=== PATIENT | female | born 1935 | race Caucasian/White ===

== ENCOUNTER → 2016-05-27 | Outpatient (CLI) | payer OTHER, BC | LOC: MMPC 11:11 | DX: J69.0 Pneumonitis due to inhalation of food and vomit (principal); K21.9 Gastro-esophageal reflux disease without esophagitis; K58.9 Irritable bowel syndrome, unspecified; K31.84 Gastroparesis; G47.30 Sleep apnea, unspecified; F41.9 Anxiety disorder, unspecified; I10 Essential (primary) hypertension; R73.9 Hyperglycemia, unspecified; G62.9 Polyneuropathy, unspecified | CPT/HCPCS: 99213; G0463 ==

== ENCOUNTER → 2016-07-02 | Outpatient (CLI) | payer OTHER, BC ==
--- NOTE | 2016-07-02 13:10 | DI ---
XR CXR 2VW PA/LAT,07/02/2016 11:10 AM: Clinical History: Recurrent aspiration pneumonia. Previous Exam: February 27, 2016 Findings: PA and lateral views of the chest are obtained, and demonstrate airspace disease within both lung bas es slightly worse than the prior exam. There is gentle dextroscoliosis of the midthoracic spine centered at the T5/6 level. The cardiomediastinal silhouette is unremarkable. Impression: Airspace disease within both lung bases most consistent with aspiration pneumonia. This is slightly w orse than on the prior exam.
[2016-07-02 13:15] LABS: CALCIUM 9.9 mg/dL (8.7-10.7); CREATININE 0.6 mg/dL (0.50-1.20); POTASSIUM 4.1 meq/L (3.8-5.2)
== END ==
LOC: MOB RAD 11:46
DX: J69.0 Pneumonitis due to inhalation of food and vomit (principal); I10 Essential (primary) hypertension
CPT/HCPCS: 36415; 71020; 80048

== ENCOUNTER → 2016-07-18 | Outpatient (CLI) | payer OTHER, BC | LOC: MMPC 11:11 | PROVIDERS: ATTEND Surgery | DX: R13.12 Dysphagia, oropharyngeal phase (principal); J69.0 Pneumonitis due to inhalation of food and vomit | CPT/HCPCS: 99212; G0463 ==

== ENCOUNTER 2016-07-19 08:02 | Day surgery (SDC) | payer OTHER, BC ==
[~2016-07-19 08:02] MED LIST: LIDOCAINE 2% VISCOUS(20 MG/1 ML) - 15 ML UD CUP PO ONE; LIDOCAINE W/ SODIUM BICARB 0.5 ML SYR ONE; Lactated Ringers 1,000 ML PRIMARY IV ONE; fentaNYL Inj 100 MCG/2 ML VIAL ONE
--- NOTE | 2016-07-19 09:08 | GEN.OPNOTE ---
EGD Operative Note Surgery Date: 07/19/16 Preoperative Diagnosis: Recurrent aspiration and oral pharyngeal dysphagia Postoperative Diagnosis: Same as preop Procedure: EGD with PEG tube placement Surgeon: Joao Blake MD Anesthesia Provider: Hai Cuevas CRNA Anesthesia Type: Local, MAC Indications: Patient has oropharyngeal dysphagia and recurrent aspiration pneumonias Findings: Esophagus: Olympus video EGD scope inserted and posterior pharynx appear to be normal.. Patient had normal-appearing esophagus. GE Junction : GE junction proximal for 30 cm from incisors Fundus : Fundus appeared be normal Body : Body had old scar from previous PEG tube Prepyloric : Prepyloric is free from disease Small Intestine : A lubricated flexible upper endoscope was inserted and passed through the esophagus and stomach into the duodenum. Additional Details: Patient had the abdominal wall transilluminated. We prepped the area with Betadine. Infiltrated 1% Xylocaine without epinephrine for local anesthetic. Placed a large-bore needle percutaneously into the stomach. This was then grasped with the snare. Guidewire was then placed through the needle. Guidewire was grasped. The needle was removed and guidewire was advanced to through the esophagus into the oropharyngeal out the mouth. PEG tube was secured to the guidewire small incision is made in the skin and the guidewire and PEG tube is brought up to the stomach and percutaneously. Is connected in place appropriately. She tolerated procedure well and there were no competitions
[2016-07-19 09:49] VITALS: RESP 16
[2016-07-19 10:24] VITALS: TEMP 97.4
== END 2016-07-19 10:20 | disposition home or self-care (01) ==
LOC: SDSC 08:02
PROVIDERS: ATTEND Surgery
DX: R13.12 Dysphagia, oropharyngeal phase (principal); J69.0 Pneumonitis due to inhalation of food and vomit
CPT/HCPCS: 43246; J2704; J3010; J7120

== ENCOUNTER → 2016-07-30 | Outpatient (CLI) | payer OTHER, BC | LOC: MMPC 11:11 | PROVIDERS: ATTEND Surgery | DX: Z48.815 Encounter for surgical aftercare following surgery on the digestive system (principal) ==

== ENCOUNTER → 2016-07-31 | Outpatient (CLI) | payer OTHER, BC | LOC: MMPC 09:00 | DX: J69.0 Pneumonitis due to inhalation of food and vomit (principal); K21.9 Gastro-esophageal reflux disease without esophagitis; G47.30 Sleep apnea, unspecified; I10 Essential (primary) hypertension; M16.12 Unilateral primary osteoarthritis, left hip; K58.9 Irritable bowel syndrome, unspecified | CPT/HCPCS: 99213; G0463 ==

== ENCOUNTER 2016-09-19 15:13 | Inpatient (IN) | payer OTHER, BC ==
[2016-09-19] MEDS ORDERED: Sodium Chloride 0.9% 1,000 ML PRIMARY IV ONE (15:33)
[2016-09-19] MEDS ORDERED: IPRATROPIUM/ALBUTEROL SULFATE 3 ML NEB NEB ONE (15:33)
[2016-09-19] MEDS ORDERED: NORMAL SALINE 10 ML SYRINGE FLUSH IVP PRN ×2 (15:33→20:31)
[2016-09-19 16:09] LABS: VENOUS PH 7.47 (7.32-7.42)
[2016-09-19 16:19] LABS: BASOPHILS # (AUTO) 0.03 10*3/UL; BASOPHILS % (AUTO) 0.2 % (0-1); EOSINOPHILS # (AUTO) 0.02 10*3/UL; EOSINOPHILS % (AUTO) 0.1 % (0-8); HEMATOCRIT 38.1 % (37.0-47.0); HEMOGLOBIN 12.4 g/dL (12.0-16.0); LYMPHOCYTES # (AUTO) 3.23 10*3/uL; MEAN CORPUSCULAR HEMOGLOBIN 29.7 PG (27-31); MEAN CORPUSCULAR HGB CONC 32.5 g/dL (33-37); MEAN CORPUSCULAR VOLUME 91.1 FL (81-99); MEAN PLATELET VOLUME 11.2 FL (7.4-12.2); MONOCYTES # (AUTO) 0.88 10*3/UL (0.3-0.8); MONOCYTES % (AUTO) 6.4 % (5-15); NEUTROPHILS % (AUTO) 69.5 % (50-80); RED BLOOD COUNT 4.18 10^6/uL (4.20-5.40)
[2016-09-19 16:22] LABS: PLATELET MORPHOLOGY COMMENT NORMAL MORPHOLOGY (NORM); RBC MORPHOLOGY COMMENT NORMAL MORPHOLOGY (NORM); WBC MORPHOLOGY COMMENT NORMAL MORPHOLOGY (NORM)
[2016-09-19 16:42] LABS: BUN/CREATININE RATIO 33.33 (6-20); C-REACTIVE PROTEIN 4.1 mg/dL (0.0-0.9); CALCIUM 9.2 mg/dL (8.7-10.7)
--- NOTE | 2016-09-19 17:14 | DI ---
XR CXR 2VW PA/LAT,09/19/2016 3:33 PM: Clinical History: Cough and dyspnea. Previous Exam: July 02, 2016 Findings: PA and lateral views of the chest are obtained, and demonstrate bronchiectasis within the lung bases bilaterally most consistent with chronic aspiration. There is some stable density within the lung bas es. There are some stable flattening of the hemidiaphragms as well. Impression: Bronchiectasis within the lung bases with some possible mild airspace disease without richard pneumonia at this time.
--- NOTE | 2016-09-19 19:13 | DI ---
CT CTA CHEST NONCORONARY W/WO,09/19/2016 4:59 PM: Clinical History: Dyspnea and elevated d-dimer. Previous Exam: November 05, 2015 Findings: Multiple helically acquired CT images are obtained through the chest following the intravenous admini stration of 70 cc of Isovue 300, and demonstrate airspace disease within the right lung base with sean e prominence in the parahilar region most consistent with lymphadenopathy. There is no pulmonary embo lism identified. There is some airspace disease within the left lung base as well. There is a PEG tube noted. Impression: Early bilateral lower lobe pneumonia most consistent with aspiration. No evidence of pulmonary embolism.
[2016-09-19] MEDS ORDERED: Ertapenem Inj 1 GM in Sodium Chloride 0.9% 100 ML IV ONE (19:37)
[2016-09-19] MEDS ORDERED: DOCUSATE SODIUM 100 MG PEG PRN (20:31)
[2016-09-19] MEDS ORDERED: LIDOCAINE W/ SODIUM BICARB 0.5 ML SYR SUBD PRN (20:31)
[2016-09-19] MEDS ORDERED: ONDANSETRON 4 MG/2 ML VIAL IVP PRN (20:31)
[2016-09-19] MEDS ORDERED: MELATONIN PO SCH (21:00)
[2016-09-19] MEDS ORDERED: PYRIDOXINE PO SCH (21:00)
[2016-09-19] MEDS: Clindamycin 900mg (Premix) 900 MG in Dextrose 1 BAG IV SCH (21:30)
[2016-09-19] MEDS: cefTRIAXone Inj 2 GM in Sodium Chloride 0.9% 100 ML IV SCH (21:30)
[2016-09-19] MEDS: DULOXETINE 60 MG CAPSULE PO SCH (21:34)
[2016-09-19] MEDS: GABAPENTIN 300 MG CAPSULE PO SCH (21:43)
[2016-09-19] MEDS: busPIRone HCL 5 MG TABLET PO SCH (21:44)
--- NOTE | 2016-09-19 21:49 | PDOC ---
History and Physical - History of Present Illness Date and Time of Service: 09/19/2016, 2141 Chief Complaint: Cough and fever History of Present Illness: Carey is a very pleasant 80-year-old female who has had problems with aspiration pneumonia and pneumonitis, accompanied with dysphasia from meningitis and weight loss. She comes in tonight stating that over the last 2 days she's noticed worsening cough and fever 101 yesterday. She states that she had sepsis with pneumonia, aspiration pneumonia, noted in April and was treated for this in [place] for about 5 days in the hospital. She was worried she can get much sicker and much more ill if she did not address this earlier. She came in for evaluation today and was found to have a right-sided pneumonia. This is in the lower lobe on chest x-ray and on CT scan. CT scan was negative for pulmonary emboli. The patient has not been on antibiotics since about May or so for aspiration pneumonia. She recently had her PEG tube replaced/3 done in July of this year. She details to me that she actually had the PEG tube pulled in February 2016 when her swallow study showed that she had improved swallow function. Since that time, the swallow function has worsened again. She weighed 136 pounds in 2015 at the time of her PEG tube placement. Her weight is now 123 pounds. The patient denies any nausea or vomiting. She notes that she has acid reflux and sometimes feels an acid taste in her throat. She is not on any acid reflux medications. She does not recall any specific aspiration event leading up to this pneumonia as an instigating factor, but the patient does note that she's had a chronic cough now for some time, and she also mentions that she had a vocal cord dysfunction on the right in the past as well. She states she occasionally coughs up some phlegm and she' s not sure if it comes from her stomach or not. On my review of the surgical note from her most recent PEG tube placement, her esophagus appeared normal. No other exacerbating factors. Her pneumonia severity index score was 69, class II pneumonia and her see CURB65 score was 1. Past Medical History Medical History: 1. Hypertension. 2. Idiopathic peripheral neuropathy. 3. Anxiety. 4. H. influenzae meningitis in 2013. 5. History of gastroparesis. 6. Obstructive sleep apnea, on CPAP. 7. Loss of weight, adult. 8. Recurrent aspiration pneumonia. Surgical History: 1. Cholecystectomy 2007. 2. Hysterectomy. 3. Degenerative disc disease status post rhizotomy in 2010. 4. Gallstone pancreatitis with cholecysectomy. 5. appendectomy. 6. Tonsillectomy and adenoidectomy. 7. PEG tube placement 2, most recently July 2016 Pertinent Family History: Congestive heart failure both parents Past Social History: Does not smoke. . Has children, grandchildren and 7 great-grandchildren. Does not drink alcohol. The patient's has dementia. The patient lives here in [place], [place]. Tobacco Use: Never Smoker Substance Use Type: None Alcohol Use: None Medication / Allergies Home Medications: Home Medications Medication Instructions Recorded Confirmed Type Gabapentin 1 cap PO TID #90 cap 09/26/14 09/19/16 Clinic busPIRone HCL [Buspirone HCl] 5 mg PO BID #60 tablet 12/15/14 09/19/16 Rx Fluticasone Nasal [place] 0.05% 2 spray INH BEDTIME PRN 11/05/15 09/19/16 History [Flonase Nasal [place] 0.05%] Docusate Sodium [Colace] 100 mg PEG BID PRN #100 ml 11/10/15 09/19/16 Rx Amlodipine Besylate 1 tab PO DAILY #90 tab 12/25/15 09/19/16 Clinic Melatonin/Pyridoxine [Melatonin 3 1 tab PO QD #30 tab 04/29/16 09/19/16 Clinic mg Tablet] Duloxetine HCl [Cymbalta] 1 cap PO BID #180 cap 07/02/16 09/19/16 Clinic Psyllium Husk (with Sugar) 1 unit PO DAILY 07/30/16 09/19/16 History [Metamucil Powder] Allergies/Adverse Reactions: Allergies Allergy/AdvReac Type Severity Reaction Status Date / Time Penicillins Allergy Intermediate HIVES Verified 09/19/16 15:34 Review of Systems - Review of Systems All Systems: Reviewed & No Additional Complaints Except as Stated (I did a 12 point review systems and it was negative except as per history of present illness and that noted below.) - Respiratory Respiratory: REPORTS: See HPI - Cardiovascular Cardiovascular: REPORTS: Negative System Review - Gastrointestinal Gastrointestinal / Abdominal: REPORTS: Constipation (Periodically, but relieved with MiraLAX), Poor Appetite, Other (States that she had a history of gastroparesis in the past) - Musculoskeletal Musculoskeletal: REPORTS: Back Pain, Joint Pain - Shoulders, Other (Complains of joint pain, particularly shoulders and back. Apparently had some back problems with arthritis in the past but they resolved and have been gradually returning.) - Neurological Neurologic: REPORTS: Headache (Yesterday, treated with liquid Advil. Not very common.) Exam - Vitals Vital Signs: Vital Signs Height 5 ft 5 in Weight 123 lb 12.8 oz Vital Signs - Last Taken Temperature 98 F 09/19/16 15:15 Pulse Rate 79 09/19/16 20:32 Respiratory Rate 18 09/19/16 20:32 Blood Pressure 139/74 09/19/16 15:15 Pulse Ox 91 09/19/16 15:15 Currently on room air. - General General Appearance: POSITIVE: No Acute Distress, Cooperative, Thin - Head Head Exam: POSITIVE: Normal Inspection, Normocephalic, Atraumatic - Eye Eye Exam: POSITIVE: EOMI, No Scleral Icterus - ENT ENT Exam: POSITIVE: Mucous Membranes Dry - Neck Neck Exam: POSITIVE: Normal Inspection, No Tenderness, No Thyromegaly - Respiratory Respiratory Exam: POSITIVE: Breathing Non Labored, Decreased Breath Sounds (In right lower base.) - Cardiovascular Cardiovascular Exam: POSITIVE: RRR, No Murmur, No Clicks, No Gallops, No Rubs, No JVD - GI/Abdominal GI/Abdominal Exam: POSITIVE: Normal Bowel Sounds, Non Tender, Non Distended, Soft Additional GI/Abdominal Exam Details: PEG tube site looks clean, dry, intact. Tube looks positioned correctly. - Rectal Rectal Exam: POSITIVE: Deferred - External Exam: POSITIVE: Deferred Exam: POSITIVE: Deferred - Extremities Extremities Exam: POSITIVE: No Clubbing Present, No Edema Present, No Cyanosis Present - Back Back Exam: POSITIVE: Normal Inspection, No CVA Tenderness - Neurological Neurological Exam: POSITIVE: Alert, Oriented x 3, No Facial Droop, Speech Intact / Clear, Moves All Extremities Equally - Psychiatric Psychiatric Exam: POSITIVE: Normal Affect, Normal Mood - Integumentary Integumentary Exam: POSITIVE: Normal Color, Warm, Dry, Intact Results - Labs CBC and BMP: 09/19/16 16:15 09/19/16 16:15 Labs - Last 24 Hours: Laboratory Results 09/19/16 09/19/16 Range/Units 15:59 16:15 WBC 13.69 H (4.8-10.8) 10^3/uL RBC 4.18 L (4.20-5.40) 10^6/uL Hgb 12.4 (12.0-16.0) g/dL Hct 38.1 (37.0-47.0) % MCV 91.1 (81-99) FL MCH 29.7 (27-31) PG MCHC 32.5 L (33-37) g/dL RDW Std Deviation 46.2 (39-50) fL RDW Coeff of Reid 14.2 (11.5-14.5) % Plt Count 251 (140-350) 10*3/uL MPV 11.2 (7.4-12.2) FL Immature Gran % (Auto) 0.2 (0-5) % Neut % (Auto) 69.5 (50-80) % Lymph % (Auto) 23.6 (10-50) % Alfalfa % (Auto) 6.4 (5-15) % Eos % (Auto) 0.1 (0-8) % Baso % (Auto) 0.2 (0-1) % Immature Gran # (Auto) 0.03 10*3/UL Neut # (Auto) 9.50 10*3/UL Lymph # (Auto) 3.23 10*3/uL [place]falfa # (Auto) 0.88 H (0.3-0.8) 10*3/UL Eos # (Auto) 0.02 10*3/UL Baso # (Auto) 0.03 10*3/UL WBC Morphology Comment Normal morphology (NORM) Plt Morphology Comment Normal morphology (NORM) RBC Morph Comment Normal morphology (NORM) D-Dimer 1.51 H (0.00-0.59) mg/L VBG pH 7.47 H (7.32-7.42) VBG pCO2 32 L (45-55) mmHg VBG HCO3 23 (22-26) mmol/L VBG Base Excess 0 (-2-2) MMOL/L Sodium 135 (135-145) meq/L Potassium 4.1 (3.8-5.2) meq/L Chloride 100 (98-112) meq/L Carbon Dioxide 24 (23-33) meq/L Anion Gap 11 (5-20) BUN 20 (7-22) mg/dL Creatinine 0.6 (0.50-1.20) mg/dL Estimated GFR (>60 ml/min/1.73m(2)) BUN/Creatinine Ratio 33.33 H (6-20) Glucose 130 H (78-110) mg/dL Calculated Osmolality 284.0 (267-292) mOsm/kg Lactic Acid 1.0 (0.70-2.10) MMOL/L Calcium 9.2 (8.7-10.7) mg/dL Total Bilirubin 0.7 (0.3-1.2) mg/dL AST 27 (8-39) IU/L ALT 28 (9-52) IU/L Alkaline Phosphatase 54 (38-126) IU/L Troponin I < 0.012 (< 0.040) ng/mL C-Reactive Protein 4.1 H (0.0-0.9) mg/dL NT-Pro-B Natriuret Pep 218 (0-450) PG/ML Total Protein 7.4 (6.1-8.0) g/dL Albumin 4.0 (3.5-4.8) g/dL Globulin 3.4 (2.50-4.10) g/dL Albumin/Globulin Ratio 1.10 L (1.3-2.0) mg/g - Imaging Status: Image Reviewed by Me (Chest x-ray, on my view, shows a right-sided pneumonia with a silhouette sign along the diaphragm. A CT scan of the chest on my view shows bilateral pneumonia, right greater than left. I did not notice any effusions.) Assessment and Plan - Patient Problems (1) Aspiration pneumonia Current Visit: Yes Status: Acute Qualifiers: Aspiration pneumonia type: due to regurgitated food Laterality: right Lung location: lower lobe of lung Qualified Description: Aspiration pneumonia of right lower lobe due to regurgitated food Qualifier Code(s): (J69.0) Pneumonitis due to inhalation of food and vomit (2) Dysphagia Current Visit: Yes Status: Chronic Qualifiers: Dysphagia type: other dysphagia Qualified Description: Other dysphagia Qualifier Code(s): (R13.19) Other dysphagia (3) Hypertension Current Visit: Yes Status: Chronic Qualifiers: Hypertension type: essential hypertension Qualified Description: Essential hypertension Qualifier Code(s): (I10) Essential (primary) hypertension (4) Peripheral neuropathy Current Visit: Yes Status: Chronic Qualifiers: Peripheral neuropathy type: idiopathic neuropathy, unspecified Qualified Description: Idiopathic peripheral neuropathy Qualifier Code(s) : (G60.9) Hereditary and idiopathic neuropathy, unspecified (5) S/P percutaneous endoscopic gastrostomy (PEG) tube placement Current Visit: Yes Status: Chronic (6) Anxiety Current Visit: Yes Status: Chronic (7) Obstructive sleep apnea Current Visit: Yes Status: Acute - Assessment / Plan Additional Assessment/Plan Details: Admit the patient. Clindamycin and Rocephin. May hopefully eliminate clindamycin but will watch clinical response over the next 48 hours. Also, given the recurrent nature of this and possible chronicity of this pneumonia, I may discuss with infectious disease tomorrow and see if they have any different recommendations. Prevnar 13 valent. The patient denies getting Pneumovax in [place] at the setting of her pneumonia. We'll get nutrition consult/dietary consult to help with tube feeding. Continue Jevity 1.5 and keep the patient upright at 30-45 to help prevent aspiration. I think the patient might benefit from a proton pump inhibitor, I will start Prevacid daily. May need to consider getting gastric emptying studies. I'll check a sedimentation rate, with the increased joint pain, polymyalgia rheumatica could certainly be in the differential although I suspect this is really pneumonia causing issues. I would expect a sedimentation rate to be elevated and pneumonia but not in the ranges of polymyalgia rheumatica. Check a phosphorous in the morning. I advised the patient to consider getting a bed that has the ability to elevate the head. Repeat swallow study in a.m. with OT. May need to continue speech therapy. May consider getting records on vocal cord dysfunction as well. That could be an issue and could explain why the patient is aspirating as well. Patient is full code, I discussed this with the patient and her daughter at bedside. I discussed the above plan with the patient and her daughter and they agreed with the plan. Photo / Body Diagrams - Uploaded Photos Uploaded Photos:
[2016-09-19] MEDS ORDERED: LANSOPRAZOLE 30 MG SOLUTAB PO ONE (22:00)
[2016-09-19] MEDS ORDERED: Pneumococcal Vacc 13 Syringe 0.5 ML DISP.SYRIN IM SCH (22:00)
[2016-09-19] MEDS: FLUTICASONE PROPIONATE 16 GRAM (120 SPRAYS / BOTTLE) ENOS SCH (22:20)
[2016-09-20] MEDS: Clindamycin 900mg (Premix) 900 MG in Dextrose 1 BAG IV SCH ×3 (04:21→22:28)
[2016-09-20] MEDS: NORMAL SALINE 10 ML SYRINGE FLUSH IVP PRN (04:22)
[2016-09-20 05:33] LABS: BASOPHILS # (AUTO) 0.03 10*3/UL; BASOPHILS % (AUTO) 0.3 % (0-1); EOSINOPHILS # (AUTO) 0.01 10*3/UL; EOSINOPHILS % (AUTO) 0.1 % (0-8); HEMOGLOBIN 12.2 g/dL (12.0-16.0); LYMPHOCYTES # (AUTO) 2.31 10*3/uL; MEAN CORPUSCULAR HEMOGLOBIN 29.9 PG (27-31); MEAN CORPUSCULAR VOLUME 90.7 FL (81-99); MEAN PLATELET VOLUME 11.9 FL (7.4-12.2); NEUTROPHILS # (AUTO) 7.96 10*3/UL; NEUTROPHILS % (AUTO) 70.7 % (50-80); RED BLOOD COUNT 4.08 10^6/uL (4.20-5.40)
[2016-09-20 05:35] LABS: PLATELET MORPHOLOGY COMMENT NORMAL MORPHOLOGY (NORM); RBC MORPHOLOGY COMMENT NORMAL MORPHOLOGY (NORM); WBC MORPHOLOGY COMMENT NORMAL MORPHOLOGY (NORM)
[2016-09-20 06:06] LABS: BUN/CREATININE RATIO 26.66 (6-20); CALCIUM 8.9 mg/dL (8.7-10.7)
[2016-09-20 06:27] LABS: ERYTHROCYTE SEDIMENTATION RATE 28 MM/HR (0-20)
[2016-09-20] MEDS: LANSOPRAZOLE 30 MG SOLUTAB PO SCH (06:38)
--- NOTE | 2016-09-20 07:18 | PDOC ---
General Adult HPI - General Chief Complaint: Dyspnea Stated Complaint: dyspnea Date Seen by Provider: 09/19/16 Time Seen by Provider: 15:15 Source: POSITIVE: Patient, Other (daughter) Exam Limitations: POSITIVE: No limitations Nurse's Notes Reviewed & Considered: Yes - History of Present Illness Initial Comment: The patient is a 80-year-old female. She states that for the past day, approximately, she has had increased cough and dyspnea. Patient states that she has a history of recurring aspiration pneumonia. She had a feeding tube placed in room to help reduce the frequency of her aspiration. Patient states that she thinks she might have been running a fever yesterday. She also complains of increased hoarseness for the past 2 days and some sore throat. Her daughter brought her to the emergency room. 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 Have you received a tetanus shot in the past 10 years?: Unknown Body Location Affected: REPORTS: Chest (Cough, shortness of breath) Timing: REPORTS: Gradual, Getting Worse Duration: <24 hours Severity: Moderate Quality: REPORTS: Other (No pain anywhere except for mild sore throat.) Context: REPORTS: None Modifying Factors: improves with: Coughing Similar Symptoms Previously: Yes Recent Care Received: REPORTS: Denies Any Prior Injuries Related to Current Complaint?: No - Patient Home Medications Home Medications: Home Medications Gabapentin 1 cap PO TID #90 cap 09/26/14 busPIRone HCL [Buspirone HCl] 5 mg PO BID #60 tablet 12/15/14 Fluticasone Nasal [place] 0.05% [Flonase Nasal [place] 0.05%] 2 spray INH BEDTIME PRN 11/05/15 Docusate Sodium [Colace] 100 mg PEG BID PRN #100 ml 11/10/15 Amlodipine Besylate 1 tab PO DAILY #90 tab 12/25/15 Melatonin/Pyridoxine [Melatonin 3 mg Tablet] 1 tab PO QD #30 tab 04/29/16 Duloxetine HCl [Cymbalta] 1 cap PO BID #180 cap 07/02/16 Psyllium Husk (with Sugar) [Metamucil Powder] 1 unit PO DAILY 07/30/16 - Patient Allergies Allergies/Adverse Reactions: Allergies Allergy/AdvReac Type Severity Reaction Status Date / Time Penicillins Allergy Intermediate HIVES Verified 09/20/16 06:28 Past Medical History - heen HEENT History: Denies History, Hard of Hearing Additional HEENT History: Bilateral Hearing aids. usually only wears left Cardiovascular History: Hypertension Respiratory History: Pneumonia, Home CPAP Use Additional Respiratory History: Home CPAP with oxygen at night. No oxygen during day. PNEUMONIA X 4 (LAST 04/2016). SILENT ASPIRATIONS/ PEG TUBE PLACEMENT 07/26 Gastrointestinal History: GERD, Irritable Bowel Syndrome Additional Gastrointestinal History: GASTROPARESIS Genitourinary History: Denies History Endocrine History: Denies History Musculoskeletal History: Arthritis Prosthesis or Implant: Yes (Left hip) Additional Musculoskeletal History: Had Left hip surgery November 2014 Neurological History: Meningitis Additional Neurological History: NEUROPATHY. Anxiety. PT's daughter states that patient does not have Alzheimer's or Dementia. MENINGITIS CAUSED NEUROPATHY Blood Disorders: Denies History Psychiatric History: Anxiety Disorders Additional Psychiatric History: anxiety History of Sexually Transmitted Diseases: No Female Reproductive History: Hysterectomy Cancer History: Denies History In Past Year Been Physically Harmed or Verbally Threatened: No History of MDRO: No Other Type of MDRO: bacterial menigitis Jan 2014 History of Other Communicable Diseases: No Tobacco Use: Never Smoker Alcohol Use: None Substance Use Type: None Previous Surgical History: Yes Type / Date of Surgery: LEFT FOOT S FEEDING TUBE/SOPHIE/TONSILLECTOMY/ HYSTERECTOMY, APPENDECTOMY, Left hip surgery, REMOVAL OF PANCREATIC STONE Anesthesia Reactions: No Malignant Hyperthermia: No Family History of Malignant Hyperthermia: No Significant Family History: No pertinent family hx Past Medical History Reviewed: Reviewed - No Changes ROS - Limitations ROS Limitations: No Limitations Constitution: REPORTS: Fever Cardiovascular: REPORTS: Denies Cardiac Symptoms Respiratory: REPORTS: Cough Productive, Shortness Of Breath Neurological: REPORTS: Denies Neuro Symptoms Gastrointestinal: REPORTS: Denies GI Symptoms Endocrine: REPORTS: Denies Symptoms Musculoskeletal: REPORTS: Denies MS Symptoms Genitourinary: REPORTS: Denies Symptoms Eyes: REPORTS: Denies Symptoms ENT: REPORTS: Sore Throat (Sore throat; hoarseness) Skin: REPORTS: Denies Skin Symptoms Lympathic: REPORTS: Denies Lympathic Symptoms Immunologic: POSITIVE: Denies Symptoms Psychiatric: POSITIVE: Denies Psych Symptoms General Adult Exam - General Appearance General Appearance: POSITIVE: Alert, Cooperative, No Acute Distress, No Evidence of Trauma - HEENT HEENT: POSITIVE: Head Inspection Nml, Eyes Inspection Nml, Ears Inspection Nml, Nose Inspection Nml, Oral/Dental Inspect. Nml, Pharynx Inspect. Nml, PERRL, EOMI - Pupils Pupil Size: 3 mm: Bilateral (PERRLA) - Neck Neck: POSITIVE: Normal Inspection, Thyroid Normal - Respiratory Respiratory: POSITIVE: Rales (Rales both lung bases) - Cardiovascular Cardiovascular: POSITIVE: Regular Rate & Rhythm, No Murmur, No Gallop, PMI Normal Peripheral Pulses: Radial (R): 2+, Radial (L): 2+ - Abdomen Abdomen: Soft: (All Quadrants), Normal Bowel Sounds: (All Quadrants), Denies Tenderness: (All Quadrants), No Splenomegaly: (All Quadrants), No Hepatomegaly: (All Quadrants), No Guarding: (All Quadrants), No Rebound: (All Quadrants), No Palpable Pulse: (All Quadrants), No Palpabale Mass: (All Quadrants), No Distention: (All Quadrants), No Rigidity: (All Quadrants) - Back Back: POSITIVE: Normal Inspection - Skin Skin: POSITIVE: Normal Color, Warm, Dry, No Rash - Extremities Extremity: Non-Tender: (All Extremities), Normal ROM: (All Extremities), Normal Inspection: (All Extremities) - Neurological / Psychological Neurological: POSITIVE: Oriented X3, 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 Normal As Tested, Motor Normal, Sensation Normal, 5, 6 General Adult Progress - Results Reviewed by me Xrays/CTs/US Reviewed by me: Yes Discussed with Radiologist: Yes Radiology Findings: Bronchiectasis with some airspace disease on chest x-ray; CTA chest shows bilateral lower lobe pneumonia Lab Results Reviewed: Yes Lab Results:: Laboratory Results 09/19/16 09/19/16 Range/Units 15:59 16:15 WBC 13.69 H (4.8-10.8) 10^3/uL RBC 4.18 L (4.20-5.40) 10^6/uL Hgb 12.4 (12.0-16.0) g/dL Hct 38.1 (37.0-47.0) % MCV 91.1 (81-99) FL MCH 29.7 (27-31) PG MCHC 32.5 L (33-37) g/dL RDW Std Deviation 46.2 (39-50) fL RDW Coeff of Reid 14.2 (11.5-14.5) % Plt Count 251 (140-350) 10*3/uL MPV 11.2 (7.4-12.2) FL Immature Gran % (Auto) 0.2 (0-5) % Neut % (Auto) 69.5 (50-80) % Lymph % (Auto) 23.6 (10-50) % [place] % (Auto) 6.4 (5-15) % Eos % (Auto) 0.1 (0-8) % Baso % (Auto) 0.2 (0-1) % Immature Gran # (Auto) 0.03 10*3/UL Neut # (Auto) 9.50 10*3/UL Lymph # (Auto) 3.23 10*3/uL [place] # (Auto) 0.88 H (0.3-0.8) 10*3/UL Eos # (Auto) 0.02 10*3/UL Baso # (Auto) 0.03 10*3/UL WBC Morphology Comment Normal morphology (NORM) Plt Morphology Comment Normal morphology (NORM) RBC Morph Comment Normal morphology (NORM) D-Dimer 1.51 H (0.00-0.59) mg/L VBG pH 7.47 H (7.32-7.42) VBG pCO2 32 L (45-55) mmHg VBG HCO3 23 (22-26) mmol/L VBG Base Excess 0 (-2-2) MMOL/L Sodium 135 (135-145) meq/L Potassium 4.1 (3.8-5.2) meq/L Chloride 100 (98-112) meq/L Carbon Dioxide 24 (23-33) meq/L Anion Gap 11 (5-20) BUN 20 (7-22) mg/dL Creatinine 0.6 (0.50-1.20) mg/dL Estimated GFR (>60 ml/min/1.73m(2)) BUN/Creatinine Ratio 33.33 H (6-20) Glucose 130 H (78-110) mg/dL Calculated Osmolality 284.0 (267-292) mOsm/kg Lactic Acid 1.0 (0.70-2.10) MMOL/L Calcium 9.2 (8.7-10.7) mg/dL Total Bilirubin 0.7 (0.3-1.2) mg/dL AST 27 (8-39) IU/L ALT 28 (9-52) IU/L Alkaline Phosphatase 54 (38-126) IU/L Troponin I < 0.012 (< 0.040) ng/mL C-Reactive Protein 4.1 H (0.0-0.9) mg/dL NT-Pro-B Natriuret Pep 218 (0-450) PG/ML Total Protein 7.4 (6.1-8.0) g/dL Albumin 4.0 (3.5-4.8) g/dL Globulin 3.4 (2.50-4.10) g/dL Albumin/Globulin Ratio 1.10 L (1.3-2.0) mg/g - Patient's Progress Pain Medication Addressed: POSITIVE: Not Applicable School/Work Release Addressed: POSITIVE: Not Applicable Re-Examine Time: 19:00 Re-Examine Comment: 1 g Invanz started after blood cultures. DuoNeb nebulizer treatment given. Patient states she feels somewhat better after this. Case discussed with hospitalist, Dr. Arzate, and patient admitted to his care. Status: POSITIVE: Improved, Re-Examined Antibiotics Given: Yes (Invanz, 1 g IV) Quality Measure Initiative: CAP: POSITIVE: SaO2, Antibiotic(s), BC, CXR or CT - Consult Consult (If Yes, Name of Consulting MD & Time Called): Yes (Dr. Arzate, hospitalist, 1919) Consulting MD will see pt:: [place]IVE[place] [facility] [place] Counseled: POSITIVE: Patient, Family, RE: Lab Results, RE: Radiology Results, RE : DX, RE: Need for F/U Patient Care Time - Estimated PCT Patient Care Time (In Minutes): 65 Vital Signs - VS Reviewed Vital Signs Reviewed: Yes Discharge Clinical Impression: Pneumonia Discharge Disposition: Admit to Inpatient Condition: Fair Date Decision to Admit to Inpatient: 09/19/16 Time Decision to Admit to Inpatient: 19:00
--- NOTE | 2016-09-20 09:20 | DI ---
XR ESOPHAGRAM,09/20/2016 7:00 AM: Clinical History: Aspiration Previous Exam: November 06, 2015 Procedure: Fluoroscopic support was provided to speech therapy for the performance of a modified mike um swallow. Applesauce with barium demonstrated normal clearance. There was some temporary suspension within the vallecula which was cleared with subsequent swallowing. Honey thickened liquids with barium demonstrated immediate penetration into the proximal trachea. Applesauce was again administered successfully without evidence of aspiration. Findings: Imaging findings demonstrate some penetration into the proximal trachea. There was good clearance of the thickened applesauce. Mild degenerative changes of the cervical spine are seen. Impression: Good clearance of applesauce with aspiration during the exam of honey thickened liquids. Please refer to speech pathology notes for further details.
[2016-09-20] MEDS: busPIRone HCL 5 MG TABLET PO SCH ×2 (09:57→21:31)
[2016-09-20] MEDS: ENOXAPARIN SODIUM 30 MG/0.3 ML SYRINGE SUBCUT SCH (09:57)
[2016-09-20] MEDS: DULOXETINE 60 MG CAPSULE PO SCH ×2 (09:58→21:31)
[2016-09-20] MEDS: GABAPENTIN 300 MG CAPSULE PO SCH ×3 (09:58→21:31)
--- NOTE | 2016-09-20 12:08 | PDOC(PROG) ---
Date and Time of Service: 09/20/2016, 1205 Interval History: Copies about the same. No fevers. Overall feeling a bit better. Started on Prevacid for reflux. I spoke with infectious disease, and detailed this conversation to the patient. Ultimately no indication for prophylactic antibiotics. They would be amenable to having the patient do when necessary antibiotics for fevers that develop at home. The patient thinks this might be a good idea. Keeping her head at 30-45 makes most sense. There may be some financial issues that are preventing the idea of getting a bed that can raise at home. Patient does not show delayed gastric emptying and I was able to review some records from the research/program director in [place] and the patient had normal vocal cord function. We also discussed the swallow evaluation which showed the patient has significant dysphasia. She really has not responded at all to speech therapy. Objective : Data - Labs CBC and BMP: 09/20/16 04:24 09/20/16 04:24 Labs - Last 24 Hours: Laboratory Results 09/20/16 Range/Units 04:24 WBC 11.24 H (4.8-10.8) 10^3/uL RBC 4.08 L (4.20-5.40) 10^6/uL Hgb 12.2 (12.0-16.0) g/dL Hct 37.0 (37.0-47.0) % MCV 90.7 (81-99) FL MCH 29.9 (27-31) PG MCHC 33.0 (33-37) g/dL RDW Std Deviation 45.3 (39-50) fL RDW Coeff of Reid 14.0 (11.5-14.5) % Plt Count 233 (140-350) 10*3/uL MPV 11.9 (7.4-12.2) FL Immature Gran % (Auto) 0.3 (0-5) % Neut % (Auto) 70.7 (50-80) % Lymph % (Auto) 20.6 (10-50) % [place] % (Auto) 8.0 (5-15) % Eos % (Auto) 0.1 (0-8) % Baso % (Auto) 0.3 (0-1) % Immature Gran # (Auto) 0.03 10*3/UL Neut # (Auto) 7.96 10*3/UL Lymph # (Auto) 2.31 10*3/uL [place] # (Auto) 0.90 H (0.3-0.8) 10*3/UL Eos # (Auto) 0.01 10*3/UL Baso # (Auto) 0.03 10*3/UL WBC Morphology Comment Normal morphology (NORM) Plt Morphology Comment Normal morphology (NORM) RBC Morph Comment Normal morphology (NORM) ESR 28 H (0-20) MM/HR Sodium 137 (135-145) meq/L Potassium 4.6 (3.8-5.2) meq/L Chloride 112 (98-112) meq/L Carbon Dioxide 24 (23-33) meq/L Anion Gap 1 L (5-20) BUN 16 (7-22) mg/dL Creatinine 0.6 (0.50-1.20) mg/dL Estimated GFR (>60 ml/min/1.73m(2)) BUN/Creatinine Ratio 26.66 H (6-20) Glucose 84 (78-110) mg/dL Calculated Osmolality 283.0 (267-292) mOsm/kg Calcium 8.9 (8.7-10.7) mg/dL Phosphorus 3.6 (2.4-4.3) mg/dl Objective : Exam - General General Appearance: No Acute Distress, Cooperative Additional General Exam Details: Vital Signs - Last Taken Temperature 97.8 F 09/20/16 08:18 Pulse Rate 77 09/20/16 08:18 Respiratory Rate 20 09/20/16 08:18 Blood Pressure 99/51 09/20/16 08:18 Pulse Ox 93 09/20/16 08:18 On room air - Head Head Exam: Normal Inspection, Normocephalic, Atraumatic - Eye Eye Exam: No Scleral Icterus - Respiratory Respiratory Exam: Breathing Non Labored, Coarse Breath Sounds - Cardiovascular Cardiovascular Exam: RRR, No Murmur, No Clicks, No Gallops, No Rubs, No JVD - GI/Abdominal GI/Abdominal Exam: Normal Bowel Sounds, Non Tender, Non Distended, Soft - Extremities Extremities Exam: No Clubbing Present, No Edema Present, No Cyanosis Present - Neurological Neurological Exam: Alert, Oriented x 3, No Facial Droop, Speech Intact / Clear, Moves All Extremities Equally Assessment and Plan - Patient Problems (1) Aspiration pneumonia Current Visit: Yes Status: Acute Comment: On day 2 of antibiotics. Qualifiers: Aspiration pneumonia type: due to regurgitated food Laterality: right Lung location: lower lobe of lung Qualified Description: Aspiration pneumonia of right lower lobe due to regurgitated food Qualifier Code(s): (J69.0) Pneumonitis due to inhalation of food and vomit (2) Dysphagia Current Visit: Yes Status: Chronic Comment: Not reversible. Likely related to meningitis in the past. Qualifiers: Dysphagia type: other dysphagia Qualified Description: Other dysphagia Qualifier Code(s): (R13.19) Other dysphagia (3) Hypertension Current Visit: Yes Status: Chronic Qualifiers: Hypertension type: essential hypertension Qualified Description: Essential hypertension Qualifier Code(s): (I10) Essential (primary) hypertension (4) Peripheral neuropathy Current Visit: Yes Status: Chronic Qualifiers: Peripheral neuropathy type: idiopathic neuropathy, unspecified Qualified Description: Idiopathic peripheral neuropathy Qualifier Code(s) : (G60.9) Hereditary and idiopathic neuropathy, unspecified (5) S/P percutaneous endoscopic gastrostomy (PEG) tube placement Current Visit: Yes Status: Chronic (6) Anxiety Current Visit: Yes Status: Chronic (7) Obstructive sleep apnea Current Visit: Yes Status: Acute - Assessment / Plan Additional Assessment/Plan Details: For GERD symptoms, and reflux with tube feeding, continue Prevacid. Although there are some reports that proton pump inhibitors can increase pneumonia risk, I think in this situation it might actually help decrease aspiration events. Get delayed gastric emptying studies, if positive, consider Reglan. Head of bed at 30-45 at all times, and if any residual show with tube feeding, may need to consider a constant rate versus bolus feeds. If afebrile tomorrow, probably switch to by mouth medications and consider discharge by Friday. Photo / Body Diagrams - Uploaded Photos Uploaded Photos:
--- NOTE | 2016-09-20 15:54 | OTI REPORT ---
Thank you for the referral of Kellie Bello. She was seen on 09/20/16 for a modified barium swallow study. SUBJECTIVE: The patient is a 80-year-old female. The patient has quite a significant history with swallowing difficulties. The patient initially had a modified barium swallow study done with Dr. Shelley. Approximately one year ago the patient was aspirating on all types of foods and liquids. The patient had a PEG tube placed in. After approximately three months of trying different types of therapy including vital-stim in [place], the patient stated she could not do this consistently. The patient underwent another barium swallow study in [place] and it revealed that she did aspirate on thin liquids but was doing okay with the thicker liquids and pureed and mechanical soft foods per patient's report, so the patient had the PEG tube taken out. Since that time the patient had pneumonia when she was visiting her son in [place] and it revealed that she was aspirating and they put the PEG tube back in secondary to the patient not getting enough nutrition to adequately keep herself at a healthy weight. The patient states she does want to be able to eat something. She more than likely has residual chronic pneumonia in the right lung but overall she would just like to make sure that she is safe eating. She states she has been taking her pills with honey thickened liquids and has been getting honey thickened water for home. PAST MEDICAL HISTORY: Past medical history can be found in the patient's medical record. OBJECTIVE FINDINGS: Today the patient started in a lateral view. The therapist is not going to go below a honey thickened liquid or a puree as these are the main goals for the patient. The patient started with applesauce. Today with applesauce the patient was able to place food on her tongue. Labial seal was maintained. The buccal musculature was able to close off the lateral sulci to prevent food particles from pocketing between the mandible and the cheeks. The velum actively pulls anteriorly and rests against the back of the tongue. During the oral phase, the tongue propelled the food posteriorly until the swallow reflex was triggered. The patient does have a slight decrease in tongue base retraction. She does have a slight stasis and coating of the tongue. She does have a delayed swallow trigger; once starting to swallow she has a slight delay in initiating this. She does not have any oral or nasal regurgitation; however , she does have pharyngeal regurgitation from the pharynx back into the oral area of her mouth with every swallow. Food is going back into the mouth with swallowing. Oral phase is initiated when the tongue begins posterior movement of the bolus. During the pharyngeal stage, the reflexive swallow did carry the bolus to the pharynx. Again, she was having regurgitation. During this time it was observed that the patient has decreased hyoid/thyroid approximation, decreased hyoid protraction, and decreased laryngeal elevation. When tested with honey thickened liquid, she did demonstrate penetration. This was only given to her in a small spoonful. After seeing penetration of the liquid, we did not further assess any honey thickened liquid. With applesauce she did not demonstrate penetration or aspiration; however, she does have a decreased pharyngeal squeeze, has increased vallecular pooling as well as piriformis pooling, and has moderate to severe amounts of vallecular residuals and piriformis residuals. The patient had to swallow five to six times before completely clearing the vallecular and piriformis regions. ASSESSMENT: The patient has been through quite a few different modified barium swallow studies as well as two different PEG placements. Today she demonstrated being able to eat pureed foods that are thicker such as applesauce and she would more than likely be safe with pudding and or yogurts; however, the honey thickened liquid presented a very high increased risk of continual aspiration with the penetration that she demonstrated during the swallow. 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 The patient does not feel the food and or liquid that is pooling and she did not feel the penetration that started with the honey thickened liquids. Dysfunction that the patient is demonstrating is: Decreased hyolaryngeal excursion Decreased airway protection with anything less than a puree form Decreased pharyngeal contraction Impaired muscle groups: Hyolaryngeal excursion muscles Laryngeal intrinsics Pharyngeal constrictors The modified barium study was discussed with Dr. Shelley as well as the patient and her daughter. At this time they are going to continue to talk about whether the patient would like to pursue more aggressive pharyngeal strengthening with vital-stim and be more consistent with it now that we can offer that in [place] or if the patient is just going to take small bites of pureed type foods throughout the day. The patient wants to improve her abilities and to eat more than she has been able to. She may benefit from vital-stim therapy aggressively for approximately one month and then to reassess with a modified barium swallow study to see if there has been improvements made. Again, no final decision is being made at this point in time until Dr. Shelley discusses further treatment with the patient and her family. INITIAL TREATMENT: Treatment today consisted of the modified barium swallow study only. EMILY
[2016-09-20] MEDS ORDERED: PYRIDOXINE J TUBE SCH (21:00)
[2016-09-20] MEDS ORDERED: MELATONIN J TUBE SCH (21:00)
[2016-09-20] MEDS: cefTRIAXone Inj 2 GM in Sodium Chloride 0.9% 100 ML IV SCH (21:32)
[2016-09-20] MEDS: FLUTICASONE PROPIONATE 16 GRAM (120 SPRAYS / BOTTLE) ENOS SCH (22:32)
[2016-09-21] MEDS: Clindamycin 900mg (Premix) 900 MG in Dextrose 1 BAG IV SCH (05:03)
[2016-09-21] MEDS: NORMAL SALINE 10 ML SYRINGE FLUSH IVP PRN (05:03)
[2016-09-21 07:51] VITALS: RESP 16
[2016-09-21] MEDS: LANSOPRAZOLE 30 MG SOLUTAB PO SCH (08:05)
[2016-09-21] MEDS ORDERED: AmLODIPine Tab 5 MG TABLET PO SCH (09:00)
[2016-09-21] MEDS: ENOXAPARIN SODIUM 30 MG/0.3 ML SYRINGE SUBCUT SCH (09:34)
[2016-09-21] MEDS: DULOXETINE 60 MG CAPSULE PO SCH (09:35)
[2016-09-21] MEDS: GABAPENTIN 300 MG CAPSULE PO SCH ×2 (09:35→15:20)
[2016-09-21] MEDS: busPIRone HCL 5 MG TABLET PO SCH (09:36)
[2016-09-21] MEDS ORDERED: CEFUROXIME 500 MG TABLET PO ONE (11:20)
[2016-09-21 12:02] VITALS: TEMP 98.2
--- NOTE | 2016-09-21 12:19 | DCSUMMARY ---
Hospitalization Summary Admit Date: 09/19/16 Discharge Date: 09/21/16 Primary Diagnosis:: aspiration pneumonia. Secondary Diagnosis:: Dysphagia, chronic Hospital Course: This very pleasant 80-year-old female with known dysphagia who presented with fever and cough and worsening right lower lobe infiltrate as well as a left lower lobe infiltrate on CT scan. The patient was admitted for treatment of an aspiration pneumonia. She was placed on clindamycin and Rocephin and has improved through the hospital stay. She still has a cough, but overall has improved. We did some studies to look at delayed gastric emptying and they were normal studies with normal gastric emptying. I suspect she has reflux despite negative EGD given her tube feeding. We placed her on Prevacid which seems to have helped. I discussed with infectious diseases and we felt like if the patient has reliable resources to help her if she has a fever outpatient she could probably start a course of antibiotics for resumed aspiration pneumonia and I have written antibiotics for one round of this outside hospital to try and save the patient hospital days. I discussed this thoroughly with the patient and her daughter. Her daughter will help manage this aspect of care. Patient would like to repeat chest x-ray to see if the pneumonia has cleared in the next 8 weeks and I think is very reasonable. Thus far, she has responded to therapy so I don't suspect that there is an underlying cancer, but should she not respond to appropriate therapy for aspiration pneumonia in the future, bronchoscopy could be considered to look for potential tumor and I do not think it's indicated at this time given drastic improvement in clinical condition. The patient's blood pressures were in a very good and sometimes low normal range , so we've asked her to cut her Norvasc back to 5 mg daily and review with Dr. Tello in the clinic. Today, no completes of chest pain or shortness breath. Cough is nonproductive. No nausea or vomiting. Patient would like to go home. Assessment and Plan: 1. As per discharge assessments noted 2. Disposition: Patient is discharged home. 3. Condition on discharge, stable and improved. 4. Diet: Nothing by mouth. Patient is instructed that she can eat if she would like but she is likely to aspirate. Continue tube feeding with Jevity 1.5, and free water flushes.. 5. Activities: resume normal activities 6. Follow-Up: 1. Dr. Tello later this next week 2. 7. Medications at the Time of Discharge: Home Medications Medication Instructions Recorded Confirmed Type Gabapentin 1 cap PO TID #90 cap 09/26/14 09/19/16 Clinic busPIRone HCL [Buspirone HCl] 5 mg PO BID #60 tablet 12/15/14 09/19/16 Rx Fluticasone Nasal [place] 0.05% 2 spray INH BEDTIME PRN 11/05/15 09/19/16 History [Flonase Nasal [place] 0.05%] Docusate Sodium [Colace] 100 mg PEG BID PRN #100 ml 11/10/15 09/19/16 Rx Melatonin/Pyridoxine [Melatonin 3 1 tab PO QD #30 tab 04/29/16 09/19/16 Clinic mg Tablet] Duloxetine HCl [Cymbalta] 1 cap PO BID #180 cap 07/02/16 09/19/16 Clinic Psyllium Husk (with Sugar) 1 unit PO DAILY 07/30/16 09/19/16 History [Metamucil Powder] Amlodipine Besylate 5 mg PO DAILY #90 tab 09/21/16 09/19/16 Rx Cefuroxime Axetil [Ceftin] 500 mg PO BID #10 tab 09/21/16 Rx Clindamycin HCl [Cleocin HCl] 300 mg PO TID #30 cap 09/21/16 Rx Lansoprazole [Prevacid] 30 mg PO DAILY #30 suspdr.rec 09/21/16 Rx 8. Time, care, counseling and coordination of care for this discharge is greater than 30 minutes. Exam - Vitals Vital Signs: Vital Signs Vital Signs - Last Taken Temperature 98.2 F 09/21/16 12:00 Pulse Rate 67 09/21/16 12:00 Respiratory Rate 16 09/21/16 12:00 Blood Pressure 86/57 09/21/16 12:00 Pulse Ox 94 09/21/16 12:00 Weight 122 lb 6.4 oz - General General Appearance: POSITIVE: No Acute Distress, Cooperative - Head Head Exam: POSITIVE: Normal Inspection, Normocephalic, Atraumatic - Eye Eye Exam: POSITIVE: No Scleral Icterus - Respiratory Respiratory Exam: POSITIVE: Breathing Non Labored, Coarse Breath Sounds (Right lower base.) - Cardiovascular Cardiovascular Exam: POSITIVE: RRR, No Murmur, No Clicks, No Gallops, No Rubs, No JVD - GI/Abdominal GI/Abdominal Exam: POSITIVE: Normal Bowel Sounds, Non Tender, Non Distended, Soft - Extremities Extremities Exam: POSITIVE: No Clubbing Present, No Edema Present, No Cyanosis Present - Neurological Neurological Exam: POSITIVE: Alert, Oriented x 3, No Facial Droop, Speech Intact / Clear, Moves All Extremities Equally Data Perinent Studies: Laboratory Results 09/19/16 09/19/16 09/20/16 Range/Units 15:59 16:15 04:24 WBC 13.69 H 11.24 H (4.8-10.8) 10^3/uL RBC 4.18 L 4.08 L (4.20-5.40) 10^6/uL Hgb 12.4 12.2 (12.0-16.0) g/dL Hct 38.1 37.0 (37.0-47.0) % MCV 91.1 90.7 (81-99) FL MCH 29.7 29.9 (27-31) PG MCHC 32.5 L 33.0 (33-37) g/dL RDW Std Deviation 46.2 45.3 (39-50) fL RDW Coeff of Reid 14.2 14.0 (11.5-14.5) % Plt Count 251 233 (140-350) 10*3/uL MPV 11.2 11.9 (7.4-12.2) FL Immature Gran % (Auto) 0.2 0.3 (0-5) % Neut % (Auto) 69.5 70.7 (50-80) % Lymph % (Auto) 23.6 20.6 (10-50) % [place] % (Auto) 6.4 8.0 (5-15) % Eos % (Auto) 0.1 0.1 (0-8) % Baso % (Auto) 0.2 0.3 (0-1) % Immature Gran # (Auto) 0.03 0.03 10*3/UL Neut # (Auto) 9.50 7.96 10*3/UL Lymph # (Auto) 3.23 2.31 10*3/uL [place] # (Auto) 0.88 H 0.90 H (0.3-0.8) 10*3/UL Eos # (Auto) 0.02 0.01 10*3/UL Baso # (Auto) 0.03 0.03 10*3/UL WBC Morphology Comment Normal morphology Normal morphology (NORM) Plt Morphology Comment Normal morphology Normal morphology (NORM) RBC Morph Comment Normal morphology Normal morphology (NORM) ESR 28 H (0-20) MM/HR D-Dimer 1.51 H (0.00-0.59) mg/L VBG pH 7.47 H (7.32-7.42) VBG pCO2 32 L (45-55) mmHg VBG HCO3 23 (22-26) mmol/L VBG Base Excess 0 (-2-2) MMOL/L Sodium 135 137 (135-145) meq/L Potassium 4.1 4.6 (3.8-5.2) meq/L Chloride 100 112 (98-112) meq/L Carbon Dioxide 24 24 (23-33) meq/L Anion Gap 11 1 L (5-20) BUN 20 16 (7-22) mg/dL Creatinine 0.6 0.6 (0.50-1.20) mg/dL Estimated GFR (>60 ml/min/1.73m(2)) BUN/Creatinine Ratio 33.33 H 26.66 H (6-20) Glucose 130 H 84 (78-110) mg/dL Calculated Osmolality 284.0 283.0 (267-292) mOsm/kg Lactic Acid 1.0 (0.70-2.10) MMOL/L Calcium 9.2 8.9 (8.7-10.7) mg/dL Phosphorus 3.6 (2.4-4.3) mg/dl Total Bilirubin 0.7 (0.3-1.2) mg/dL AST 27 (8-39) IU/L ALT 28 (9-52) IU/L Alkaline Phosphatase 54 (38-126) IU/L Troponin I < 0.012 (< 0.040) ng/mL C-Reactive Protein 4.1 H (0.0-0.9) mg/dL NT-Pro-B Natriuret Pep 218 (0-450) PG/ML Total Protein 7.4 (6.1-8.0) g/dL Albumin 4.0 (3.5-4.8) g/dL Globulin 3.4 (2.50-4.10) g/dL Albumin/Globulin Ratio 1.10 L (1.3-2.0) mg/g Procedures: Delayed gastric imaging study was negative for delayed gastric emptying. Swallow evaluation shows continued dysphasia. The patient is a silent aspirator. She has to swallow 5 times to clear, side don't think anything by mouth makes any sense. Patient Problems - Patient Problem List (1) Aspiration pneumonia Current Visit: Yes Status: Acute Qualifiers: Aspiration pneumonia type: due to regurgitated food Laterality: right Lung location: lower lobe of lung Qualified Description: Aspiration pneumonia of right lower lobe due to regurgitated food Qualifier Code(s): (J69.0) Pneumonitis due to inhalation of food and vomit (2) Dysphagia Current Visit: Yes Status: Chronic Qualifiers: Dysphagia type: other dysphagia Qualified Description: Other dysphagia Qualifier Code(s): (R13.19) Other dysphagia (3) Hypertension Current Visit: Yes Status: Chronic Qualifiers: Hypertension type: essential hypertension Qualified Description: Essential hypertension Qualifier Code(s): (I10) Essential (primary) hypertension (4) Peripheral neuropathy Current Visit: Yes Status: Chronic Qualifiers: Peripheral neuropathy type: idiopathic neuropathy, unspecified Qualified Description: Idiopathic peripheral neuropathy Qualifier Code(s) : (G60.9) Hereditary and idiopathic neuropathy, unspecified (5) S/P percutaneous endoscopic gastrostomy (PEG) tube placement Current Visit: Yes Status: Chronic (6) Anxiety Current Visit: Yes Status: Chronic (7) Obstructive sleep apnea Current Visit: Yes Status: Acute
[2016-09-21] MEDS ORDERED: CLINDAMYCIN 150 MG CAPSULE PO SCH (15:00)
[2016-09-21] MEDS ORDERED: CEFUROXIME 500 MG TABLET PO SCH (21:00)
--- NOTE | 2016-09-23 14:44 | PTI REPORT ---
Thank you for the referral of Kellie Bello. She was seen on 09/20/16 for an inpatient evaluation secondary to weakness and pneumonia. SUBJECTIVE: The patient is a 80-year-old female. The patient reports that she lives at home with her . She is the primary caregiver as her has Alzheimer's. The patient reports that she has had pneumonia multiple times. The patient's balance isn't very good; she has a four wheeled walker at home but walks with a single point cane. The patient has been receiving therapy for her neck and strengthening. Nursing okayed treatment prior to today's session. PAST MEDICAL HISTORY: Past medical history can be found in the patient's medical record. OBJECTIVE FINDINGS: General observations: The patient was seen supine in bed. Vitals: Oxygen saturation ranged from 85-95%, depending on types of activities we were doing. At rest it was 93%. Bed mobility: The patient was independent with bed mobility. Ambulation: The patient requires min to mod assist x1 for gait with hand hold assistance and single point cane. The patient was very unsteady and demonstrated sway back gait pattern. The patient may benefit from walker; she was educated on the importance of four wheeled walker, but the patient is happy with her cane at this time. The patient states she reaches for furniture to stay balanced. Balance: The patient's balance is poor. Strength: The patient's strength is 3/5 grossly in bilateral lower extremities. Endurance: The patient's endurance is fair to poor. ASSESSMENT: The patient is a 80-year-old female that presents with generalized weakness and decreased mobility. The patient's balance is poor. The patient would benefit from therapy to improve strength and balance in order to return home safely and reduce risk for falls. The patient's prognosis for therapy is fair. Problem List: Decreased strength Decreased balance Decreased functional mobility Short-Term Goals: To be met by discharge from inpatient: Patient will be independent with all transfers. Patient will be able to ambulate 300 feet with least restrictive assistive device independently. Patient will be able to tolerate 15 minutes of continuous activity. Long-Term Goals: To be met following discharge from inpatient: Patient will benefit from continued outpatient skilled physical therapy. TREATMENT PLAN: Patient will be seen B.I.D during the week and one time per day over the weekend as an inpatient for therapeutic exercise, functional activity, gait training, neuromuscular reeducation, manual therapy as needed, and modalities as needed. INITIAL TREATMENT: Treatment today consisted of the initial evaluation followed by therapeutic exercise. The patient was instructed to perform 10 sit to stands with contact guard assist x1 for safety. The patient was instructed in seated minute drills x30 seconds each x3 bilaterally. The patient complained of left quad pain and hip pain. The patient was instructed in seated marches x20, seated long arc quads x20, and isometric resisted trunk strengthening with moderate perturbations x30 seconds x2. The patient was returned to her chair following treatment today with chair alarm activated and call light within reach. EMILY
--- NOTE | 2016-09-23 15:02 | PT AM DAY ---
Diagnosis : Weakness/Pneumonia AM - Physical Therapy S: The patient reports she is still on her feeding tube and is not eating or drinking anything. They tried to get her on thickened liquids, but she was unable to pass the test. The patient states she is very tired and out of breath. O: The patient performed 10 sit to stand transfers and ambulated around the nurse's station x3. The patient performed toileting followed by hygiene and ADLs at the sink including washing her hands, brushing her teeth, combing her hair, etc. working on standing balance. A: At this time the patient is very off balance. She is a safety risk for falling due to weakness. The patient did misstep several times during ambulation and she did need contact guard assist during all of her functional ADLs at the sink. P: Continue seeing patient BID during the week and one time per day over the weekend for transfers, ambulation, and range of motion/strengthening exercises. MTDD
--- NOTE | 2016-09-26 14:30 | DI ---
History: Dysphasia and aspiration Technique: 1.2 mCi of sulfur coli suspended in hilar could protein. Findings: Images were taken through 85-90 minutes. Gastric emptying calculated at 37%. T half is 77 minutes. Impression: At 90 minutes, > 35% emptying is normal. For gastric emptying T 1/2, the normal range for liquids is 10-45 minutes. The normal range for solids is 60-105 minutes.
== END 2016-09-21 15:48 | disposition home or self-care (01) | DRG 179 ==
LOC: ER 15:13 → MED/SURG 19:45
PROVIDERS: ADMIT Family Medicine; ATTEND Family Medicine
DX: J18.9 Pneumonia, unspecified organism (principal); J69.0 Pneumonitis due to inhalation of food and vomit; R13.10 Dysphagia, unspecified; I10 Essential (primary) hypertension; G62.9 Polyneuropathy, unspecified; F41.9 Anxiety disorder, unspecified; G47.33 Obstructive sleep apnea (adult) (pediatric)
CPT/HCPCS: 36415; 71020; 71275; 80053; 82803; 83605; 83880; 84484; 85025; 85379; 86140; 87040; 94640; 99284 ×2; J7620; 74220; 78264; 80048; 84100; 85652; 90670; 94761; 97110; 97161; 97530; 97750; J0696; J1335; J1650; J3490; J7030; J7050

== ENCOUNTER → 2016-09-30 | Outpatient (CLI) | payer OTHER, BC | LOC: MMPC 11:11 | DX: J69.0 Pneumonitis due to inhalation of food and vomit (principal); K21.9 Gastro-esophageal reflux disease without esophagitis; G47.30 Sleep apnea, unspecified; I10 Essential (primary) hypertension; F41.9 Anxiety disorder, unspecified; M16.12 Unilateral primary osteoarthritis, left hip; R53.81 Other malaise; M54.5 Low back pain | CPT/HCPCS: 99213; G0463 ==

== ENCOUNTER → 2016-11-02 | Outpatient (CLI) | payer OTHER, BC | LOC: MMPC 09:00 | DX: R19.7 Diarrhea, unspecified (principal); K58.9 Irritable bowel syndrome, unspecified; K31.84 Gastroparesis; K21.9 Gastro-esophageal reflux disease without esophagitis ==

== ENCOUNTER → 2016-11-05 | Outpatient (CLI) | payer OTHER, BC | LOC: LAB 15:43 | DX: R19.7 Diarrhea, unspecified (principal); K21.9 Gastro-esophageal reflux disease without esophagitis; K31.84 Gastroparesis; G47.30 Sleep apnea, unspecified; I10 Essential (primary) hypertension; J69.0 Pneumonitis due to inhalation of food and vomit; F41.9 Anxiety disorder, unspecified | CPT/HCPCS: 87493 ==

== ENCOUNTER → 2016-11-25 | Outpatient (CLI) | payer OTHER, BC | LOC: LAB 11:18 | DX: R19.7 Diarrhea, unspecified (principal) | CPT/HCPCS: 87493 ==

== ENCOUNTER 2016-11-26 17:15 | Emergency (ER) | payer OTHER, BC ==
[2016-11-26] MEDS ORDERED: Sodium Chloride 0.9% 1,000 ML PRIMARY IV ONE (17:44)
--- NOTE | 2016-11-26 17:47 | PDOC ---
Nausea/Vomiting/Diarrhea HPI - General Chief Complaint: Nausea / Vomiting / Diarrhea Stated Complaint: Diarrhea / C-Diff / Weakness Date Seen by Provider: 11/26/16 Time Seen by Provider: 17:44 Source: POSITIVE: Patient, Other (Daughter) Nurse's Notes Reviewed & Considered: Yes - History of Present Illness Initial Comments: Dipti is a 80-year-old female who presents to the emergency department for evaluation of possible dehydration. Patient was admitted earlier in the year for aspiration pneumonia. She was treated with antibiotics at that time. Subsequently she developed Clostridium difficile diarrhea patient has completed 1 course of Flagyl. She retested her stool given persistent diarrhea which is still positive. A second course of Flagyl has been ordered. She has not had increase in fluid amount through her G-tube since her diarrhea. She reports her mouth is very dry. She gets occasional abdominal cramping. Worse with diarrhea. No relieving factors. Mild and overall severity. No fevers. Her cough and pneumonia seem to have improved. - Patient Home Medications Home Medications: Home Medications Gabapentin 1 cap PO TID #90 cap 09/26/14 busPIRone HCL [Buspirone HCl] 5 mg PO BID #60 tablet 12/15/14 Fluticasone Nasal [place] 0.05% [Flonase Nasal [place] 0.05%] 2 spray INH BEDTIME PRN 11/05/15 Duloxetine HCl [Cymbalta] 1 cap PO BID #180 cap 07/02/16 Amlodipine Besylate 5 mg PO DAILY #90 tab 09/21/16 Lansoprazole [Prevacid] 30 mg PO DAILY #30 suspdr.rec 09/21/16 Metronidazole 1 tab PO TID #42 tab 11/25/16 - Patient Allergies Allergies/Adverse Reactions: Allergies Allergy/AdvReac Type Severity Reaction Status Date / Time Penicillins Allergy Intermediate HIVES Verified 11/26/16 19:01 Past Medical History - heen HEENT History: Denies History, Hard of Hearing Additional HEENT History: Bilateral Hearing aids. usually only wears left Cardiovascular History: Hypertension Respiratory History: Pneumonia, Home CPAP Use Additional Respiratory History: Home CPAP with oxygen at night. No oxygen during day. PNEUMONIA X 4 (LAST 04/2016). SILENT ASPIRATIONS/ PEG TUBE PLACEMENT 07/26 Gastrointestinal History: GERD, Irritable Bowel Syndrome Additional Gastrointestinal History: GASTROPARESIS Genitourinary History: Denies History Endocrine History: Denies History Musculoskeletal History: Arthritis Prosthesis or Implant: Yes (Left hip) Additional Musculoskeletal History: Had Left hip surgery November 2014 Neurological History: Meningitis Additional Neurological History: NEUROPATHY. Anxiety. PT's daughter states that patient does not have Alzheimer's or Dementia. MENINGITIS CAUSED NEUROPATHY Blood Disorders: Denies History Psychiatric History: Anxiety Disorders Additional Psychiatric History: anxiety History of Sexually Transmitted Diseases: No Cancer History: Denies History History of MDRO: No Other Type of MDRO: bacterial menigitis Jan 2014 History of Other Communicable Diseases: No Alcohol Use: None Substance Use Type: None Previous Surgical History: Yes Type / Date of Surgery: LEFT FOOT SX FEEDING TUBE/SOPHIE/TONSILLECTOMY/ HYSTERECTOMY, APPENDECTOMY, Left hip surgery, REMOVAL OF PANCREATIC STONE Anesthesia Reactions: No Malignant Hyperthermia: No Significant Family History: No pertinent family hx Past Medical History Reviewed: Reviewed - No Changes ROS - Limitations ROS Limitations: No Limitations Constitution: REPORTS: Denies Symptoms. DENIES: Chills, Fever Cardiovascular: REPORTS: Denies Cardiac Symptoms Respiratory: REPORTS: Denies Resp Symptoms Neurological: REPORTS: Denies Neuro Symptoms Gastrointestinal: REPORTS: Diarrhea Musculoskeletal: REPORTS: Denies MS Symptoms Genitourinary: REPORTS: Denies Symptoms Eyes: REPORTS: Denies Symptoms ENT: REPORTS: Other (Dry mouth) Skin: DENIES: Rash Nausea/Vomiting/Diarrhea Exam - General Appearance General Appearance: POSITIVE: Alert, Cooperative, No Acute Distress, No Evidence of Trauma - HEENT HEENT: POSITIVE: Head Inspection Nml, Dry Mucous Membranes - Neck Neck: POSITIVE: Supple - Respiratory Respiratory: POSITIVE: Other (Somewhat coarse without wheezes) - Cardiovascular Cardiovascular: POSITIVE: Regular Rate and Rhythm - Abdomen Abdomen: Soft: (All Quadrants), Normal Bowel Sounds: (All Quadrants), Denies Tenderness: (All Quadrants), No Guarding: (All Quadrants), No Rebound: (All Quadrants) Additional Abdominal Details: G-tube intact without erythema, drainage, discharge. - Skin Skin: POSITIVE: Warm, Dry - Neurological / Psychological Neurological: POSITIVE: Affect Apporpriate N/V/D Progress - Results Reviewed by me Lab Results:: Laboratory Results 11/26/16 Range/Units 18:46 WBC 10.86 H (4.8-10.8) 10^3/uL RBC 4.01 L (4.20-5.40) 10^6/uL Hgb 12.3 (12.0-16.0) g/dL Hct 37.1 (37.0-47.0) % MCV 92.5 (81-99) FL MCH 30.7 (27-31) PG MCHC 33.2 (33-37) g/dL RDW Std Deviation 48.0 (39-50) fL RDW Coeff of [place] 14.5 (11.5-14.5) % Plt Count 297 (140-350) 10*3/uL MPV 10.6 (7.4-12.2) FL Immature Gran % (Auto) 0.3 (0-5) % Neut % (Auto) 75.1 (50-80) % Lymph % (Auto) 16.5 (10-50) % [place] % (Auto) 7.8 (5-15) % Eos % (Auto) 0 (0-8) % Baso % (Auto) 0.3 (0-1) % Immature Gran # (Auto) 0.03 10*3/UL Neut # (Auto) 8.16 10*3/UL Lymph # (Auto) 1.79 10*3/uL [place] # (Auto) 0.85 H (0.3-0.8) 10*3/UL Eos # (Auto) 0 10*3/UL Baso # (Auto) 0.03 10*3/UL WBC Morphology Comment Normal morphology (NORM) Plt Morphology Comment Normal morphology (NORM) RBC Morph Comment Normal morphology (NORM) Sodium 133 L (135-145) meq/L Potassium 4.0 (3.8-5.2) meq/L Chloride 100 (98-112) meq/L Carbon Dioxide 25 (23-33) meq/L Anion Gap 8 (5-20) BUN 18 (7-22) mg/dL Creatinine 0.6 (0.50-1.20) mg/dL Estimated GFR (>60 ml/min/1.73m(2)) BUN/Creatinine Ratio 30.00 H (6-20) Glucose 95 (78-110) mg/dL Calculated Osmolality 277.0 (267-292) mOsm/kg Calcium 8.8 (8.7-10.7) mg/dL Magnesium 1.7 (1.6-2.4) mg/dL - Patient's Progress MDM / ED Course: Patient is a 80-year-old female who presents to the emergency department with dehydration. Her vital signs are unremarkable and examination demonstrates well -appearing elderly female with signs of dehydration. Patient's laboratory studies demonstrated a mild decrease in her sodium. Otherwise were unremarkable. I suspect that her dehydration is due to her diarrhea without increase in her free water intake from her tube feed. I will have her increase her free water intake and recheck with the dietitian to ensure adequate fluid administration during the illness. has also seen infectious disease in the past with continued C. difficile she will follow up with her infectious disease provider and continue metronidazole for now. Patient Care Time - Estimated PCT Patient Care Time (In Minutes): 35 Vital Signs - Recent Vital Signs Vital Signs: Vital Signs (Last 8 hours) Temp Pulse Resp BP Pulse Ox 11/26/16 17:25 98.4 F 82 18 136/66 91 - VS Reviewed Vital Signs Reviewed: Yes Discharge Clinical Impression: Dehydration Discharge Disposition: Discharged to Home Condition: Good Patient Instructions Given at Discharge: Dehydration (ED) Additional Instructions: Thank you for coming to the emergency department. You have appear to be dehydrated from your infection. Please increase your fluid intake from your G- tube by 250 mL [place] and recheck with your dietitian to ensure adequate fluid intake. Please consider following up with your infectious disease provider for continued evaluation of your Clostridium difficile infection. Return to the emergency department for any worsening symptoms.
[2016-11-26 18:51] LABS: BASOPHILS # (AUTO) 0.03 10*3/UL; BASOPHILS % (AUTO) 0.3 % (0-1); EOSINOPHILS # (AUTO) 0 10*3/UL; EOSINOPHILS % (AUTO) 0 % (0-8); HEMATOCRIT 37.1 % (37.0-47.0); HEMOGLOBIN 12.3 g/dL (12.0-16.0); LYMPHOCYTES # (AUTO) 1.79 10*3/uL; MEAN CORPUSCULAR HEMOGLOBIN 30.7 PG (27-31); MEAN CORPUSCULAR HGB CONC 33.2 g/dL (33-37); MEAN CORPUSCULAR VOLUME 92.5 FL (81-99); MEAN PLATELET VOLUME 10.6 FL (7.4-12.2); MONOCYTES # (AUTO) 0.85 10*3/UL (0.3-0.8); MONOCYTES % (AUTO) 7.8 % (5-15); NEUTROPHILS # (AUTO) 8.16 10*3/UL; NEUTROPHILS % (AUTO) 75.1 % (50-80); PLATELET MORPHOLOGY COMMENT NORMAL MORPHOLOGY (NORM); RBC MORPHOLOGY COMMENT NORMAL MORPHOLOGY (NORM); RED BLOOD COUNT 4.01 10^6/uL (4.20-5.40); WBC MORPHOLOGY COMMENT NORMAL MORPHOLOGY (NORM)
[2016-11-26 18:59] VITALS: RESP 18; TEMP 98.4
[2016-11-26 18:59] LABS: CALCIUM 8.8 mg/dL (8.7-10.7); MAGNESIUM 1.7 mg/dL (1.6-2.4)
== END 2016-11-26 19:52 | disposition home or self-care (01) ==
LOC: ER 17:15
DX: E86.0 Dehydration (principal); A04.7 Enterocolitis due to Clostridium difficile; R53.1 Weakness; I10 Essential (primary) hypertension
CPT/HCPCS: 36415; 80048; 83735; 85025; 96360; 99283; J7030

== ENCOUNTER → 2016-12-02 | Outpatient (CLI) | payer OTHER, BC | LOC: MMPC 09:00 | PROVIDERS: ATTEND Physician Assistant Medical | DX: A09 Infectious gastroenteritis and colitis, unspecified (principal); R53.1 Weakness | CPT/HCPCS: 99213; G0463 ==

== ENCOUNTER 2017-08-03 15:34 | Inpatient (IN) ==
[2017-08-03] MEDS ORDERED: Sodium Chloride 0.9% 1,000 ML PRIMARY IV ONE (15:52)
[2017-08-03] MEDS ORDERED: Prochlorperazine Edisylate Inj 10mg/2ml vial IVP ONE (15:54)
[2017-08-03] MEDS ORDERED: diphenhydrAMINE 50 MG/1 ML VIAL IVP ONE (15:54)
[2017-08-03] MEDS ORDERED: KETOROLAC 15 MG/1 ML VIAL IVP ONE (15:54)
[2017-08-03] MEDS ORDERED: Magnesium Sulfate 2gm (Premix) 2 GM/50 ML BAG IV ONE (15:54)
[2017-08-03] MEDS ORDERED: DEXAMETHASONE PF 10 MG/1 ML VIAL IVP ONE (15:54)
--- NOTE | 2017-08-03 15:56 | PDOC ---
Neuro Symptoms / Deficit HPI - General Chief Complaint: Neurological Complaints Stated Complaint: headache Date Seen by Provider: 08/03/17 Time Seen by Provider: 15:50 Source: POSITIVE: Patient, Other (Grandson) Exam Limitations: POSITIVE: Clinical condition Nurse's Notes Reviewed & Considered: Yes - History of Present Illness Initial Comments: This is a well-developed, well-nourished, confused, 81-year-old female complaining of headache. Patient was brought in by her grandson with complaints of headache that has been ongoing today. In addition patient is confused. Her confusion has been ongoing for approximately a week. He is presently on unknown antibiotics for urinary tract infection. She does have a history of C. difficile infection 1 year ago. Patient states she has a dry mouth and mild sore throat, no chest pain or shortness of breath, no cough, no nausea vomiting or diarrhea, she denies hematuria or dysuria, no rashes. Patient states she is confused and having difficulty remembering things. 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 Body Location Affected: REPORTS: Head Timing: REPORTS: Constant Duration: <24 hours Severity: Moderate Quality: REPORTS: "Pain", Stabbing, Throbbing Context: DENIES: Insect Bite, Tick Bite, Falling Injury, Head Injury, Other Character of Deficit(s): REPORTS: General(diffuse) Associated Symptoms: REPORTS: Headache, Altered Mental Status, Confused, Trouble Concentrating Usual Ability to Walk/Stand: REPORTS: Walks w/o Assistance Usual Cognition: REPORTS: Alert but Confused Similar Symptoms Previously: No Recently seen/treated/hospitalized: Yes Any Prior Injuries Related to Current Complaint?: No - Patient Home Medications Home Medications: Home Medications Gabapentin 1 cap PO TID #90 cap 09/26/14 Fluticasone Nasal [place] 0.05% [Flonase Nasal [place] 0.05%] 2 spray INH BEDTIME PRN 11/05/15 amlodipine 10 mg tablet 5 mg PO DAILY #90 tab 01/16/17 duloxetine 60 mg capsule,delayed release 60 mg PO BID #180 cap 01/17/17 lactobacillus combination no.8 3 billion cell capsule 3,000 mmu cells PO QDAY loratadine 10 mg tablet 10 mg PO QDAY PRN #30 tab 03/05/17 nut.tx impaired digestive fxn-fiber 0.08 gram-1.2 kcal/mL oral liquid See Label Instructions .ROUTE .COMPLEX #6 units 06/06/17 Lansoprazole [Prevacid] 30 mg PO DAILY #30 suspdr.rec 07/07/17 buspirone 5 mg tablet 10 mg PO BID #60 tab 07/29/17 metronidazole 500 mg tablet 500 mg PO BID #10 tab 07/31/17 nitrofurantoin monohydrate/macrocrystals 100 mg capsule 1 cap PO Q12H 5 Days # 10 cap 07/31/17 - Patient Allergies Allergies/Adverse Reactions: Allergies 3 Allergy/AdvReac Type Severity Reaction Status Date / Time Penicillins Allergy Intermediate HIVES Verified 08/03/17 17:02 Past Medical History - heen HEENT History: Denies History, Hard of Hearing Additional HEENT History: Bilateral Hearing aids. usually only wears left Cardiovascular History: Hypertension Respiratory History: Pneumonia, Home CPAP Use Additional Respiratory History: Home CPAP with oxygen at night. No oxygen during day. PNEUMONIA X 4 (LAST 04/2016). SILENT ASPIRATIONS/ PEG TUBE PLACEMENT 07/26 Gastrointestinal History: GERD, Irritable Bowel Syndrome Additional Gastrointestinal History: GASTROPARESIS Genitourinary History: Denies History Endocrine History: Denies History Musculoskeletal History: Arthritis Prosthesis or Implant: Yes (Left hip) Additional Musculoskeletal History: Had Left hip surgery November 2014 Neurological History: Meningitis Additional Neurological History: NEUROPATHY. Anxiety. PT's daughter states that patient does not have Alzheimer's or Dementia. MENINGITIS CAUSED NEUROPATHY Blood Disorders: Denies History Psychiatric History: Anxiety Disorders Additional Psychiatric History: anxiety History of Sexually Transmitted Diseases: No Cancer History: Denies History History of MDRO: No Other Type of MDRO: bacterial menigitis Jan 2014 History of Other Communicable Diseases: No Alcohol Use: None In the Past 12 Months, Have Used or Abuse Any Substance: None Previous Surgical History: Yes Type / Date of Surgery: LEFT FOOT S FEEDING TUBE/SOPHIE/TONSILLECTOMY/ HYSTERECTOMY, APPENDECTOMY, Left hip surgery, REMOVAL OF PANCREATIC STONE Anesthesia Reactions: No Malignant Hyperthermia: No Significant Family History: No pertinent family hx ROS - Limitations ROS Limitations: Clinical Condition Constitution: REPORTS: Denies Symptoms Cardiovascular: REPORTS: Denies Cardiac Symptoms Respiratory: REPORTS: Denies Resp Symptoms Neurological: REPORTS: Confusion, Headache Gastrointestinal: REPORTS: Denies GI Symptoms Endocrine: REPORTS: Denies Symptoms Musculoskeletal: REPORTS: Denies MS Symptoms Genitourinary: REPORTS: Denies Symptoms Eyes: REPORTS: Denies Symptoms ENT: REPORTS: Denies Symptoms Skin: REPORTS: Denies Skin Symptoms Lympathic: REPORTS: Denies Lympathic Symptoms Immunologic: POSITIVE: Denies Symptoms Psychiatric: POSITIVE: Confusion Neuro Symptoms / Deficit Exam - General Appearance General Appearance: POSITIVE: No Acute Distress - HEENT HEENT: POSITIVE: Head Inspection Nml, Eyes Inspection Nml, Ears Inspection Nml, Nose Inspection Nml, Oral/Dental Inspect. Nml, Pharynx Inspect. Nml, PERRL, EOMI - Pupil Size Pupil Size: 3 mm: Bilateral - Neuro / Psych Higher Functions: POSITIVE: Oriented to Person, Oriented to Place, Depressed Mood Cranial Nerves: POSITIVE: Normal As Tested, No Evidence of Acute CVA Cerebellar: POSITIVE: Normal As Tested Peripheral Exam: POSITIVE: Sensation Normal, Motor Normal, Reflexes Normal Reflexes: Patellar (R): 4+, Patellar (L): 4+, Radial (R): 4+, Radial (L): 4+ - Neck Neck: POSITIVE: Supple, Non-Tender - Respiratory Respiratory: POSITIVE: No Respiratory Distress, Breath Sounds Normal - Cardiovascular Cardiovascular: POSITIVE: Regular Rate & Rhythm, Heart Sounds Normal Peripheral Pulses: Radial (R): 4+, Dorsalis-pedis (R): 4+, Dorsalis-pedis (L): 4 + - Abdomen Abdomen: Soft: (All Quadrants), Normal Bowel Sounds: (All Quadrants), Denies Tenderness: (All Quadrants), No Splenomegaly: (All Quadrants), No Hepatomegaly: (All Quadrants), No Guarding: (All Quadrants), No Rebound: (All Quadrants), No Palpable Pulse: (All Quadrants), No Palpabale Mass: (All Quadrants), No Distention: (All Quadrants), No Rigidity: (All Quadrants) - Skin Skin: POSITIVE: Intact, Normal For Race, Warm, Dry, No Rash - Extremities Extremity: Non-Tender: (All Extremities), Normal ROM: (All Extremities), Normal Inspection: (All Extremities), Pelvis Stable: (All Extremities) Neuro Symptom/Deficit Progress - Results Reviewed by me Xrays/CTs/US Reviewed by me: Yes Discussed with Radiologist: Yes Lab Results Reviewed by Me: Yes CBC and BMP: 08/03/17 16:15 08/03/17 16:15 - Patient's Progress Re-Examine Time:: 17:18 Status: POSITIVE: Improved MDM / ED Course: Patient was evaluated, an IV started, blood drawn and sent to the lab for studies, radiographic examination was obtained. Findings: CBC is unremarkable. Comprehensive metabolic panel shows hyponatremia with a sodium of 128. Urinalysis is positive for bacteria culture is pending. CT scan of her head shows no acute intracranial abnormalities. Assessment: #1 altered mental status with underlying etiology potentially related to hyponatremia versus urinary tract infection. #2 hyponatremia. #3 urinary tract infection. Plan: IV Rocephin, admission, normal saline at 125 mL per hour. Antibiotics Given: Yes CAP: POSITIVE: Antibiotics - Consult Consult (If Yes, Name of Consulting MD & Time Called): Yes (Dr. Ho, 1717 hrs) Consulting MD will see pt:: POSITIVE: [facility] [place] Admit Counseled: POSITIVE: Patient, Family, RE: Lab Results, RE: Radiology Results, RE : DX Patient Care Time - Estimated PCT Patient Care Time (In Minutes): 30 Vital Signs - VS Reviewed Vital Signs Reviewed: Yes Discharge Clinical Impression: UTI (urinary tract infection), Hyponatremia, Altered mental status Discharge Disposition: Admit to Inpatient Condition: Stable Follow Up With: TERRI MARTINES [Primary Care Provider] - Date Decision to Admit to Inpatient: 08/03/17 Time Decision to Admit to Inpatient: 17:21
[2017-08-03 16:26] LABS: BILIRUBIN,URINE NEGATIVE (NEG); CLARITY,URINE CLEAR (CLEAR); COLOR,URINE YELLOW (Y); GLUCOSE, URINE (UA) NEGATIVE (NEG); OCCULT BLOOD,URINE NEGATIVE (NEG); PROTEIN,URINE NEGATIVE (NEG); UROBILINOGEN,URINE 0.2 EU/dL (0.2)
[2017-08-03 16:27] LABS: BASOPHILS # (AUTO) 0.03 10*3/UL; BASOPHILS % (AUTO) 0.4 % (0-1); EOSINOPHILS # (AUTO) 0.05 10*3/UL; EOSINOPHILS % (AUTO) 0.6 % (0-8); Hemoglobin [HGB] 14.1 g/dL (12.0-16.0); LYMPHOCYTES # (AUTO) 1.78 10*3/uL; MEAN CORPUSCULAR HGB CONC 35.3 g/dL (33-37); MEAN CORPUSCULAR VOLUME 90.9 FL (81-99); MEAN PLATELET VOLUME 9.7 FL (7.4-12.2); MONOCYTES # (AUTO) 0.68 10*3/UL (0.3-0.8); MONOCYTES % (AUTO) 8.4 % (5-15); NEUTROPHILS # (AUTO) 5.59 10*3/UL; NEUTROPHILS % (AUTO) 68.6 % (50-80)
[2017-08-03 16:28] LABS: PLATELET MORPHOLOGY COMMENT NORMAL MORPHOLOGY (NORM); RBC MORPHOLOGY COMMENT NORMAL MORPHOLOGY (NORM); WBC MORPHOLOGY COMMENT NORMAL MORPHOLOGY (NORM)
[2017-08-03 16:36] LABS: AMPHETAMINE SCREEN NEGATIVE (NEG); BACTERIA,URINE FEW; CANNABINOID SCREEN,URINE NEGATIVE (NEG); COCAINE SCREEN NEGATIVE (NEG); METHADONE URINE SCREEN NEGATIVE (NEG); METHAMPHETAMINES SCREEN,URINE NEGATIVE (NEG); OPIATE SCREEN,URINE NEGATIVE (NEG); RENAL EPITHELIAL CELLS,URINE FEW; SQUAMOUS EPITHELIAL CELL,UR FEW; URINE SAMPLE TYPE CLEAN CATCH URINE
[2017-08-03 16:41] LABS: BLOOD UREA NITROGEN 18 mg/dL (7-22); SERUM ALBUMIN 4.6 g/dL (3.5-4.8)
--- NOTE | 2017-08-03 17:14 | DI ---
EXAM: CT Head Without Intravenous Contrast CLINICAL HISTORY: ITS.REASON confusion Physician Notes: Tech Comments: TECHNIQUE: Axial computed tomography images of the head/brain without intravenous contrast. COMPARISON: CT head 04/26/16 FINDINGS: No intracranial hemorrhage, abnormal intra- or extra-axial collections or parenchymal lesions are seen. There are involutional changes with prominence of the sulci, basal cisterns and ventricles. Scattered white matter hypoattenuations are present, likely from small vessel disease. The finn-white differentiation is preserved. No evidence of mass effect, midline shift, or edema. The osseous structures are unremarkable. Small fluid level in left frontal and maxillary sinus may be acute sinusitis. Mild ethmoid and right maxillary sinus mucosal thickening. IMPRESSION: 1. No acute intracranial process. 2. Involutional changes with small vessel disease. 3. Small fluid level in the left maxillary and frontal sinuses may be acute sinusitis.
[2017-08-03] MEDS ORDERED: cefTRIAXone Inj 2 GM in Sodium Chloride 0.9% 100 ML IV ONE (17:17)
[2017-08-03] MEDS ORDERED: LIDOCAINE HCL 2 % 10 ML JELLY URO-JECT TOPICAL PRN (18:50)
[2017-08-03] MEDS ORDERED: FUROSEMIDE 10 MG/1 ML - 4 ML IVP ONE ×2 (18:51→20:22)
--- NOTE | 2017-08-03 18:52 | PDOC ---
HPI - History of Present Illness History of Present Illness: This is a well-developed, well-nourished, confused, 81-year-old female complaining of headache. Patient was brought in by her grandson with complaints of headache that has been ongoing today. In addition patient is confused. Her confusion has been ongoing for approximately a week. He is presently on unknown antibiotics for urinary tract infection. She does have a history of C. difficile infection 1 year ago. Patient states she has a dry mouth and mild sore throat, no chest pain or shortness of breath, no cough, no nausea vomiting or diarrhea, she denies hematuria or dysuria, no rashes. Patient states she is confused and having difficulty remembering things. 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 Past Medical History Medical History: 1. Hypertension. 2. Idiopathic peripheral neuropathy. 3. Anxiety. 4. H. influenzae meningitis in 2013. 5. History of gastroparesis. 6. Obstructive sleep apnea, on CPAP. 7. Loss of weight, adult. 8. Recurrent aspiration pneumonia. Surgical History: 1. Cholecystectomy 2007. 2. Hysterectomy. 3. Degenerative disc disease status post rhizotomy in 2010. 4. Gallstone pancreatitis with cholecysectomy. 5. appendectomy. 6. Tonsillectomy and adenoidectomy. 7. PEG tube placement 2, most recently July 2016 Pertinent Family History: Congestive heart failure both parents Past Social History: Does not smoke. . Has children, grandchildren and 7 great-grandchildren. Does not drink alcohol. The patient's has dementia. The patient lives here in [place], [place]. Tobacco Use: Never Smoker In the Past 12 Months, Have Used or Abuse Any of the Following Substance: None Medication / Allergies Home Medications: Home Medications 3 Medication Instructions Recorded Confirmed Type Gabapentin 1 cap PO TID #90 cap 09/26/14 08/03/17 History Fluticasone Nasal [place] 0.05% 2 spray INH BEDTIME PRN 11/05/15 08/03/17 History [Flonase Nasal [place] 0.05%] amlodipine 10 mg tablet 5 mg PO DAILY #90 tab 01/16/17 08/03/17 Rx duloxetine 60 mg capsule,delayed 60 mg PO BID #180 cap 01/17/17 08/03/17 Rx release lactobacillus combination no.8 3 3,000 mmu cells PO QDAY 03/04/17 08/03/17 History billion cell capsule loratadine 10 mg tablet 10 mg PO QDAY PRN #30 tab 03/05/17 08/03/17 Rx nut.tx impaired digestive See Label Instructions .ROUTE 06/06/17 08/03/17 Rx fxn-fiber 0.08 gram-1.2 kcal/mL .COMPLEX #6 units oral liquid Lansoprazole [Prevacid] 30 mg PO DAILY #30 suspdr.rec 07/07/17 08/03/17 Rx buspirone 5 mg tablet 10 mg PO BID #60 tab 07/29/17 08/03/17 Rx metronidazole 500 mg tablet 500 mg PO BID #10 tab 07/31/17 08/03/17 Rx nitrofurantoin 1 cap PO Q12H 5 Days #10 cap 07/31/17 08/03/17 Rx monohydrate/macrocrystals 100 mg capsule Allergies/Adverse Reactions: Allergies 3 Allergy/AdvReac Type Severity Reaction Status Date / Time Penicillins Allergy Intermediate HIVES Verified 08/03/17 17:02 Results - Labs CBC and BMP: 08/03/17 16:15 08/03/17 16:15
--- NOTE | 2017-08-03 18:54 | PDOC ---
HPI - History of Present Illness History of Present Illness: This very nice 81-year-old female who comes to the ER because over the last week her son says she's been getting weaker sicker some confusion cough and she' s also been treated with a urinary tract infection and she does have urgency. She does have a PEG tube he goes over her aspiration she recently started the BuSpar it was added on by her neurologist and the patient's son noted that this is when her confusion started as chest pain she does know her name at present time we did insert a Amaral catheter and she put out close to 1500 mL she also takes care of her which also has Alzheimer's disease Past Medical History Medical History: 1. Hypertension. 2. Idiopathic peripheral neuropathy. 3. Anxiety. 4. H. influenzae meningitis in 2013. 5. History of gastroparesis. 6. Obstructive sleep apnea, on CPAP. 7. Loss of weight, adult. 8. Recurrent aspiration pneumonia. Surgical History: 1. Cholecystectomy 2007. 2. Hysterectomy. 3. Degenerative disc disease status post rhizotomy in 2010. 4. Gallstone pancreatitis with cholecysectomy. 5. appendectomy. 6. Tonsillectomy and adenoidectomy. 7. PEG tube placement 2, most recently July 2016 Pertinent Family History: Congestive heart failure both parents Past Social History: Does not smoke. . Has children, grandchildren and 7 great-grandchildren. Does not drink alcohol. The patient's has dementia. The patient lives here in [place], [place]. Tobacco Use: Never Smoker In the Past 12 Months, Have Used or Abuse Any of the Following Substance: None Medication / Allergies Home Medications: Home Medications 3 Medication Instructions Recorded Confirmed Type Gabapentin 1 cap PO TID #90 cap 09/26/14 08/03/17 History Fluticasone Nasal [place] 0.05% 2 spray INH BEDTIME PRN 11/05/15 08/03/17 History [Flonase Nasal [place] 0.05%] amlodipine 10 mg tablet 5 mg PO DAILY #90 tab 01/16/17 08/03/17 Rx duloxetine 60 mg capsule,delayed 60 mg PO BID #180 cap 01/17/17 08/03/17 Rx release lactobacillus combination no.8 3 3,000 mmu cells PO QDAY 03/04/17 08/03/17 History billion cell capsule loratadine 10 mg tablet 10 mg PO QDAY PRN #30 tab 03/05/17 08/03/17 Rx nut.tx impaired digestive See Label Instructions .ROUTE 06/06/17 08/03/17 Rx fxn-fiber 0.08 gram-1.2 kcal/mL .COMPLEX #6 units oral liquid Lansoprazole [Prevacid] 30 mg PO DAILY #30 suspdr.rec 07/07/17 08/03/17 Rx buspirone 5 mg tablet 10 mg PO BID #60 tab 07/29/17 08/03/17 Rx metronidazole 500 mg tablet 500 mg PO BID #10 tab 07/31/17 08/03/17 Rx nitrofurantoin 1 cap PO Q12H 5 Days #10 cap 07/31/17 08/03/17 Rx monohydrate/macrocrystals 100 mg capsule Allergies/Adverse Reactions: Allergies 3 Allergy/AdvReac Type Severity Reaction Status Date / Time Penicillins Allergy Intermediate HIVES Verified 08/03/17 17:02 Review of Systems - Review of Systems All Systems: Reviewed & No Additional Complaints Except as Stated - Respiratory Respiratory: REPORTS: Cough - Cardiovascular Cardiovascular: DENIES: Negative System Review, Chest Pain, Edema, Syncope, Palpitations, Orthopnea, Paroxysmal Nocturnal Dyspnea, Other, See HPI - Gastrointestinal Gastrointestinal / Abdominal: DENIES: Negative System Review, Nausea, Vomiting, Diarrhea, Constipation, Abdominal Pain, Bloody Stool, Poor Appetite, Heartburn, Regurgitation, Bloating, Lactose Intolerance, Melena, Bright Red Blood per Rectum, Other, See HPI - Neurological Neurologic: REPORTS: Confusion Exam - General General Appearance: No Acute Distress, Cooperative - Head Head Exam: Normal Inspection, Normocephalic, Atraumatic - Eye Eye Exam: POSITIVE: Normal Appearance, PERRL, EOMI, No Scleral Icterus - Respiratory Respiratory Exam: POSITIVE: Clear to Auscultation - Bilaterally, Decreased Breath Sounds - Cardiovascular Cardiovascular Exam: POSITIVE: RRR, No Murmur, No Clicks, No Gallops, No Rubs, PMI Non-Displaced - GI/Abdominal GI/Abdominal Exam: POSITIVE: Normal Bowel Sounds, Non Tender, Non Distended, Soft, No Masses, No Hepatomegaly, No Splenomegaly, No Organomegaly Additional GI/Abdominal Exam Details: PEG tube - External Exam: POSITIVE: Deferred Exam: POSITIVE: Deferred - Extremities Extremities Exam: POSITIVE: Normal Inspection, Full ROM, Normal Capillary Refill , No Clubbing Present, No Edema Present, No Cyanosis Present, Negative Luis Enrique's sign, Dosalis Pedis Pulses - Stong & Regular Results - Labs CBC and BMP: 08/03/17 16:15 08/03/17 16:15 Assessment and Plan - Patient Problems (1) Altered mental status Current Visit: Yes Status: Acute Code(s): R41.82 - Altered mental status, unspecified (2) Hyponatremia Current Visit: Yes Status: Acute Code(s): E87.1 - Hypo-osmolality and hyponatremia (3) Anxiety Current Visit: No Status: Chronic Onset Date: 06/07/13 Code(s): F41.9 - Anxiety disorder, unspecified - Assessment / Plan Additional Assessment/Plan Details: #1 confusion this definitely could be multifactorial hyponatremia is 128 crit also be from her new medication and dementia and sinus infection #2 hyponatremia most likely a side effect from the Cymbalta and other meds #3 acute sinusitis continue ceftriaxone #4 UTI we'll continue treating with ceftriaxone #5 disposition discussed the case with her son patient and he thinks is unable take care of herself at home or take care of her that the vallecula to proceed with residential placement if possible
[2017-08-03] MEDS ORDERED: LACTOBACILLUS COMBINATION NO 8 PO SCH (19:00)
--- NOTE | 2017-08-03 20:10 | DI ---
EXAM: XR Chest, 2 Views CLINICAL HISTORY: ITS.REASON coughf Physician Notes: Tech Comments: TECHNIQUE: Frontal and lateral views of the chest. COMPARISON: Chest x-ray 09/19/16 FINDINGS: Lungs: Hyperexpanded lungs of COPD. Pleural space: Unremarkable. No pneumothorax. Heart: Unremarkable. No cardiomegaly. Mediastinum: Unremarkable. Bones/joints: Unremarkable. IMPRESSION: 1. Hyperexpanded lungs of COPD. 2. No acute process.
[2017-08-03] MEDS ORDERED: busPIRone HCL 5 MG TABLET PO SCH (21:00)
[2017-08-03] MEDS ORDERED: DULOXETINE 60 MG CAPSULE PO SCH (21:00)
[2017-08-03 21:15] LABS: VENOUS PH 7.45 (7.32-7.42)
[2017-08-03] MEDS ORDERED: LORazepam 2 MG/1 ML VIAL ONE (21:34)
[2017-08-03] MEDS: busPIRone HCL 5 MG TABLET PO SCH (21:57)
[2017-08-03] MEDS ORDERED: LORazepam 2 MG/1 ML VIAL IVP PRN (21:58)
[2017-08-03] MEDS: DULOXETINE 60 MG CAPSULE PO SCH (21:58)
[2017-08-04 05:25] LABS: BASOPHILS # (AUTO) 0 10*3/UL; BASOPHILS % (AUTO) 0 % (0-1); EOSINOPHILS # (AUTO) 0 10*3/UL; EOSINOPHILS % (AUTO) 0 % (0-8); Hemoglobin [HGB] 13.9 g/dL (12.0-16.0); LYMPHOCYTES # (AUTO) 0.94 10*3/uL; MEAN CORPUSCULAR HEMOGLOBIN 31.5 PG (27-31); MEAN CORPUSCULAR HGB CONC 34.8 g/dL (33-37); MEAN CORPUSCULAR VOLUME 90.7 FL (81-99); MEAN PLATELET VOLUME 9.5 FL (7.4-12.2); MONOCYTES # (AUTO) 0.26 10*3/UL (0.3-0.8); NEUTROPHILS # (AUTO) 3.99 10*3/UL; NEUTROPHILS % (AUTO) 76.7 % (50-80); RED BLOOD COUNT 4.41 10^6/uL (4.20-5.40)
[2017-08-04 05:35] LABS: BLOOD UREA NITROGEN 17 mg/dL (7-22); SERUM ALBUMIN 4.2 g/dL (3.5-4.8)
[2017-08-04 05:36] LABS: PLATELET MORPHOLOGY COMMENT NORMAL MORPHOLOGY (NORM); RBC MORPHOLOGY COMMENT NORMAL MORPHOLOGY (NORM); WBC MORPHOLOGY COMMENT NORMAL MORPHOLOGY (NORM)
[2017-08-04] MEDS ORDERED: AmLODIPine Tab 5 MG TABLET PO SCH (09:00)
[2017-08-04] MEDS ORDERED: predniSONE Tab 20 MG TAB PO SCH (09:00)
[2017-08-04] MEDS ORDERED: cefTRIAXone Inj 2 GM in Sodium Chloride 0.9% 100 ML IV SCH (09:00)
[2017-08-04] MEDS ORDERED: ACIDOPHILUS/BULGARICUS CHEWABLE TABLET PO SCH (09:00)
[2017-08-04] MEDS ORDERED: NORMAL SALINE 10 ML SYRINGE FLUSH IVP PRN (09:09)
[2017-08-04] MEDS: busPIRone HCL 5 MG TABLET PO SCH (09:55)
[2017-08-04] MEDS: DULOXETINE 60 MG CAPSULE PO SCH (09:55)
--- NOTE | 2017-08-04 11:23 | OTI REPORT ---
Thank you for the referral of Kellie Bello. She was seen on 08/04/17 for an occupational therapy inpatient evaluation secondary to weakness. SUBJECTIVE: The patient is an 81-year-old female who was brought in secondary to having severe headaches. She did not know that she had a UTI. She has hyponatremia, altered mental status, and anxiety. Prior to admission the patient was living with her in their home. Her son was visiting from [place] as the rest of her family who is usually daily support for her had left for the week. The patient was reporting that there were some medication changes this week and that her son kept filling her PEG tube with water. She was slightly confused and didn't realize what was going on. She also reported that her daughter had locked her other medications in the home so they could not get the medications she thinks she should be taking. The patient does walk with a four wheeled walker. She lives in a one level home and she has typically been pretty independent with most activities within the home. Her bathroom is set up with a shower chair. She has a higher toilet seat with grab bars on the side. Her daughter does check on her daily to make sure that she is taking her medications. Her daughter typically sets up her medications on a weekly basis and helps with driving, grocery shopping, and cleaning. The patient is on a PEG tube, so she does not swallow as she has had several pneumonia aspirations. She has had the PEG tube for a couple of years. PAST MEDICAL HISTORY: Past medical history can be found in the patient's medical record. OBJECTIVE FINDINGS: Range of motion: The patient demonstrated active range of motion of bilateral upper extremities that was within functional limits. Strength: Strength was 4/5 for shoulder flexion, abduction, biceps flexion/ extension, and wrist flexion/extension bilaterally. Bed mobility: The patient was able to come from supine to sit independently. Activities of daily living: While sitting edge of bed she was able to don and doff her socks independently. Transfers: The patient required min assist to come from sit to stand. Ambulation: The patient used her four wheeled walker to ambulate to the bathroom with contact guard to min assist. She did need verbal cues to get down to therapy. Cognition: The patient participated in the mini mental state examination. Her total score was 21/30. She did have difficulty with orientation. She thought the year was 1917. She thought the season was winter. She also had difficulty with counting backward and with visuospatial activities. ASSESSMENT: The patient is demonstrating a mild cognitive impairment. She is getting the proper amount of help through her family; however, her son who typically does not take care of her is here for the week. Per the patient, it sounds like maybe medications are getting mixed up and/or she was getting too much water through her PEG tube. This probably needs to be thoroughly addressed with the son who has been staying here for the week and medication management thoroughly addressed with the family once they return home. Problem List: Generalized weakness Decreased balance Decreased ability to perform functional transfers Short-Term Goals: To be met by discharge from inpatient: Patient will participate in a Cognitive Performance Test. Patient will improve upper extremity strength to 4+/5 to improve her functional transfers and functional abilities. Patient will be able to dress self including set up with good balance. Long-Term Goals: To be met following discharge from inpatient: Patient will be able to return home demonstrating independence with simple ADLs and all functional transfers. TREATMENT PLAN: Patient will be seen B.I.D during the week and one time per day over the weekend as an inpatient to address the above goals and objectives. INITIAL TREATMENT: Treatment today consisted of the initial evaluation followed by the patient performing ADLs while sitting edge of bed. The patient also completed the mini- mental state examination. EMILY
--- NOTE | 2017-08-04 11:51 | DCSUMMARY ---
Hospitalization Summary Hospital Course: Final Discharge Diagnosis: Current Visit Problems Problem Status Onset Code UTI (urinary tract infection) Acute N39.0 Hyponatremia Acute E87.1 Altered mental status Acute R41.82 Urinary retention Diagnostic Data, Laboratory Data, and Procedures of Signifigance: CBC and BMP 08/04/17 05:19 08/04/17 05:19 History and Physical pertinent to Admission: Course of Hospitalization: Is a very nice 81-year-old female who was brought in by her son last evening because the patient felt uncomfortable was a little confused. After my examination the the patient and had some sinus pressure on the left maxillary sinus also she had some urinary and frequency and decided to put in a Amaral which she got 1500 mL out. After that she felt back to her normal self was given ceftriaxone in the ER and one more dose this morning to finish treating the UTI and the sinus infection she does have a history of C. difficile she was on Flagyl and Macrobid for a whole week according to the daughter Daisy Galarza had discussed the case with infectious disease which showed recommended the Flagyl with Macrobid preemptively. We will stop all antibiotics she has no more sinus pressure and we took out the Amaral patient is back to her normal self. 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 Gipson her neurologist that had started these medications and he recommended and I agree to cut the dose in half to 30 mg and have a follow-up in their office to may be revised her medication plan also we will only give her the some the gabapentin and night since that she is comfortable and the reason why she was taken this was for neck pain and headaches which she does not have any more when she got her meningitis of many years ago. The granddaughter which is the manipulative therapy specialist is in the room with the occupational therapist and social media content manager she will be in charge her given her medications I discussed with her her medications clearly 2 prescriptions were called in for Cymbalta 30 mg and tendon just at night via PEG tube also she should not take Benadryl which confuses her I believe. All in agreement patient will be discharged home in stable and improved condition her follow-up appointments have been made of note the patient wishes to be going home and not interested in any assisted living or longterm or any kind of the further hospital stay she states that she is back to her normal self and is not confused and will like to be discharged. On the date of discharge, the patient was examined: Gen.: No acute distress, alert, nontoxic Heart: Regular rate and rhythm, no murmurs, clicks, gallops, or rubs Lungs: Clear to auscultation bilaterally, breathing is nonlabored Abdomen/GI: Normal tones on auscultation, soft, nontender, nondistended Musculoskeletal/extremities: No clubbing, cyanosis, or edema Vitals reviewed and are listed below Vital Signs (24 hrs) Temp Pulse Resp BP Pulse Ox 08/04/17 07:34 97.3 F 80 20 145/71 95 08/04/17 05:37 97 08/04/17 05:00 97.1 F 79 22 154/71 98 08/04/17 01:00 97.5 F 94 22 152/87 96 08/03/17 20:59 98.2 F 77 20 151/73 94 08/03/17 20:25 98.2 F 82 20 151/73 08/03/17 20:17 82 18 08/03/17 19:44 98.2 F 82 18 136/91 96 08/03/17 15:35 98.2 F 86 20 140/86 96 . Assessment and Plan: 1. As per discharge assessments above 2. Disposition: Home 3. Condition on discharge, stable and improved. 4. Diet: Tube feeds via PEG tube 5. Activities: resume normal activities 6. Follow-Up: 1. PCP 2. 7. Medications at the Time of Discharge: Home Medications 3 Medication Instructions Recorded Confirmed Type Fluticasone Nasal [place] 0.05% 2 spray INH BEDTIME PRN 11/05/15 08/03/17 History [Flonase Nasal [place] 0.05%] amlodipine 10 mg tablet 5 mg PO DAILY #90 tab 01/16/17 08/03/17 Rx Lansoprazole [Prevacid] 30 mg PO DAILY #30 suspdr.rec 07/07/17 08/03/17 Rx buspirone 5 mg tablet 10 mg PO BID #60 tab 07/29/17 08/03/17 Rx Acidophilus/Bulgaricus [Lactinex] 1 tab PO DAILY tab.chew 03/26/18 Rx DULoxetine HCl [Cymbalta] 30 mg PEG DAILY #30 cap 08/04/17 Rx Gabapentin 300 mg PEG QHS #14 cap 08/04/17 Rx Lactobacillus Combination No.8 3,000 mmu cells PO QDAY 08/04/17 Rx [Adult Probiotic] 8. Time, care, counseling and coordination of care for this discharge is greater than 30 minutes. Exam - Vitals Vital Signs: Vital Signs Temperature 97.3 F Temperature Source Temporal Artery Scan Pulse Rate [Pulse Oximeter] 80 Respiratory Rate 20 Blood Pressure [Left Arm] 145/71 Pulse Ox 95 Oxygen Flow Rate 2 Oxygen Delivery Method Nasal Cannula Height 5 ft 5 in Weight 121 lb 9.6 oz Patient Problems - Patient Problem List (1) Altered mental status Current Visit: Yes Status: Acute Code(s): R41.82 - Altered mental status, unspecified Category: Medical (2) Hyponatremia Current Visit: Yes Status: Acute Code(s): E87.1 - Hypo-osmolality and hyponatremia Category: Medical (3) Anxiety Current Visit: No Status: Chronic Onset Date: 06/07/13 Code(s): F41.9 - Anxiety disorder, unspecified Category: Medical
[2017-08-04 13:12] VITALS: BP 163/68; RESP 18; TEMP 98.5; O2SAT 92
--- NOTE | 2017-08-05 09:54 | PTI REPORT ---
Thank you for the referral of Kellie Bello. She was seen on 08/04/17 for an inpatient evaluation secondary to generalized weakness and confusion. SUBJECTIVE: The patient is an 81-year-old female. The patient reported that she lives with her spouse in a single story house. There are two steps with a handrail to enter the house. She states that she was previously modified independent using a rollator walker for all mobility. She reports that her spouse has Alzheimer's , but family checks in on them almost daily. Currently her daughter and her family are out of town for spring, but her son from [place] is staying with them this week. Prior to hospital admission, the patient reports that she had an unrelenting headache. She also reports that they have had some difficulty managing her medication as well as with feeding schedule with her feeding tube. She states that her balance has not been the same since she contracted meningitis several years ago, but reports no falls in the last three months. She also states that she has peripheral neuropathy in bilateral feet. The patient reports no pain, dizziness, or nausea at this time PAST MEDICAL HISTORY: Past medical history can be found in the patient's medical record. OBJECTIVE FINDINGS: General observations: The patient was supine in bed with IV and catheter in place upon the therapist's arrival. Feeding tube was in place due to difficulty swallowing as a result of meningitis several years ago. Bed mobility: The patient was able to perform bed mobility independently and came from supine to seated edge of bed where she sat unsupported. Transfers: The patient was able to perform a sit to stand transfer with contact guard assist. The patient required hand hold assist within the walker to maintain standing balance. Ambulation: The patient ambulated from her room to the elevator, approximately 60 feet and from the elevator to the therapy gym, approximately 125 feet with contact guard assist with rollator walker. During ambulation the patient demonstrated decreased step length and ronna. There was audible clicking and popping of the left hip during the swing phase of gait. The patient reports that her left hip has a history of dislocation and often clicks during walking. Cognition: The patient demonstrated the ability to follow two step directions during the evaluation; however, some reminders were needed for the patient to appropriately lock and unlock the brakes on her walker to ensure safety. Strength: Manual muscle testing results were the same bilaterally. Knee extension/knee flexion was 4+/5, hip flexion was 4/5, and ankle dorsiflexion was 4-/5. ASSESSMENT: The patient was seen for physical therapy inpatient evaluation following hospital admission for generalized weakness. Problem List: Decreased strength Decreased endurance Decreased balance Decreased independence with functional mobility including transfers and ambulation Decreased safety awareness Short-Term Goals: To be met by discharge from inpatient: Patient will be able to perform transfers modified independently using her rollator walker in order to return to prior level of function. Patient will be able to ambulate 150 feet modified independently with rollator walker in order to improve endurance for safe household ambulation. Patient will demonstrate improved safety awareness during treatment sessions by appropriately using the brakes on her rollator walker. Long-Term Goals: To be met following discharge from inpatient: Patient will be seen by outpatient physical therapy. TREATMENT PLAN: Patient will be seen B.I.D during the week and one time per day over the weekend as an inpatient for strengthening and balance exercises, transfer and gait training, and safety education in order to return to prior level of function and to decrease fall risk. INITIAL TREATMENT: Treatment toady consisted of the initial evaluation followed by ambulation to the therapy gym. Lower extremity strengthening exercises were performed x10 each bilaterally including long arc quads with a 1 pound weight, hamstring curls with yellow theraband, seated hip flexion, marches, ankle pumps, hip adduction with blue therapy ball, hip abduction against manual resistance, and static standing balance x2 minutes without an assistive device. Safety education was provided on strategies to reduce fall risk. OT treatment continued at the conclusion of PT treatment. At the end of the session the patient was assisted to sitting in her bedside chair with call button placed within reach and nursing notified of her status. Dictated by: GINO Mccormick Supervised by: TAMANNA Sim
== END 2017-08-04 14:05 | disposition home or self-care (01) | DRG 690 ==
LOC: ER 15:34 → MED/SURG 20:02
PROVIDERS: ADMIT Internal Medicine; ATTEND Internal Medicine

== ENCOUNTER 2017-08-05 08:22 | Inpatient (IN) ==
[2017-08-05] MEDS ORDERED: Sodium Chloride 0.9% 1,000 ML PRIMARY IV ONE (09:05)
[2017-08-05] MEDS ORDERED: LORazepam 2 MG/1 ML VIAL IVP ONE (09:05)
[2017-08-05] MEDS ORDERED: ONDANSETRON 4 MG/2 ML VIAL IVP ONE (09:05)
--- NOTE | 2017-08-05 09:12 | PDOC ---
Neuro Symptoms / Deficit HPI - General Chief Complaint: Neurological Complaints Stated Complaint: coonfusion Date Seen by Provider: 08/05/17 Time Seen by Provider: 08:50 Source: POSITIVE: Patient, Other Nurse's Notes Reviewed & Considered: Yes - History of Present Illness Initial Comments: This is a well-developed, well-nourished, 81-year-old female who is altered mentally. Patient was seen in the emergency room 2 days ago and admitted with hyponatremia and confusion. She was discharged yesterday. Her grandson reports that she was fine for him to until approximately 6 PM when she began to display increasingly abnormal behavior. Abnormalities included walking around in the back yard with blankets covering her head, complaining of being cold, returning to the house and covering up from head to toe with blankets, rambling around the house with all the lights in the house turned on carrying a flashlight. Today the only thing I can get her to say is that I think I'm in the emergency room is that right. She is unable to follow directions and is covering and uncovering herself with blankets here in the emergency room. Further review of systems is unavailable because the patient's altered mental status. Body Location Affected: REPORTS: Head Timing: REPORTS: Unknown Duration: Unknown Severity: Severe Quality: DENIES: Aching, Burning, Cramping, Dullness, Fullness, "Pain", Sharpness, Stabbing, Throbbing, Tenderness, Itching, Pressure, Other Context: DENIES: Insect Bite, Tick Bite, Falling Injury, Head Injury, Other Character of Deficit(s): REPORTS: Other (Confusion) Associated Symptoms: REPORTS: Altered Mental Status, Disoriented, Confused, Agitated Usual Ability to Walk/Stand: REPORTS: Walks w/o Assistance Usual Cognition: REPORTS: Alert & Oriented x3 Similar Symptoms Previously: Yes Recently seen/treated/hospitalized: Yes Any Prior Injuries Related to Current Complaint?: No - Patient Home Medications Home Medications: Home Medications Fluticasone Nasal [place] 0.05% [Flonase Nasal [place] 0.05%] 2 spray INH BEDTIME PRN 11/05/15 amlodipine 10 mg tablet 5 mg PO DAILY #90 tab 01/16/17 Lansoprazole [Prevacid] 30 mg PO DAILY #30 suspdr.rec 07/07/17 buspirone 5 mg tablet 10 mg PO BID #60 tab 07/29/17 Acidophilus/Bulgaricus [Lactinex] 1 tab PO DAILY tab.chew 08/04/17 DULoxetine HCl [Cymbalta] 30 mg PEG DAILY #30 cap 08/04/17 Gabapentin 300 mg PEG QHS #14 cap 08/04/17 Lactobacillus Combination No.8 [Adult Probiotic] 3,000 mmu cells PO QDAY - Patient Allergies Allergies/Adverse Reactions: Allergies 3 Allergy/AdvReac Type Severity Reaction Status Date / Time Penicillins Allergy Intermediate HIVES Verified 08/05/17 12:18 Past Medical History - heen HEENT History: Denies History, Hard of Hearing Additional HEENT History: Bilateral Hearing aids. usually only wears left Cardiovascular History: Hypertension Respiratory History: Pneumonia, Home CPAP Use Additional Respiratory History: Home CPAP with oxygen at night. No oxygen during day. PNEUMONIA X 4 (LAST 04/2016). SILENT ASPIRATIONS/ PEG TUBE PLACEMENT 07/26 Gastrointestinal History: GERD, Irritable Bowel Syndrome Additional Gastrointestinal History: GASTROPARESIS Genitourinary History: Denies History Endocrine History: Denies History Musculoskeletal History: Arthritis Prosthesis or Implant: Yes (Left hip) Additional Musculoskeletal History: Had Left hip surgery November 2014 Neurological History: Alzheimer's, Meningitis Additional Neurological History: NEUROPATHY. Anxiety. MENINGITIS CAUSED NEUROPAthy. alzheimers diagnosis 2 weeks ago Blood Disorders: Denies History Psychiatric History: Anxiety Disorders Additional Psychiatric History: anxiety History of Sexually Transmitted Diseases: No Female Reproductive History: Hysterectomy Cancer History: Denies History In Past Year Been Physically Harmed or Verbally Threatened: No History of MDRO: No Other Type of MDRO: bacterial menigitis Jan 2014 History of Other Communicable Diseases: No Tobacco Use: Never Smoker Alcohol Use: None In the Past 12 Months, Have Used or Abuse Any Substance: None Previous Surgical History: Yes Type / Date of Surgery: LEFT FOOT S FEEDING TUBE/SOPHIE/TONSILLECTOMY/ HYSTERECTOMY, APPENDECTOMY, Left hip surgery, REMOVAL OF PANCREATIC STONE Anesthesia Reactions: No Malignant Hyperthermia: No Significant Family History: No pertinent family hx ROS - Limitations ROS Limitations: Mental Impairment (Patient is altered mentally, alert only to person, further review of systems is unavailable.), Uncooperative Neuro Symptoms / Deficit Exam - General Appearance General Appearance: POSITIVE: Severe Distress - HEENT HEENT: POSITIVE: Head Inspection Nml, Eyes Inspection Nml, Ears Inspection Nml, PERRL, EOMI, Dry Mucous Membranes - Pupil Size Pupil Size: 4 mm: Bilateral - Neuro / Psych Higher Functions: POSITIVE: Oriented to Person, Disoriented to Place, Disoriented to Time, Speech Abnormalities (Slurring of speech), Cognition Abnormalities, Inapp Response to Command Cranial Nerves: POSITIVE: Dysarthria Cerebellar: POSITIVE: Other (Unable to test because of patient's confusion and uncooperative condition.) Peripheral Exam: POSITIVE: Reflexes Normal, Weakness Reflexes: Patellar (R): 3+, Patellar (L): 3+, Radial (R): 4+, Radial (L): 4+ - Neck Neck: POSITIVE: Supple, Non-Tender - Respiratory Respiratory: POSITIVE: No Respiratory Distress, Breath Sounds Normal - Cardiovascular Cardiovascular: POSITIVE: Regular Rate & Rhythm, Heart Sounds Normal Peripheral Pulses: Radial (R): 4+, Radial (L): 4+ - Abdomen Abdomen: Soft: (All Quadrants), Normal Bowel Sounds: (All Quadrants), Denies Tenderness: (All Quadrants), No Splenomegaly: (All Quadrants), No Hepatomegaly: (All Quadrants), No Guarding: (All Quadrants), No Rebound: (All Quadrants), No Palpable Pulse: (All Quadrants), No Palpabale Mass: (All Quadrants), No Distention: (All Quadrants), No Rigidity: (All Quadrants) Additional Abdominal Details: Gastrostomy feeding tube present - Skin Skin: POSITIVE: Intact, Normal For Race, Warm, Dry, No Rash - Extremities Extremity: Non-Tender: (All Extremities), Normal ROM: (All Extremities), Normal Inspection: (All Extremities), Pelvis Stable: (All Extremities) Neuro Symptom/Deficit Progress - Results Reviewed by me Xrays/CTs/US Reviewed by me: Yes Discussed with Radiologist: Yes Lab Results Reviewed by Me: Yes CBC and BMP: 08/05/17 10:33 08/05/17 10:33 - Patient's Progress Pain Medication Addressed: POSITIVE: Not Applicable Re-Examine Time:: 12:07 Status: POSITIVE: Improved MDM / ED Course: Patient was evaluated, an IV started, blood drawn and sent to the lab for studies, MRI of her brain was obtained. Findings: CBC, CMP, TSH, are unremarkable. Urinalysis is positive for moderate bacteria. MRI of her brain shows no acute intracranial abnormalities. Assessment: #1 altered mental status. #2 urinary tract infection. Plan: IV Rocephin, admission. Antibiotics Given: Yes CAP: POSITIVE: Antibiotics - Consult Consult (If Yes, Name of Consulting MD & Time Called): Yes (Dr. [id number] hrs) Consulting MD will see pt:: POSITIVE: [facility] Admit Counseled: POSITIVE: Patient, Family, RE: Lab Results, RE: Radiology Results, RE : DX, RE: Need for F/U Patient Care Time - Estimated PCT Patient Care Time (In Minutes): 45 Vital Signs - Recent Vital Signs Vital Signs: Vital Signs (Last 8 hours) Temp Pulse Pulse Resp BP Pulse Ox 08/05/17 16:47 97.1 F 90 16 08/05/17 12:35 78 99 08/05/17 12:30 82 100 08/05/17 12:25 82 159/83 99 08/05/17 12:00 82 98 08/05/17 11:30 81 97 08/05/17 09:20 80 94 - VS Reviewed Vital Signs Reviewed: Yes Discharge Clinical Impression: UTI (urinary tract infection), Altered mental status Discharge Disposition: Admit to Inpatient Condition: Fair Date Decision to Admit to Inpatient: 08/05/17 Time Decision to Admit to Inpatient: 12:08
--- NOTE | 2017-08-05 09:32 | EKG ---
[address] [place] [id number] Measurements Intervals [place] Rate: 77 P: 86 DE: 189 QRS: 71 QRSD: 84 T: 73 QT: 385 QTc: 416 Interpretive Statements SINUS RHYTHM WITH OCCASIONAL SUPRAVENTRICULAR PREMATURE COMPLEXES SEPTAL MYOCARDIAL INFARCTION [40+ ms Q WAVE IN V1/V2], PROBABLY OLD Compared to ECG 11/17/2014 14:06:06 No significant changes Electronically Signed On 08-05-17 10:09:50 MDT by Luigi Rutledge MD [email or web address]
--- NOTE | 2017-08-05 10:14 | DI ---
MRI BRAIN SCAN WITHOUT IV CONTRAST, 08/05/2017 9:05 AM: Clinical History: Acute mental status change. Previous Exam: 11/07/2015. Sequences: Sagittal T1; Axial SURENDRA T2 and FLAIR. Axial diffusion weighted images with ADC mapping were also performed. The fourth ventricle is of normal size, shape, position and contour. The third and lateral ventricles are mildly dilated but are otherwise normal for her age. There is no evidence of an acute hemorrhagi c or bland infarct. There are multiple punctate periventricular white matter hyperintensities bilater ally that extend into the watershed territory, consistent with small vessel ischemic disease. This am ount of ischemic disease is appropriate for the patient's age and has not changed. There is moderate cerebellar and moderately severe cerebral atrophy. Diffusion weighted imaging with ADC mapping is nor mal. There are no extracerebral mantels or shift of the midline structures. The paranasal sinuses are normal. Readin. There is no evidence of an acute hemorrhagic or bland infarct. 2. Small vessel ischemic disease, stable since the last exam. 3. Moderate cerebellar and moderately severe cerebral atrophy.
[2017-08-05 10:39] LABS: VENOUS PH 7.51 (7.32-7.42)
[2017-08-05 10:42] LABS: BASOPHILS # (AUTO) 0.02 10*3/UL; BASOPHILS % (AUTO) 0.2 % (0-1); EOSINOPHILS # (AUTO) 0.01 10*3/UL; EOSINOPHILS % (AUTO) 0.1 % (0-8); Hemoglobin [HGB] 13.8 g/dL (12.0-16.0); LYMPHOCYTES # (AUTO) 1.73 10*3/uL; MEAN CORPUSCULAR HEMOGLOBIN 31.5 PG (27-31); MEAN CORPUSCULAR HGB CONC 34.5 g/dL (33-37); MEAN CORPUSCULAR VOLUME 91.3 FL (81-99); MONOCYTES # (AUTO) 0.95 10*3/UL (0.3-0.8); MONOCYTES % (AUTO) 10.2 % (5-15); NEUTROPHILS # (AUTO) 6.57 10*3/UL; NEUTROPHILS % (AUTO) 70.7 % (50-80); RED BLOOD COUNT 4.38 10^6/uL (4.20-5.40)
[2017-08-05 10:43] LABS: PLATELET MORPHOLOGY COMMENT NORMAL MORPHOLOGY (NORM); RBC MORPHOLOGY COMMENT NORMAL MORPHOLOGY (NORM); WBC MORPHOLOGY COMMENT NORMAL MORPHOLOGY (NORM)
[2017-08-05 11:40] LABS: BLOOD UREA NITROGEN 27 mg/dL (7-22)
[2017-08-05 11:41] LABS: SERUM ALBUMIN 4.4 g/dL (3.5-4.8)
[2017-08-05 11:41] LABS: BILIRUBIN,URINE NEGATIVE (NEG); CLARITY,URINE CLEAR (CLEAR); COLOR,URINE YELLOW (Y); GLUCOSE, URINE (UA) NEGATIVE (NEG); OCCULT BLOOD,URINE MODERATE (NEG); PROTEIN,URINE NEGATIVE (NEG); UROBILINOGEN,URINE 0.2 EU/dL (0.2)
[2017-08-05 11:48] LABS: URINE SAMPLE TYPE CATH SPECIMEN
[2017-08-05 11:49] LABS: BACTERIA,URINE MODERATE
[2017-08-05] MEDS ORDERED: cefTRIAXone Inj 2 GM in Sodium Chloride 0.9% 100 ML IV ONE (12:00)
--- NOTE | 2017-08-05 12:01 | DI ---
AP CHEST X-RAY, 08/05/2017 9:05 AM : Clinical History: Confusion. Previous Exam: 08/03/2017. There is no acute soft tissue or bony abnormality. Heart size is normal. There are bilateral lower lo be infiltrates that have progressed since the prior exam. The location and the presence of chronic br onchiectasis or bronchitis manifested by "tram tracking" are consistent with chronic aspiration pneum onia. Mediastinal structures are normal. There are no pulmonary nodules. Reading: Bilateral lower lobe aspiration pneumonia with underlying chronic bronchitis or bronchiectasis. Comment: This patient had a modified esophagram performed on 03/06/2017 that documented aspiration.
--- NOTE | 2017-08-05 13:24 | PDOC ---
HPI - History of Present Illness History of Present Illness: This very nice 81-year-old female who was admitted 2 days ago for altered mental status and possible UTI patient was ready being treated for this we gave her 2 more doses of ceftriaxone and patient improved dramatically and wanted to go home her family took her home because she would sign AMA otherwise well she went home she was okay until about 6 in the afternoon her son Blue she started having the abnormal behavior D and belligerent walking in the backyard covering her head with blankets Gen. the lights on in the house she was carrying flashlights also was letting the dogs out every half hour and also days prior she called ambulance twice because she wanted her 's stomach pumped I talked to the son and granddaughter they believe she is not safe at home and they don't think her grandfather is safe as well he has Parkinson's disease and her pets aren't safe as well we will admit her for continue treating for UTI hopefully this will improve I will hold her BuSpar since they said since she started the BuSpar to started happening as well yesterday we cut the Cymbalta and half because she had urinary retention after I spoke to her neurologist I will also consult [facility] and consult PT OT and social service for placement as the family are not able to take care of her any longer. Patient received 1 mg of Valium in the ER she still appears confused does not know what' s going on does not remember what happened at home as well but she has no other complaints Past Medical History Medical History: 1. Hypertension. 2. Idiopathic peripheral neuropathy. 3. Anxiety. 4. H. influenzae meningitis in 2013. 5. History of gastroparesis. 6. Obstructive sleep apnea, on CPAP. 7. Loss of weight, adult. 8. Recurrent aspiration pneumonia. Surgical History: 1. Cholecystectomy 2007. 2. Hysterectomy. 3. Degenerative disc disease status post rhizotomy in 2010. 4. Gallstone pancreatitis with cholecysectomy. 5. appendectomy. 6. Tonsillectomy and adenoidectomy. 7. PEG tube placement 2, most recently July 2016 Pertinent Family History: Congestive heart failure both parents Past Social History: Does not smoke. . Has children, grandchildren and 7 great-grandchildren. Does not drink alcohol. The patient's has dementia. The patient lives here in [place], [place]. Tobacco Use: Never Smoker In the Past 12 Months, Have Used or Abuse Any of the Following Substance: None Medication / Allergies Home Medications: Home Medications 3 Medication Instructions Recorded Confirmed Type Fluticasone Nasal [place] 0.05% 2 spray INH BEDTIME PRN 11/05/15 08/05/17 History [Flonase Nasal [place] 0.05%] amlodipine 10 mg tablet 5 mg PO DAILY #90 tab 01/16/17 08/05/17 Rx Lansoprazole [Prevacid] 30 mg PO DAILY #30 suspdr.rec 07/07/17 08/05/17 Rx buspirone 5 mg tablet 10 mg PO BID #60 tab 07/29/17 08/05/17 Rx Acidophilus/Bulgaricus [Lactinex] 1 tab PO DAILY tab.chew 08/04/17 08/05/17 Rx DULoxetine HCl [Cymbalta] 30 mg PEG DAILY #30 cap 08/04/17 08/05/17 Rx Gabapentin 300 mg PEG QHS #14 cap 08/04/17 08/05/17 Rx Lactobacillus Combination No.8 3,000 mmu cells PO QDAY 08/04/17 08/05/17 Rx [Adult Probiotic] Allergies/Adverse Reactions: Allergies 3 Allergy/AdvReac Type Severity Reaction Status Date / Time Penicillins Allergy Intermediate HIVES Verified 08/05/17 12:18 Review of Systems - Review of Systems All Systems: Reviewed & No Additional Complaints Except as Stated Exam - Vitals Vital Signs: Vital Signs Temperature 97.1 F Temperature Source Temporal Artery Scan Pulse Rate [Pulse Oximeter] 90 Respiratory Rate 16 Blood Pressure [Left Arm] 176/65 Pulse Ox 96 Oxygen Delivery Method Room Air Height 5 ft 5 in Weight 140 lb - General General Appearance: Cooperative, Mild Distress - Eye Eye Exam: POSITIVE: PERRL, EOMI - Respiratory Respiratory Exam: POSITIVE: Clear to Auscultation - Bilaterally, Breathing Non Labored, Normal To Percussion, Normal to Percussion and Palpation - Cardiovascular Cardiovascular Exam: POSITIVE: RRR, No Murmur, No Clicks, No Gallops, No Rubs, PMI Non-Displaced - GI/Abdominal GI/Abdominal Exam: POSITIVE: Normal Bowel Sounds, Non Tender, Non Distended, Soft, No Masses, No Hepatomegaly, No Splenomegaly, No Organomegaly Additional GI/Abdominal Exam Details: Patient has a PEG tube - Extremities Extremities Exam: POSITIVE: No Clubbing Present, No Edema Present, No Cyanosis Present Results - Labs CBC and BMP: 08/05/17 10:33 08/05/17 10:33 Assessment and Plan - Patient Problems (1) Altered mental status Current Visit: Yes Status: Acute Code(s): R41.82 - Altered mental status, unspecified (2) History of left hip replacement Current Visit: No Status: Acute Onset Date: 03/31/15 Code(s): Z96.642 - Presence of left artificial hip joint (3) Anxiety Current Visit: No Status: Chronic Onset Date: 06/07/13 Code(s): F41.9 - Anxiety disorder, unspecified (4) Feeding by G-tube Current Visit: No Status: Chronic Code(s): Z93.1 - Gastrostomy status - Assessment / Plan Additional Assessment/Plan Details: #1 severe anxiety irritability dementiacould be multifactorial medication dementia Alzheimer's type unable take care of self according to family members dangers to herself dogs her we will stop the BuSpar I will treat her UTI and monitor patient consult PTOT and [facility]. She will receive ceftriaxone 2 g daily I will sign out to Dr. Jones see my HPI for further plan also insert Amaral catheter for possible urinary retention and accurate measurement patient is a very high fall risk as well we'll use Ativan for irritability
[2017-08-05] MEDS ORDERED: NORMAL SALINE 10 ML SYRINGE FLUSH IVP PRN (13:39)
[2017-08-05] MEDS ORDERED: LIDOCAINE HCL 2 % 10 ML JELLY URO-JECT TOPICAL PRN (13:39)
[2017-08-05] MEDS ORDERED: LIDOCAINE W/ SODIUM BICARB 0.5 ML SYR SUBD PRN (13:39)
[2017-08-05] MEDS ORDERED: ONDANSETRON 4 MG/2 ML VIAL IVP PRN (13:39)
[2017-08-05] MEDS ORDERED: ACETAMINOPHEN 325 MG TABLET PO PRN (13:39)
[2017-08-05] MEDS ORDERED: LORazepam 2 MG/1 ML VIAL IVP PRN (13:39)
[2017-08-05] MEDS ORDERED: DOCUSATE 100 MG CAPSULE PO PRN (13:39)
[2017-08-05] MEDS ORDERED: CALCIUM CARBONATE 500 MG (TUMS) CHEWABLE TABLET PO PRN (13:39)
[2017-08-05] MEDS: cefTRIAXone Inj 2 GM in Sodium Chloride 0.9% 100 ML IV SCH (15:20)
[2017-08-05] MEDS ORDERED: DULOXETINE 30 MG CAPSULE PO ONE (21:29)
[2017-08-05] MEDS ORDERED: QUEtiapine Tab 25 MG TAB PO ONE (22:00)
[2017-08-05] MEDS: DULOXETINE 30 MG CAPSULE PO SCH (22:18)
[2017-08-05] MEDS: GABAPENTIN 300 MG CAPSULE PO SCH (22:19)
[2017-08-06 05:09] LABS: BASOPHILS # (AUTO) 0.07 10*3/UL; BASOPHILS % (AUTO) 0.8 % (0-1); EOSINOPHILS # (AUTO) 0.07 10*3/UL; EOSINOPHILS % (AUTO) 0.8 % (0-8); Hematocrit [HCT] 39.2 % (37.0-47.0); Hemoglobin [HGB] 13.5 g/dL (12.0-16.0); LYMPHOCYTES # (AUTO) 2.77 10*3/uL; MEAN CORPUSCULAR HEMOGLOBIN 31.5 PG (27-31); MEAN CORPUSCULAR HGB CONC 34.4 g/dL (33-37); MEAN CORPUSCULAR VOLUME 91.6 FL (81-99); MEAN PLATELET VOLUME 9.7 FL (7.4-12.2); MONOCYTES # (AUTO) 0.85 10*3/UL (0.3-0.8); MONOCYTES % (AUTO) 9.5 % (5-15); NEUTROPHILS # (AUTO) 5.14 10*3/UL; NEUTROPHILS % (AUTO) 57.6 % (50-80); RED BLOOD COUNT 4.28 10^6/uL (4.20-5.40)
[2017-08-06 05:20] LABS: PLATELET MORPHOLOGY COMMENT NORMAL MORPHOLOGY (NORM); RBC MORPHOLOGY COMMENT NORMAL MORPHOLOGY (NORM); WBC MORPHOLOGY COMMENT NORMAL MORPHOLOGY (NORM)
[2017-08-06 05:22] LABS: BLOOD UREA NITROGEN 19 mg/dL (7-22)
[2017-08-06] MEDS: DULOXETINE 30 MG CAPSULE PO SCH (08:27)
[2017-08-06] MEDS: PANTOPRAZOLE 40 MG TABLET PO SCH (08:27)
[2017-08-06] MEDS: ACIDOPHILUS/BULGARICUS CHEWABLE TABLET PO SCH (08:28)
--- NOTE | 2017-08-06 10:37 | PTI REPORT ---
Thank you for the referral of Kellie Bello. She was seen on 08/05/17 for an inpatient evaluation secondary to severe confusion and generalized weakness. SUBJECTIVE: The patient is an 81-year-old female. The patient reported that she lives with her spouse in a single story house. There are two steps with a handrail to enter the house. She states that she was previously modified independent using a rollator walker for all mobility. She reports that her spouse has Alzheimer's , but family checks in on them almost daily. Currently her daughter and her family are out of town for spring, but her son from [place] is staying with them this week. Prior to hospital admission, the patient reports that she had an unrelenting headache. She also reports that they have had some difficulty managing her medication as well as with feeding schedule with her feeding tube. She states that her balance has not been the same since she contracted meningitis several years ago, but reports no falls in the last three months. She also states that she has peripheral neuropathy in bilateral feet. The patient reports no pain, dizziness, or nausea at this time. The patient's granddaughter was present and reports that the patient has not had her normal medications since being admitted to the hospital including her anti-psychotic medications. The granddaughter also states that the neurologist adjusted her medications approximately a week and a half ago. Nursing reported that the patient received Ativan upon admission to the hospital. PAST MEDICAL HISTORY: Past medical history can be found in the patient's medical record. OBJECTIVE FINDINGS: General observations: The patient was sleeping supine in bed with IV and 3 liters of supplemental oxygen upon the therapist's arrival. Feeding tube was in place due to difficulty swallowing as a result of meningitis several years ago. Family was present in the room including her spouse and her granddaughter. The patient was easily awakened. She was oriented to person and could recognize familiar faces; however, she was not oriented to time or place. She appeared very lethargic and confused during the evaluation and had difficulty following commands as well as confusion about where she was and what was going on. Bed mobility: The patient was able to perform bed mobility independently and came from supine to seated edge of bed where she sat unsupported. The patient needed cues to shift weight forward to maintain balance. Transfers: The patient was able to perform a sit to stand transfer with contact guard assist and her rollator walker. Ambulation: The patient ambulated 150 feet around the nurse's station with contact guard to very minimal assistance. During ambulation the patient displayed decreased awareness of objects on her left side and was continually bumping into awan with her walker. She needed several cues for safety and pursuing her walker. Cognition: The patient demonstrated the ability to follow two step directions during the evaluation; however, some reminders were needed for the patient to appropriately lock and unlock the brakes on her walker to ensure safety. Strength: Manual muscle testing results were the same bilaterally. Knee extension/knee flexion was 4+/5, hip flexion was 4/5, and ankle dorsiflexion was 4-/5. ASSESSMENT: The patient was seen for physical therapy inpatient evaluation following hospital admission for severe confusion and generalized weakness. The patient was readmitted today after being discharged home yesterday. The patient would benefit from continued skilled physical therapy in order to return to prior level of function and to decrease fall risk. Problem List: Decreased strength Decreased endurance Decreased balance Decreased independence with functional mobility including transfers and ambulation Decreased safety awareness Increased confusion Short-Term Goals: To be met by discharge from inpatient: Patient will be able to perform transfers modified independently using her rollator walker in order to return to prior level of function. Patient will be able to ambulate 150 feet modified independently with rollator walker in order to improve endurance for safe household ambulation. Patient will demonstrate improved safety awareness during treatment sessions by appropriately using the brakes on her rollator walker. Long-Term Goals: To be met following discharge from inpatient: Patient will be seen by outpatient physical therapy. TREATMENT PLAN: Patient will be seen B.I.D during the week and one time per day over the weekend as an inpatient for strengthening and balance exercises, transfer and gait training, and safety education in order to return to prior level of function and to decrease fall risk. terminal system operator care placement options were discussed with the patient's granddaughter. INITIAL TREATMENT: Treatment toady consisted of the initial evaluation followed by the patient ambulating 150 feet around the nurse's station. At the end of the session the patient returned to supine in bed with call button within reach and family present. Dictated by: Keriann Patel, SPT Supervised by: Kayla Whalen DPT MTDD
--- NOTE | 2017-08-06 11:48 | OT.PROG ---
Progress Note Progress Note: S: pt stated she wanted to get dressed before coming down to therapy. She reported that her daughter could bring her up some cloths. O: pt was seen in her room later in the a.m. after nursing assisted her with dressing. She completed functional transfer all the way downstairs with no breaks. She first began with arm bike which she participated in for 6 min to increase her overall activity tolerance. She completed transfer to mat table where she completed shoulder press with 0# and 2# ball to increase strength. She then complete UE exercises with RTB in all planes to also increase strength to assist with postural transitions. A: pt participated well and appeared to have good activity tolerance as she transferred all the way downstairs and back. P: continue per POC.
--- NOTE | 2017-08-06 12:04 | OTI REPORT ---
Thank you for the referral of Kellie Bello. She was seen on 08/05/17 for an occupational therapy inpatient evaluation secondary to severe confusion and generalized weakness. SUBJECTIVE: The patient is an 81-year-old female who was brought in secondary to having increased confusion at home. The patient's granddaughter was present during the evaluation today. The patient was just discharged from the hospital yesterday and her granddaughter stated that the patient was hallucinating slightly. She is also perseverating on her water, medications, and food. It all started about a week ago when the patient called the ambulance two different times about two different issues that were not related. She has had some medication changes lately with her neurologist and the granddaughter is wondering what levels she needs to be on for her Buspar and Gabapentin. On Friday the patient had EMDR therapy with her counselor/psychologist. She had a urinary tract infection start last Friday. Since then, that is where we are having more difficulties. Prior to admission the patient was living with her in their home. Her has dementia and cognitive thinking difficulties. The patient is not alert enough to go through cognitive testing today. Her nurse stated that she had received Ativan in the emergency room and this is affecting her cognition as well. PAST MEDICAL HISTORY: Past medical history can be found in the patient's medical record. OBJECTIVE FINDINGS: General observations: The patient was slightly asleep upon the therapist's arrival. The granddaughter and the therapist really discussed the granddaughter 's concerns with the medication changes that the patient has gone through recently. The granddaughter did not think that the patient has had any of her regular medications today. Nursing did state that she had Ativan and they thought that her son had given her her medication, but that is undetermined at this time. The patient was able to open her eyes. She thought the date was 1915 and that it was August 10. She knew she was in [place], but she thought she was in the clinic. She did not realize that she was in the hospital. The patient was able to recognize the therapist's face as well as her grandson's face and was able to state the names of those people. She knew her own name and she knew her birthday. Bed mobility: The patient was able to come from supine to sit. Her balance sitting edge of bed was fair. She needed stand by to contact guard assist to keep her balance while sitting edge of bed. Range of motion: The patient demonstrated active range of motion of bilateral upper extremities that was within functional limits. Strength: Strength was 3+/5 for shoulder flexion, abduction was 3+/5, elbow flexion/extension was 4/5, and wrist flexion/extension was 4/5. Activities of daily living: The patient appeared "spacey" today. This is not typical of the patient. When getting up to go to the sink, she kept running into the wall on the left side. Vision: Visual tracking was assessed. The patient did well to the right, to the left she tends to move her whole neck. When trying to isolate her neck and move her eyes to the left, this was a little more difficult for her. She states that she loses vision at approximately 50-60 degrees on the periphery on the left. Transfers: The patient requires min to mod assist to keep her balance with functional transfers. She is off balance compared to her baseline. ASSESSMENT: The patient's orientation is fair. She does seem to be demonstrating more confusion. She was observed running into objects on the left of her whereas typically she would observe these. Her granddaughter is concerned about her ability to care for herself at home. The therapist and the granddaughter discussed 24-hour care options. Problem List: Increased confusion Generalized weakness Decreased balance Decreased ability to perform functional transfers Short-Term Goals: To be met by discharge from inpatient: Patient will participate in a Cognitive Performance Test. Patient will improve upper extremity strength to 4+/5 to improve her functional transfers and functional abilities. Patient will be able to dress self including set up with good balance. Long-Term Goals: To be met following discharge from inpatient: Patient will be able to return home demonstrating independence with simple ADLs and all functional transfers. TREATMENT PLAN: Patient will be seen B.I.D during the week and one time per day over the weekend as an inpatient to address the above goals and objectives. INITIAL TREATMENT: Treatment today consisted of the initial evaluation followed by the patient sitting on bed working on upper extremity range of motion and balance. The patient transferred from the bed to the sink to the chair and some visual defects to the left were noted. The patient did have a flat affect during the session. EMILY
--- NOTE | 2017-08-06 13:36 | PDOC(PROG) ---
Date and Time of Service: 08/07/2079 1:32 PM Interval History: Subjective Patient is awake, she seemed to be more calm today. According to the granddaughter she is much improved compared to what she was. Apparently there was a recent change in the dosage of the BuSpar to 10 mg twice a day, the day after that happened there was a change in her mental status. Also she had a urinary tract infections. She came into the hospital treated for UTI, was discharged home. However she come back again with more confusion but apparently she is much improved now. The patient herself doesn't remember coming to the hospital. She knows the date the month the year. She knows where she is. Objective : Data - Labs CBC and BMP: 08/06/17 04:53 08/06/17 04:53 Objective : Exam - General General Appearance: No Acute Distress, Cooperative, Thin - Head Head Exam: Normal Inspection, Atraumatic - Eye Eye Exam: Normal Appearance - ENT ENT Exam: Normal Exam - Neck Neck Exam: Normal Inspection - Respiratory Respiratory Exam: Clear to Auscultation - Bilaterally - Cardiovascular Cardiovascular Exam: RRR - GI/Abdominal GI/Abdominal Exam: Normal Bowel Sounds, Non Tender, Non Distended, Soft, No Organomegaly - Rectal Rectal Exam: Deferred - External Exam: Deferred - Extremities Extremities Exam: Normal Inspection - Back Back Exam: Normal Inspection - Neurological Neurological Exam: Alert, Oriented x 3, CN II-XII Intact, Speech Intact / Clear , Moves All Extremities Equally - Psychiatric Psychiatric Exam: Normal Affect - Integumentary Integumentary Exam: Normal Color Assessment and Plan - Patient Problems (1) Anxiety Current Visit: No Status: Chronic Onset Date: 06/07/13 Comment: She said she has been on BuSpar for a long time and she wants to go back on that, I think we'll try the previous dosage that she was on which was 5 mg twice a day. We'll watch her overnight. Code(s): F41.9 - Anxiety disorder, unspecified (2) Feeding by G-tube Current Visit: No Status: Chronic Comment: Continue home feeding regimen. Code(s): Z93.1 - Gastrostomy status (3) Altered mental status Current Visit: Yes Status: Acute Comment: This is a looks delirium probably multifactorial, secondary to increased dosage of the BuSpar plus the presence of UTI. This seemed to be resolved. Continue antibiotics, will try the previous dosage of BuSpar which she was taking for quite few years and see whether she can tolerat that again. Code(s): R41.82 - Altered mental status, unspecified (4) Recurrent aspiration pneumonia Current Visit: No Status: Chronic Onset Date: 04/29/16 Comment: Chest x-ray suggests the aspiration will add Flagyl to her medications. Code(s): J69.0 - Pneumonitis due to inhalation of food and vomit
[2017-08-06] MEDS: cefTRIAXone Inj 2 GM in Sodium Chloride 0.9% 100 ML IV SCH (13:52)
[2017-08-06] MEDS: metroNIDAZOLE Tab 500 MG TAB PO SCH ×2 (15:06→21:03)
--- NOTE | 2017-08-06 16:34 | OT.PROG ---
Progress Note Progress Note: Occupational Therapy: 25 min S: pt stated she was feeling fine today and happy her family came to visit. O: pt completed functional ambulation with 4WW and CGA for safety x166'. pt completed Mini-Mental State Examination testing. pt scored 23/30 overall on MMSE testing. Pts score indicates that she has a mild cognitive impairment and increased odds of dementia. pt completed YTB exercises of biceps x10, triceps x10, chest pulls x10. pt completed 2# BUE exercises of chest press x10, shoulder press x10, shoulder flexion x10. A: pt tolerated session well. P: continue POC
--- NOTE | 2017-08-06 17:36 | PT.PROG ---
Progress Note Progress Note: S. Patient stated she would like to go to the therapy gym. O. Patient ambulated 175 feet to the therapy gym where she performed exercises in the form of; long arc quads, marches, ball squeezes, clam shells, sit to stands all x 10 bilaterally with 2#, minute drills 3x1 minute with 2#. Patient performed tandem walking and side stepping x 2 laps each. Patient ambulated 175 feet back to her room where she was left with alarm and call light. A. Patient tolerated therapy well, she fatigues easily and requires frequent rest breaks during exercise. she continues to be weak however was able to perform all exercises with no complaints. Patient would continue to benefit from skilled therapy at this time to increase strength, mobility and endurance.
--- NOTE | 2017-08-06 17:39 | PT.PROG ---
Progress Note Progress Note: S. Patient stated she is feeling good this afternoon and would like to go to the therapy gym. O. Patient ambulated 175 feet to the therapy gym where she performed seated exercises in the form of; long arc quads, marches, ball squeezes, clam shells, resisted knee flexion all x 10 bilaterally with 2# and red theraband. Patient used the nu-step x 10 minutes, then ambulated 175 feet back to her room where she was left at the edge of bed with alarm and call light. A. Patient tolerated therapy well this afternoon, she continues to be weak and fatigues easily, she would benefit from continued strengthening and endurance to be more independent at this time. P. Continue POC.
[2017-08-06] MEDS: busPIRone HCL 5 MG TABLET PO SCH (21:03)
[2017-08-06] MEDS: GABAPENTIN 300 MG CAPSULE PO SCH (21:03)
[2017-08-07 05:32] LABS: BLOOD UREA NITROGEN 22 mg/dL (7-22)
[2017-08-07] MEDS: PANTOPRAZOLE 40 MG TABLET PO SCH (08:54)
[2017-08-07] MEDS: busPIRone HCL 5 MG TABLET PO SCH ×2 (08:54→21:02)
[2017-08-07] MEDS: DULOXETINE 30 MG CAPSULE PO SCH (08:54)
[2017-08-07] MEDS: metroNIDAZOLE Tab 500 MG TAB PO SCH ×3 (08:55→21:02)
--- NOTE | 2017-08-07 09:09 | PDOC(PROG) ---
Date and Time of Service: 08/07/2017 9:07 AM Interval History: Subjective Patient looks better, there is no more confusion. No other symptoms. Objective : Data - Labs CBC and BMP: 08/06/17 04:53 08/07/17 04:07 Objective : Exam - General General Appearance: No Acute Distress, Cooperative - Head Head Exam: Normal Inspection - Eye Eye Exam: Normal Appearance - ENT ENT Exam: Normal Exam - Neck Neck Exam: Normal Inspection - Respiratory Additional Respiratory Exam Details: Crackles heard at the lung bases - Cardiovascular Cardiovascular Exam: RRR - GI/Abdominal GI/Abdominal Exam: Normal Bowel Sounds, Non Tender, Non Distended, Soft, No Organomegaly Additional GI/Abdominal Exam Details: PEG in place - Rectal Rectal Exam: Deferred - External Exam: Deferred - Extremities Extremities Exam: Normal Inspection - Back Back Exam: Normal Inspection - Neurological Neurological Exam: Alert, Oriented x 3, CN II-XII Intact, Speech Intact / Clear , Moves All Extremities Equally - Psychiatric Psychiatric Exam: Normal Affect Assessment and Plan - Patient Problems (1) Altered mental status Current Visit: Yes Status: Acute Comment: I think she had delirium and that's seemed to be resolved, it was multifactorial probably secondary to infection and medications. We were able to restart the BuSpar at the lower dosage and she seemed to tolerate that. Will continue antibiotics for another day may be home tomorrow. Code(s): R41.82 - Altered mental status, unspecified (2) Anxiety Current Visit: No Status: Chronic Onset Date: 06/07/13 Comment: Continue the BuSpar at the current dosage. Code(s): F41.9 - Anxiety disorder, unspecified (3) Feeding by G-tube Current Visit: No Status: Chronic Comment: Continue same feeding plan Code(s): Z93.1 - Gastrostomy status (4) Recurrent aspiration pneumonia Current Visit: No Status: Chronic Onset Date: 04/29/16 Comment: She is covered with Rocephin and Flagyl. Code(s): J69.0 - Pneumonitis due to inhalation of food and vomit
[2017-08-07] MEDS: ACIDOPHILUS/BULGARICUS CHEWABLE TABLET PO SCH (09:18)
[2017-08-07] MEDS: cefTRIAXone Inj 2 GM in Sodium Chloride 0.9% 100 ML IV SCH (14:39)
--- NOTE | 2017-08-07 15:40 | OT PM DAY ---
Diagnosis : Increased Confusion/Generalized Weakness PM - Occupational Therapy S: The patient reports she is pretty tired this afternoon. She states she did not sleep well last night. O: Today the patient was alert and oriented; however, when asked for directional sense within the hospital, she continues to go to the right instead of the left. Today the patient was able to come from supine to sit independently. While using her wheeled walker, she was able to wheel herself into the bathroom. She is not on oxygen today. She was able to complete the toilet transfer with stand by assist. She completed all toilet hygiene activities independently with stand by assist. She then went to the sink and stood x3 minutes while completing hygiene activities. Downstairs in therapy we worked on functional tasks including standing and folding laundry and putting pillowcases on pillows to improve standing balance. She tends to go into a kyphotic position and needs cues to stand up straight. She did need to hang on to the mat table with stand by assist. The patient then worked on picking up cones off of the floor with mod assist and also worked on reaching activities with clothespins x2 minutes while in a standing position. She performed upper extremity exercises including biceps curls, pronation/supination, wrist flexion/ extension, and shoulder flexion x10 repetitions bilaterally. A: The patient is making gains with her overall functional transfers and strength. She still demonstrates some slight confusion with some topographical orientation and needs cues for directional sense. She is in a non-familiar environment which may be affecting that. P: Continue seeing patient BID during the week and one time per day over the weekend for upper extremity strengthening, ADLs, and overall functional mobility. EMILY
--- NOTE | 2017-08-07 16:25 | OT.PROG ---
Progress Note Progress Note: S: pt reports that she is feeling good. She stated that she does not like wearing socks. O: pt was seen in her room and completed bed mobility Ind. She then stood and completed transfer entire way to therapy with no breaks. She completed 8 min on NU step to increase her activity tolerance. She transferred INd to mat table and completed Ue exercises. She completed UE exercises with RTB in all planes x15 wtih BUE's. She than completed balance grid and side stepping to improve her overall balance during ambulation. A: pt participate well and displays good activity tolerance. She completed all transfers with zero near falls and her stability during ambulation appears to be good as long as she is using her walker. P: continue per POC.
--- NOTE | 2017-08-07 17:40 | PT.PROG ---
Progress Note Progress Note: S. Patient stated she would like to go to the therapy gym. O. Patient ambulated 175 feet to the therapy gym where she performed exercises in the form of; long arc quads, marches, ball squeezes, clam shells, sit to stands all x 10 bilaterally with 2#, minute drills 3x1 minute with 2#. Patient ambulated 175 feet back to her room where she was left with alarm and call light. A. Patient tolerated therapy well, she fatigues easily and requires frequent rest breaks during exercise. she continues to be weak however was able to perform all exercises with no complaints. Patient would continue to benefit from skilled therapy at this time to increase strength, mobility and endurance. P. Continue POC.
[2017-08-07] MEDS: GABAPENTIN 300 MG CAPSULE PO SCH (21:02)
[2017-08-07] MEDS ORDERED: QUEtiapine Tab 25 MG TAB PO PRN (22:14)
[2017-08-08] MEDS: PANTOPRAZOLE 40 MG TABLET PO SCH (09:03)
[2017-08-08] MEDS: DULOXETINE 30 MG CAPSULE PO SCH (09:03)
[2017-08-08] MEDS: ACIDOPHILUS/BULGARICUS CHEWABLE TABLET PO SCH (09:14)
[2017-08-08] MEDS: busPIRone HCL 5 MG TABLET PO SCH (09:14)
[2017-08-08] MEDS: metroNIDAZOLE Tab 500 MG TAB PO SCH (09:14)
[2017-08-08 10:26] VITALS: BP 139/73; RESP 16; TEMP 97; O2SAT 94
--- NOTE | 2017-08-08 10:26 | DCSUMMARY ---
Hospitalization Summary Admit Date: 08/05/2017 Discharge Date: 08/08/17 Hospital Course: Discharge diagnoses 1. Urinary tract infection 2. Aspiration pneumonia 3. Dementia 4. Possible delirium 5. History of hypertension 6. History of idiopathic peripheral neuropathy 7. History of anxiety 8. History of H. influenzae meningitis in 2013 9. History of PEG placement 10. History of sleep apnea Hospital course This is an 81 years old female with medical history significant for history of hypertension, peripheral neuropathy, dementia, history of previous H influenzae meningitis, recurrent aspiration pneumonia and history of PEG placement before who was brought to the hospital for change in mental status, she was admitted 2 days prior to the current admission was found to have UTI and was put on antibiotics and she was discharged home. Apparently after she was discharged home became belligerent walking around in the back yard with blankets covering her head, complaining of being cold, returning to the house and covering up from head to toe with blankets, rambling around the house with all the lights in the house turned on carrying a flashlight. So she was admitted again to the hospital. Admitted by Dr. Ho please see his note. The family did report that things started to happen the next day after a change in the dosage of the BuSpar so that was with held. Dr. Ho spoke with Dr. Gipson and they cut the dosage also the Cymbalta to 30 mg a day. I did see the patient the next day she was making improvement. 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 The chest x-ray also did show possible aspiration. So we added in addition to the ceftriaxone Flagyl I kept her in the hospital she seemed to be calm making progress. On the day of discharge she was doing better we thought that she can be discharged home she was oriented to the time place and person she knew where she was. I thought I will add Seroquel to her medication at night and see whether that would help as the family reported the change mostly to happen at night and see whether that's would help her sleep and her behavior. I did tell the granddaughter this is a small dosage there is a room depending on her response to increase the dosage. The patient has an appointment with Dr. Gipson today. The family will also look for an assisted living for her. They are not looking for residential placement for her now. Discharge instruction Diet regular Activity as started Medications Current Medication(s) 3 Medication Instructions Recorded Confirmed Type Fluticasone Nasal [place] 0.05% 2 spray INH BEDTIME PRN 11/05/15 08/05/17 History [Flonase Nasal [place] 0.05%] Acidophilus/Bulgaricus [Lactinex] 1 tab PO DAILY tab.chew 08/04/17 08/05/17 Rx DULoxetine HCl [Cymbalta] 30 mg PEG DAILY #30 cap 08/04/17 08/05/17 Rx Gabapentin 300 mg PEG QHS #14 cap 08/04/17 08/05/17 Rx Lactobacillus Combination No.8 3,000 mmu cells PO QDAY 08/04/17 08/05/17 Rx [Adult Probiotic] Amlodipine Besylate 5 mg PEG DAILY #90 tab 08/08/17 08/05/17 Rx Cefdinir Cap [Omnicef Cap] 300 mg PEG BID #8 cap 08/08/17 Rx Lansoprazole [Prevacid] 30 mg PEG DAILY #30 suspdr.rec 08/08/17 08/05/17 Rx QUEtiapine Tab [SEROquel Tab] 12.5 mg PEG BEDTIME #30 tab 08/08/17 Rx busPIRone HCL [Buspirone HCl] 5 mg PEG BID tab 08/08/17 Rx metroNIDAZOLE Tab [Flagyl Tab] 500 mg PEG TID #12 tab 08/08/17 Rx Follow-up with PCP 1-2 weeks, with Dr. Gipson as scheduled today Condition at discharge was stable for discharge Exam - Vitals Vital Signs: Vital Signs Temperature 97.7 F Temperature Source Temporal Artery Scan Pulse Rate [Pulse Oximeter] 98 Respiratory Rate 18 Blood Pressure [Left Arm] 141/86 Pulse Ox 98 Oxygen Flow Rate 2 Oxygen Delivery Method Room Air Height 5 ft 5 in Weight 120 lb 8 oz - General General Appearance: No Acute Distress, Cooperative, Thin - Head Head Exam: Normal Inspection, Atraumatic - Eye Eye Exam: POSITIVE: Normal Appearance - ENT ENT Exam: POSITIVE: Normal Exam - Neck Neck Exam: Normal Inspection - Respiratory Respiratory Exam: POSITIVE: Clear to Auscultation - Bilaterally - Cardiovascular Cardiovascular Exam: POSITIVE: RRR - GI/Abdominal GI/Abdominal Exam: POSITIVE: Normal Bowel Sounds, Non Tender, Non Distended, Soft, No Organomegaly Additional GI/Abdominal Exam Details: Peg tube in place - Rectal Rectal Exam: POSITIVE: Deferred - External Exam: POSITIVE: Deferred - Extremities Extremities Exam: POSITIVE: Normal Inspection - Back Back Exam: POSITIVE: Normal Inspection - Neurological Neurological Exam: POSITIVE: Alert, Oriented x 3, CN II-XII Intact, No Facial Droop, Moves All Extremities Equally - Psychiatric Psychiatric Exam: POSITIVE: Normal Affect Patient Problems - Patient Problem List (1) Altered mental status Status: Acute Code(s): R41.82 - Altered mental status, unspecified Category : Medical (2) Anxiety Status: Chronic Onset Date: 06/07/13 Code(s): F41.9 - Anxiety disorder, unspecified Category: Medical (3) Feeding by G-tube Status: Chronic Code(s): Z93.1 - Gastrostomy status Category: Medical (4) Recurrent aspiration pneumonia Status: Chronic Onset Date: 04/29/16 Code(s): J69.0 - Pneumonitis due to inhalation of food and vomit Category: Medical
== END 2017-08-08 10:54 | disposition home or self-care (01) | DRG 689 ==
LOC: ER 08:22 → MED/SURG 12:50
PROVIDERS: ADMIT Internal Medicine; ATTEND Internal Medicine

== ENCOUNTER 2017-08-09 15:45 | Inpatient (IN) ==
[2017-08-09] MEDS ORDERED: NORMAL SALINE 10 ML SYRINGE FLUSH IVP PRN ×2 (16:09→18:24)
[2017-08-09] MEDS ORDERED: Sodium Chloride 0.9% 1,000 ML PRIMARY IV ONE (16:09)
[2017-08-09 16:22] LABS: BASOPHILS # (AUTO) 0.03 10*3/UL; BASOPHILS % (AUTO) 0.3 % (0-1); EOSINOPHILS # (AUTO) 0.03 10*3/UL; EOSINOPHILS % (AUTO) 0.3 % (0-8); Hematocrit [HCT] 39.6 % (37.0-47.0); Hemoglobin [HGB] 13.7 g/dL (12.0-16.0); LYMPHOCYTES # (AUTO) 2.19 10*3/uL; MEAN CORPUSCULAR HEMOGLOBIN 31.5 PG (27-31); MEAN CORPUSCULAR HGB CONC 34.6 g/dL (33-37); MEAN PLATELET VOLUME 9.9 FL (7.4-12.2); MONOCYTES % (AUTO) 8.7 % (5-15); NEUTROPHILS # (AUTO) 6.09 10*3/UL; NEUTROPHILS % (AUTO) 66.7 % (50-80); RED BLOOD COUNT 4.35 10^6/uL (4.20-5.40)
--- NOTE | 2017-08-09 16:22 | PDOC ---
Altered Mental Status HPI - General Chief Complaint: Altered Mental Status Stated Complaint: Confusion Date Seen by Provider: 08/09/17 Time Seen by Provider: 16:10 Source: POSITIVE: Patient, Other (granddaughters) Exam Limitations: POSITIVE: Clinical condition Nurse's Notes Reviewed & Considered: Yes - History of Present Illness Initial Comments: The patient is an 81-year-old female who is brought to the emergency department with worsening confusion. She has been in and out of the hospital twice over the past 10 days. She was initially admitted with increased confusion and found to be hyponatremic and had a urinary tract infection. She was readmitted to the hospital several days later with confusion. At that time it was thought to be possibly related to some changes in her medication. She also had some evidence of aspiration pneumonia and was placed on antibiotics. She was discharged from the hospital yesterday and apparently was doing okay at the time of discharge. She was discharged home on Omnicef and Flagyl. She followed up with the neurologist office in [place] yesterday after being discharged. She normally sees them because of post meningitis medication management as she has a history of meningitis in the past. They made no medication changes. She was started on Seroquel the last night she was here in the hospital which she seemed to tolerate well. Her family states that they gave her dose last night however she did not sleep at all last night. Today she has been very confused. She has been repeatedly feeding herself through her PEG tube whenever she is left unattended. She has not had any known falls. She has had diarrhea. - Patient Home Medications Home Medications: Home Medications Fluticasone Nasal [place] 0.05% [Flonase Nasal [place] 0.05%] 2 spray INH BEDTIME PRN 11/05/15 Acidophilus/Bulgaricus [Lactinex] 1 tab PO DAILY tab.chew 08/04/17 DULoxetine HCl [Cymbalta] 30 mg PEG DAILY #30 cap 08/04/17 Gabapentin 300 mg PEG QHS #14 cap 08/04/17 Lactobacillus Combination No.8 [Adult Probiotic] 3,000 mmu cells PO QDAY Amlodipine Besylate 5 mg PEG DAILY #90 tab 08/08/17 Cefdinir Cap [Omnicef Cap] 300 mg PEG BID #8 cap 08/08/17 Lansoprazole [Prevacid] 30 mg PEG DAILY #30 suspdr.rec 08/08/17 QUEtiapine Tab [SEROquel Tab] 12.5 mg PEG BEDTIME #30 tab 08/08/17 busPIRone HCL [Buspirone HCl] 5 mg PEG BID tab 08/08/17 metroNIDAZOLE Tab [Flagyl Tab] 500 mg PEG TID #12 tab 08/08/17 - Patient Allergies Allergies/Adverse Reactions: Allergies 3 Allergy/AdvReac Type Severity Reaction Status Date / Time Penicillins Allergy Intermediate HIVES Verified 08/09/17 15:53 Past Medical History - heen HEENT History: Denies History, Hard of Hearing Additional HEENT History: Bilateral Hearing aids. usually only wears left Cardiovascular History: Hypertension Respiratory History: Pneumonia, Home CPAP Use Additional Respiratory History: Home CPAP with oxygen at night. No oxygen during day. PNEUMONIA X 4 (LAST 04/2016). SILENT ASPIRATIONS/ PEG TUBE PLACEMENT 07/26 Gastrointestinal History: GERD, Irritable Bowel Syndrome Additional Gastrointestinal History: GASTROPARESIS Genitourinary History: Denies History Endocrine History: Denies History Musculoskeletal History: Arthritis Prosthesis or Implant: Yes (Left hip) Additional Musculoskeletal History: Had Left hip surgery November 2014 Neurological History: Alzheimer's, Meningitis Additional Neurological History: NEUROPATHY. Anxiety. MENINGITIS CAUSED NEUROPAthy. alzheimers diagnosis 2 weeks ago Blood Disorders: Denies History Psychiatric History: Anxiety Disorders Additional Psychiatric History: anxiety History of Sexually Transmitted Diseases: No Cancer History: Denies History History of MDRO: No Other Type of MDRO: bacterial menigitis Jan 2014 History of Other Communicable Diseases: No Alcohol Use: None In the Past 12 Months, Have Used or Abuse Any Substance: None Previous Surgical History: Yes Type / Date of Surgery: LEFT FOOT S FEEDING TUBE/SOPHIE/TONSILLECTOMY/ HYSTERECTOMY, APPENDECTOMY, Left hip surgery, REMOVAL OF PANCREATIC STONE Anesthesia Reactions: No Malignant Hyperthermia: No Significant Family History: No pertinent family hx Past Medical History Reviewed: Reviewed - No Changes ROS - Limitations ROS Limitations: Clinical Condition [place]: DENIES: Chills, Fever Cardiovascular: REPORTS: Denies Cardiac Symptoms Respiratory: REPORTS: Cough Productive (According to the family her cough is been more productive than usual) Neurological: REPORTS: Confusion, Other (Her family reports that she has been complaining of headache although she denies headache currently.) Gastrointestinal: REPORTS: Diarrhea Genitourinary: REPORTS: Other (Family reports decreased urination today.) Eyes: REPORTS: Denies Symptoms. DENIES: Eye Pain, Vision Changes ENT: REPORTS: Other (Her mouth is dry) Skin: DENIES: Rash Altered Mental Physical Exam - General Appearance General Appearance: POSITIVE: Alert, Cooperative, No Acute Distress - HEENT HEENT: POSITIVE: Head Inspection Nml, Eyes Inspection Nml, Other (Mucous membranes are dry, there is some yellowish drainage in the back of her throat) - Neuro/Psych Peripheral Exam: POSITIVE: No Motor Deficits, No Sensory Deficits, Other (The patient does appear confused, she does however follow commands. She was aware that she is in the emergency department and [place], she thought it was Friday and knew that it was July.) - Neck Neck: POSITIVE: Supple. NEGATIVE: Cervical Lymphadenopathy - Respiratory Respiratory: POSITIVE: No Respiratory Distress, Breath Sounds Normal - Cardiovascular CVS: POSITIVE: Regular Rate and Rhythm, Heart Sounds Normal Peripheral Pulses: Dorsalis-pedis (R): 2+, Dorsalis-pedis (L): 2+ - Abdomen Abdomen: Soft: (All Quadrants), Denies Tenderness: (All Quadrants), No Distention: (All Quadrants) Additional Abdominal Details: PEG tube in the left upper abdomen, no surrounding erythema or induration - Skin Skin: POSITIVE: No Rash - Extremities Extremity: Normal ROM: (All Extremities), Normal Inspection: (All Extremities) Altered Mental Status - Results Reviewed By Me Xrays/CTs/US Reviewed: Yes (CT of the head shows no acute intracranial findings per radiologist) Discussed with Radiologist: Yes Lab Results Reviewed by Me: Yes CBC and BMP: 08/09/17 16:10 08/09/17 16:10 EKG Interpreted/Reviewed By Me:: Yes EKG Interpretation:: POSITIVE: Normal Sinus Rhythm, Normal Rate, Normal QRS, Normal ST/T - Patient's Progress MDM / ED Course: Blood cultures and lactate were drawn with the IV start. She received 1 L bolus of normal saline. EKG shows normal sinus rhythm with no acute ST segment changes. Chest x-ray shows no obvious changes when compared to previous per radiologist. CT scan of her head shows no acute intracranial findings per radiologist. Her blood work reveals a normal sodium at 134. Her blood work is all essentially unremarkable, her BUN/creatinine ratio has increased since being discharged yesterday consistent with her clinical findings consistent with dehydration. Because of her diarrhea C. difficile stool sample was ordered however has not yet been collected. The patient presents to the emergency department with worsening confusion and agitation. The cause of this is likely multi factorial. She apparently did not sleep well last night, has current treatment for aspiration pneumonia and UTI, has some component of dehydration and has had multiple medication changes recently. In addition she does have a prior history of meningitis in 2013 and likely has some component of brain injury from that. She does not show any sign of worsening infection at this point with a normal white count, normal CRP and normal lactate. I did discuss briefly with the family long-term treatment considerations and apparently there has been some discussions about assisted living as well as home health and even chcf placement. Apparently home health will not be available for at least 3 weeks and there is no openings in the assisted living that they were looking at. Her granddaughters were discussing the possible need for chcf placement however the patient's daughter will not be home until later tonight and she makes most of the patient's medical decisions. The patient's family state that they are unable to care for her in her current state at home. Decision was made to admit the patient for further care. Dr. Jones has agreed to admit the patient. - Consult Counseled: POSITIVE: Patient, Family, RE: Lab Results, RE: Radiology Results, RE : DX Patient Care Time - Estimated PCT Patient Care Time (In Minutes): 45 Vital Signs - Recent Vital Signs Vital Signs: Vital Signs (Last 8 hours) Temp Pulse Resp BP Pulse Ox 08/09/17 15:54 97.7 F 88 18 142/72 96 - VS Reviewed Vital Signs Reviewed: Yes Discharge Clinical Impression: Altered mental status, Dehydration Condition: Fair Date Decision to Admit to Inpatient: 08/09/17 Time Decision to Admit to Inpatient: 17:30
[2017-08-09 16:27] LABS: PLATELET MORPHOLOGY COMMENT NORMAL MORPHOLOGY (NORM); RBC MORPHOLOGY COMMENT NORMAL MORPHOLOGY (NORM); WBC MORPHOLOGY COMMENT NORMAL MORPHOLOGY (NORM)
[2017-08-09 16:37] LABS: BLOOD UREA NITROGEN 28 mg/dL (7-22); SERUM ALBUMIN 4.3 g/dL (3.5-4.8)
--- NOTE | 2017-08-09 17:14 | DI ---
History: ITS.REASON confusion Physician Notes: Tech Comments: Exam: XR CXR 1 VIEW 2 images to include the entire chest Comparison: 08/05/2017 FINDINGS: The lungs are clear. The cardiac and mediastinal contours are within limits. The visualized osseous structures appear within limits. IMPRESSION: No evidence of acute disease.
--- NOTE | 2017-08-09 17:17 | EKG ---
[address] [address] Measurements Intervals [place] Rate: 83 P: 85 LA: 176 QRS: 64 QRSD: 100 T: 74 QT: 381 QTc: 421 Interpretive Statements SINUS RHYTHM ANTEROSEPTAL MYOCARDIAL INFARCTION [40+ ms Q WAVE IN V1-V4], PROBABLY OLD Compared to ECG 08/05/2017 09:31:02 No significant changes Electronically Signed On 08-11-17 09:08:08 MDT by Luigi Rutledge MD [email or web address]
--- NOTE | 2017-08-09 17:24 | DI ---
History: ITS.REASON confusion Physician Notes: Tech Comments: Exam: CT HEAD Without Contrast Comparison: 08/03/2017 FINDINGS: No intracranial hemorrhage, mass effect or CT evidence of acute infarct. The ventricles are unchanged in size and remain midline. Chronic and involutional changes again noted. No significant change in appearance of paranasal sinusitis. Mastoids and orbits appear within limits. IMPRESSION: No intracranial hemorrhage, mass effect or CT evidence of acute infarct. No significant change in appearance of paranasal sinusitis.
[2017-08-09] MEDS: HALOPERIDOL LACTATE 5 MG/1 ML AMPULE IVP PRN ×3 (18:19→21:08)
[2017-08-09] MEDS ORDERED: ACETAMINOPHEN 325 MG TABLET PO PRN (18:24)
[2017-08-09] MEDS ORDERED: LIDOCAINE W/ SODIUM BICARB 0.5 ML SYR SUBD PRN (18:24)
--- NOTE | 2017-08-09 18:40 | PDOC ---
HPI - History of Present Illness Date of Service: 08/09/17 Time of Service: 18:00 Chief Complaint: Increased confusion History of Present Illness: This is an 81 years old female with medical history significant for history of hypertension, peripheral neuropathy, dementia, history of previous H influenza meningitis, recurrent aspiration pneumonia and history of PEG placement before was brought to the hospital because of change in mental status. This presentation is her third presentation within a week. The first admission she came in and treated for urinary tract infection and hyponatremia was sent home then came back again the next day with increasing confusion she did have some aspiration pneumonia, there was a recent change in the dosage of BuSpar so we cut back on that and we thought maybe it's related to the medication plus the infection plus other stress factor as the usual caregiver is out of town. We did watch here at the hospital the second time longer than the first admission and she seems to do well and at the day of discharge she was at her baseline she wanted to go back home so she was discharged home. We discharge her in addition to treatment for aspiration pneumonia, on Seroquel she had an appointment with her neurologist that day and he okayed the same treatment. Apparently she didn't sleep last night she maybe overfed herself seemed to be more confused so the family brought her back pain. She seemed to be worse compared to the last 3 days that have seen her. No meaningful information can be obtained from her. She is requesting that we call an ambulance for her. Past Medical History Medical History: 1. Hypertension. 2. Idiopathic peripheral neuropathy. 3. Anxiety. 4. H. influenzae meningitis in 2013. 5. History of gastroparesis. 6. Obstructive sleep apnea, on CPAP. 7. Loss of weight, adult. 8. Recurrent aspiration pneumonia. Surgical History: 1. Cholecystectomy 2007. 2. Hysterectomy. 3. Degenerative disc disease status post rhizotomy in 2010. 4. Gallstone pancreatitis with cholecysectomy. 5. appendectomy. 6. Tonsillectomy and adenoidectomy. 7. PEG tube placement 2, most recently July 2016 Pertinent Family History: Congestive heart failure both parents Past Social History: Does not smoke. . Has children, grandchildren and 7 great-grandchildren. Does not drink alcohol. The patient's has dementia. The patient lives here in [place], [place]. Tobacco Use: Never Smoker In the Past 12 Months, Have Used or Abuse Any of the Following Substance: None Medication / Allergies Home Medications: Home Medications 3 Medication Instructions Recorded Confirmed Type Fluticasone Nasal [place] 0.05% 2 spray INH BEDTIME PRN 11/05/15 08/09/17 History [Flonase Nasal [place] 0.05%] Acidophilus/Bulgaricus [Lactinex] 1 tab PO DAILY tab.chew 08/04/17 08/09/17 Rx DULoxetine HCl [Cymbalta] 30 mg PEG DAILY #30 cap 08/04/17 08/09/17 Rx Gabapentin 300 mg PEG QHS #14 cap 08/04/17 08/09/17 Rx Lactobacillus Combination No.8 3,000 mmu cells PO QDAY 08/04/17 08/09/17 Rx [Adult Probiotic] Amlodipine Besylate 5 mg PEG DAILY #90 tab 08/08/17 08/09/17 Rx Cefdinir Cap [Omnicef Cap] 300 mg PEG BID #8 cap 08/08/17 08/09/17 Rx Lansoprazole [Prevacid] 30 mg PEG DAILY #30 suspdr.rec 08/08/17 08/09/17 Rx QUEtiapine Tab [SEROquel Tab] 12.5 mg PEG BEDTIME #30 tab 08/08/17 08/09/17 Rx busPIRone HCL [Buspirone HCl] 5 mg PEG BID tab 08/08/17 08/09/17 Rx metroNIDAZOLE Tab [Flagyl Tab] 500 mg PEG TID #12 tab 08/08/17 08/09/17 Rx Allergies/Adverse Reactions: Allergies 3 Allergy/AdvReac Type Severity Reaction Status Date / Time Penicillins Allergy Intermediate HIVES Verified 08/09/17 17:57 Review of Systems - Review of Systems ROS Unobtainable: Due to Mental Status Exam - Vitals Vital Signs: Vital Signs Height 5 ft 5 in Weight 124 lb - General Additional General Exam Details: looks different from the previous three days, she is confused, irritable - Head Head Exam: Normal Inspection - Eye Eye Exam: POSITIVE: Normal Appearance - ENT ENT Exam: POSITIVE: Normal Exam - Neck Neck Exam: Normal Inspection - Respiratory Respiratory Exam: POSITIVE: Clear to Auscultation - Bilaterally - Cardiovascular Cardiovascular Exam: POSITIVE: RRR - GI/Abdominal GI/Abdominal Exam: POSITIVE: Normal Bowel Sounds, Non Tender, Non Distended, No Organomegaly Additional GI/Abdominal Exam Details: PEG in place - Rectal Rectal Exam: POSITIVE: Deferred - External Exam: POSITIVE: Deferred - Extremities Extremities Exam: POSITIVE: Normal Inspection - Neurological Additional Neurological Exam Details: she is awake but totally different from yesterday, does not fellow all commands , irritable, but moves all extremities. - Psychiatric Psychiatric Exam: POSITIVE: Anxious Results - Labs CBC and BMP: 08/09/17 16:10 08/09/17 16:10 - Imaging Status: Report Reviewed by Me (Chest X ray negative CT:No intracranial hemorrhage, mass effect or CT evidence of acute infarct. No significant change in appearance of paranasal sinusitis.) Assessment and Plan - Patient Problems (1) Altered mental status Current Visit: Yes Status: Acute Comment: This is either delirium or sundowning, she is somewhat restless and I think will put her on haloperidol as needed for agitation. I think I'll increase the dosage of the Seroquel. I think I'll DC the BuSpar. It seems to me that the family are unable to handle her care and I did discuss with the granddaughter that probably his best to go to chcf. They seem to be in agreement. However they're waiting for the main caregiver their mother to be here. Code(s): R41.82 - Altered mental status, unspecified (2) Recurrent aspiration pneumonia Current Visit: No Status: Chronic Onset Date: 04/29/16 Comment: She had aspiration pneumonia last time she was here and we put her antibiotics I think I'll just let her finish the course. X-ray seemed to be improved Code(s): J69.0 - Pneumonitis due to inhalation of food and vomit (3) Hypokalemia Current Visit: Yes Status: Acute Comment: Replace her potassium Code(s): E87.6 - Hypokalemia (4) Hypertension, benign Current Visit: No Status: Chronic Onset Date: 07/19/14 Comment: continue previous med Code(s): I10 - Essential (primary) hypertension
[2017-08-09] MEDS ORDERED: Acetaminophen 1000mg Inj 1,000 MG/100 ML VIAL IV PRN (18:47)
[2017-08-09] MEDS: metroNIDAZOLE Tab 500 MG TAB PO SCH (20:53)
[2017-08-09] MEDS: CEFDINIR 300 MG CAPSULE PO SCH (20:53)
[2017-08-09] MEDS ORDERED: Potassium Chloride 20mEq Packet PO SCH (21:00)
[2017-08-09] MEDS ORDERED: QUEtiapine Tab 25 MG TAB PO SCH (21:00)
[2017-08-10] MEDS ORDERED: HALOPERIDOL LACTATE 5 MG/1 ML AMPULE IVP ONE (00:02)
[2017-08-10] MEDS ORDERED: LIDOCAINE HCL 2 % 10 ML JELLY URO-JECT TOPICAL ONE (03:46)
[2017-08-10] MEDS ORDERED: LIDOCAINE HCL 2 % 10 ML JELLY URO-JECT TOPICAL PRN (03:58)
--- NOTE | 2017-08-10 07:45 | PDOC(PROG) ---
Date and Time of Service: 08/10/2017 7:40 AM Interval History: Subjective She is better today. She is more calm. In terms of her orientation she is off on the month she thought it is July, knew the year, she thought it is Friday when it is Friday. She is wondering how did she end up here in the hospital as she has no recollection. She can count to 10 correctly. She can count from 10 backward correctly. She follows commands. 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 Objective : Data - Labs CBC and BMP: 08/09/17 16:10 08/09/17 16:10 Objective : Exam - General General Appearance: No Acute Distress, Cooperative, Thin - Head Head Exam: Normal Inspection - Eye Eye Exam: Normal Appearance - ENT ENT Exam: Normal Exam - Neck Neck Exam: Normal Inspection - Respiratory Respiratory Exam: Clear to Auscultation - Bilaterally - Cardiovascular Cardiovascular Exam: RRR - GI/Abdominal GI/Abdominal Exam: Normal Bowel Sounds, Non Tender, Non Distended, Soft, No Organomegaly Additional GI/Abdominal Exam Details: PEG tube in place - Rectal Rectal Exam: Deferred - External Exam: Deferred - Extremities Extremities Exam: Normal Inspection - Back Back Exam: Normal Inspection - Neurological Neurological Exam: Alert, CN II-XII Intact, No Facial Droop, Moves All Extremities Equally Additional Neurological Exam Details: She is close to the month she thought it still July on today's August 10, she knew the year. - Psychiatric Psychiatric Exam: Flat Affect - Integumentary Integumentary Exam: Normal Color Assessment and Plan - Patient Problems (1) Altered mental status Current Visit: Yes Status: Acute Comment: Delirium versus ing, she is better today. I think I'll increase the Seroquel to 25 mg twice a day. We took her off the BuSpar. Repeat her chemistry today. Code(s): R41.82 - Altered mental status, unspecified (2) Recurrent aspiration pneumonia Current Visit: No Status: Chronic Onset Date: 04/29/16 Comment: She had aspiration last time she was here, will just finish the course. Code(s): J69.0 - Pneumonitis due to inhalation of food and vomit (3) Hypokalemia Current Visit: Yes Status: Acute Comment: We'll recheck her potassium today Code(s): E87.6 - Hypokalemia (4) Hypertension, benign Current Visit: No Status: Chronic Onset Date: 07/19/14 Comment: Continue amlodipine Code(s): I10 - Essential (primary) hypertension (5) Urinary retention Current Visit: Yes Status: Acute Comment: Maybe secondary to the Haldol, will see whether we can take the catheter out today. We'll remeasure the volume after taking the catheter out. This is apparently the second time it happened, Dr. Ho thought it was related to the Cymbalta though she's been on Cymbalta for a long time, the dosage of Cymbalta was cut to 30 mg a day. Code(s): R33.9 - Retention of urine, unspecified
[2017-08-10 08:18] LABS: BLOOD UREA NITROGEN 11 mg/dL (7-22); BUN/CREATININE RATIO 36.66 (6-20)
[2017-08-10] MEDS: Potassium Chloride 20mEq Packet PO SCH (09:17)
[2017-08-10] MEDS: QUEtiapine Tab 25 MG TAB PO SCH ×2 (09:18→21:28)
[2017-08-10] MEDS: metroNIDAZOLE Tab 500 MG TAB PO SCH ×3 (09:18→21:28)
[2017-08-10] MEDS: LANSOPRAZOLE 30 MG SOLUTAB PO SCH (09:18)
[2017-08-10] MEDS: CEFDINIR 300 MG CAPSULE PO SCH ×2 (09:19→21:28)
[2017-08-10] MEDS: AmLODIPine Tab 5 MG TABLET PO SCH (09:19)
[2017-08-10] MEDS: DULOXETINE 30 MG CAPSULE PO SCH (09:20)
[2017-08-10 11:07] LABS: BILIRUBIN,URINE NEGATIVE (NEG); CLARITY,URINE CLOUDY (CLEAR); COLOR,URINE YELLOW (Y); GLUCOSE, URINE (UA) NEGATIVE (NEG); OCCULT BLOOD,URINE MODERATE (NEG); PROTEIN,URINE NEGATIVE (NEG); UROBILINOGEN,URINE 0.2 EU/dL (0.2)
[2017-08-10 11:15] LABS: RBC,URINE 15-20 /hpf; URINE SAMPLE TYPE CATH SPECIMEN
[2017-08-10 11:16] LABS: BACTERIA,URINE MODERATE; URINE CRYSTALS FEW
[2017-08-10] MEDS: GABAPENTIN 300 MG CAPSULE PO SCH (21:28)
[2017-08-11 05:48] LABS: BLOOD UREA NITROGEN 15 mg/dL (7-22)
[2017-08-11] MEDS: LANSOPRAZOLE 30 MG SOLUTAB PO SCH (08:07)
[2017-08-11] MEDS: Potassium Chloride 20mEq Packet PO SCH (08:07)
[2017-08-11] MEDS: CEFDINIR 300 MG CAPSULE PO SCH ×2 (08:08→20:49)
[2017-08-11] MEDS: QUEtiapine Tab 25 MG TAB PO SCH ×2 (08:08→20:49)
[2017-08-11] MEDS: DULOXETINE 30 MG CAPSULE PO SCH (08:08)
[2017-08-11] MEDS: AmLODIPine Tab 5 MG TABLET PO SCH (08:08)
[2017-08-11] MEDS: metroNIDAZOLE Tab 500 MG TAB PO SCH ×3 (08:08→20:49)
[2017-08-11] MEDS: [UNRECOGNIZED DRUG - OTHER] PEG SCH ×4 (12:01→20:50)
--- NOTE | 2017-08-11 12:14 | PTI REPORT ---
Thank you for the referral of Kellie Bello. She was seen on 08/11/17 for an inpatient evaluation secondary to confusion and generalized weakness. SUBJECTIVE: The patient is an 81-year-old female. The patient reports that she remembers being confused on Friday and was brought back to the hospital. Per family, the patient is becoming more confused toward the end of each day. The family also reports that they are looking into placement into another facility for the patient to receive more daily assistance. Subjective information was gathered during prior admission. The patient reports that she lives in a single story house with her spouse. There are two steps with a handrail to enter. She states that she was previously modified independent using a rollator walker for all mobility. She reports that her spouse has Alzheimer's and her family checks in on them almost daily. She states that her balance has not been the same since she contracted meningitis several years ago, but reports no falls in the past three months. She also states that she has peripheral neuropathy in bilateral feet. The patient reports no pain, dizziness, or nausea at this time. She states that she is very tired this morning and has increased fatigue during ambulation. PAST MEDICAL HISTORY: Past medical history can be found in the patient's medical record. OBJECTIVE FINDINGS: General observations: PT evaluation was initiated in the therapy gym following OT evaluation. The patient was oriented x2 but had difficulty recalling where she was or why she was in the hospital. She appeared very tired during the evaluation by having difficulty keeping her eyes open. She displayed the ability to follow single step commands during the evaluation. Bed mobility: The patient performed bed mobility independently and was able to maintain sitting balance at the edge of the bed independently. Transfers: The patient transferred from sit to stand with contact guard assist and required cues to appropriately lock the brakes on her rollator walker. Strength: The patient displayed decreased strength by having difficulty locking the brakes. Manual muscle testing was the same bilaterally. Knee flexion/ extension and hip flexion were all 4/5. Ankle dorsiflexion was 4-/5. Ambulation: The patient ambulated from the therapy gym to her room, approximately 150 feet with contact guard assist with her rollator walker and cues for posture and keeping the walker closer to her body. The patient displays flexed posture with increased kyphosis and displays decreased step length and hip extension during ambulation. ASSESSMENT: The patient was seen for a physical therapy inpatient evaluation following a hospital admission for severe confusion and generalized weakness. This is her third hospital admission the past week for confusion and the patient appears to be displaying sundowning effect with increased confusion in the evening. The patient would benefit from continued skilled physical therapy in order to return to prior level of function and to promote safety and decrease fall risk. Problem List: Decreased endurance Decreased balance Decreased independence with functional mobility including transfers and ambulation Decreased safety awareness Short-Term Goals: To be met by discharge from inpatient: Patient will be able to perform transfers modified independently using a rollator walker in order to return to prior level of function. Patient will display increased balance and strength by ambulating 200 feet modified independently with rollator walker in order to improve endurance and return to prior level of function. Patient will demonstrate improved safety awareness during treatment sessions by appropriately steering and using the brakes on her rollator walker. Long-Term Goals: To be met following discharge from inpatient: Patient will be seen by outpatient physical therapy. TREATMENT PLAN: Patient will be seen B.I.D during the week and one time per day over the weekend as an inpatient for strengthening and balance exercises, transfer and gait training, and safety education in order to return to prior level of function and decrease fall risk. INITIAL TREATMENT: Treatment today consisted of the initial evaluation followed by lower extremity strengthening exercises x10 each from a sitting position including long arc quads, seated hip flexion, marches with a one pound ankle weight, and hamstring curls with red theraband. The patient ambulated from the therapy gym to her room x150 feet with contact guard assist with rollator walker. At the end of the session the patient transferred to bedside chair with contact guard assist and cues for appropriate sequencing. Alarms were activated. The patient's spouse and her daughter were present in the room. Dictated by: GINO Mccormick Supervised by: ELIN Rhoades
--- NOTE | 2017-08-11 12:28 | OTI REPORT ---
Thank you for the referral of Kellie Bello. She was seen on 08/11/17 for an occupational therapy inpatient evaluation secondary to confusion and generalized weakness. SUBJECTIVE: The patient is an 81-year-old female who is being seen secondary to having increased confusion and also having some aspiration pneumonia on the lungs. She is being treated with antibiotics for the lungs. This is the patient's third admittance in the past week or so. She continually comes in with increased confusion. The patient's family that usually takes care of her was gone over this past week. It sounds like medications and other care have been slightly confused. Per Dr. Jones's notes, it looks like she is coming off of Buspar and he is trialing another medication. The patient may be demonstrating some owning. The patient reports that she had had diarrhea for the last week or so which she normally does not have. Her nurse stated that they did test her for c.diff, but she was negative for that. PAST MEDICAL HISTORY: Past medical history can be found in the patient's medical record. OBJECTIVE FINDINGS: General observations: The patient did know that it was August 11, 2017 and that yesterday was Easter. She did know her name and her birthday. Range of motion: Today the patient had within functional limits for active range of motion. Strength: Strength in bilateral upper extremities was 4/5. Balance: The patient required min assist to come to the end of the bed while sitting edge of bed. Cognition: In the past the patient has had cognitive assessments which put her in the MILD cognitive impairment range, right above the MODERATE cognitive impairment. We will complete a cognitive assessment later. Activities of daily living: The patient was able to don and doff lower extremity clothing with contact guard assist once standing. She does get slightly confused with step by step instructions, but she was able to correct herself with lower extremity dressing. The patient was able to complete a toilet transfer with contact guard assist and was able to complete toilet hygiene independently. She was independent with upper extremity dressing after set up. Ambulation: The patient does use a four wheeled walker in order to ambulate. She does tend to have a slightly kyphotic position when standing with the walker. ASSESSMENT: This is the patient's third admission in a little over a week. Dr. Jones did take her off of her Buspar and replaced this with some medication for . She does have increased confusion more so at night than the day. The patient did demonstrate some confusion when walking down to therapy, this is usually a typical path for her, but she continually wanted to go to the left instead of the right. There may be some more subtle memory difficulties with the patient, especially with any new tasks. The patient did state that she and her family are looking into an assisted living type facility. This is probably more of what the patient will need for safety and increased independence. Problem List: Increased confusion Generalized weakness Short-Term Goals: To be met by discharge from inpatient: Patient will complete a cognitive performance test. Patient will increase upper extremity strength to 4+/5 to improve independence with her functional transfers. Patient will be able to complete a shower independently. Patient will be able to complete functional standing tasks and reaching tasks in order to improve her independence. Long-Term Goals: To be met following discharge from inpatient: Patient will have close to 24-hour care, possibly with an assistive living facility in order to be safe and as independent as possible. TREATMENT PLAN: Patient will be seen B.I.D during the week and one time per day over the weekend as an inpatient to address the above goals and objectives. INITIAL TREATMENT: Treatment today consisted of the initial evaluation followed by the patient performing ADLs. The patient was able to come from supine to sit. She needed cues to come to the edge of the bed as she kept leaning backwards when trying to dress self. She dressed her upper extremities independently after set up. She completed a toilet transfer with contact guard assist and was independent with toilet hygiene. The patient walked to the chair to don and doff clothes with contact guard assist for balance when standing. She was able to stand at sink x5 minutes with contact guard assist to complete hygiene activities including brushing hair, brushing teeth, and washing face. Downstairs in therapy we worked on upper extremity strengthening with 1.5 kilograms for biceps , rows, shoulder extension, adduction, and internal/external rotation x15 repetitions each. EMILY
--- NOTE | 2017-08-11 13:53 | PDOC(PROG) ---
Interval History: Patient has no complaints looks great she is call was readmitted after she was sent home the other day family the daughter is here which is the power of business attorney and is looking for jail placement referral was made denies nausea vomiting chest pain Objective : Data - Labs CBC and BMP: 08/09/17 16:10 08/11/17 04:15 Objective : Exam - Respiratory Respiratory Exam: Clear to Auscultation - Bilaterally, Breathing Non Labored, Normal To Percussion, Normal to Percussion and Palpation - Cardiovascular Cardiovascular Exam: RRR, No Murmur, No Clicks, No Gallops, No Rubs, PMI Non- Displaced - GI/Abdominal GI/Abdominal Exam: Normal Bowel Sounds, Non Tender, Non Distended, Soft, No Masses, No Hepatomegaly, No Splenomegaly, No Organomegaly Assessment and Plan - Patient Problems (1) Hypertension, benign Current Visit: No Status: Chronic Onset Date: 07/19/14 Comment: Stable at present time Code(s): I10 - Essential (primary) hypertension (2) Recurrent aspiration pneumonia Current Visit: No Status: Chronic Onset Date: 04/29/16 Comment: On antibiotics patient has a PEG tube Code(s): J69.0 - Pneumonitis due to inhalation of food and vomit (3) Altered mental status Current Visit: Yes Status: Acute Comment: Stable now on [facility] jail placement as per family members should unable take care of herself and her with Alzheimer's Code(s): R41.82 - Altered mental status, unspecified (4) Hypokalemia Current Visit: Yes Status: Acute Comment: Placed on supplements Code(s): E87.6 - Hypokalemia (5) Urinary retention Current Visit: Yes Status: Acute Comment: Resolved Cymbalta was cut in half Code(s): R33.9 - Retention of urine, unspecified
--- NOTE | 2017-08-11 16:51 | OT.PROG ---
Progress Note Progress Note: S: pt reports that she wants to get stronger so that she can go to assisted living. O: pt was seen in her room and completed bed mobility Ind. She then transferred downstairs where she completed Nu step for 8 min to increase activity tolerance. She then transferred to mat table Ind and completed PT. After completing PT she transferred Ind to wall pulleys completing all ranges x10 to increase UE strength. She was returned to her room and nursing notified of her return. A: pt participated well and displays good strenght and balance with use of walker. P: continue per POC.
--- NOTE | 2017-08-11 17:36 | PT.PROG ---
Progress Note Progress Note: S. Patient stated that she is tired this afternoon. She reports that she is not feeling up to doing much after working with OT. O. Patient ambulated 175 feet to the therapy gym where she performed seated exercises in the form of; marches, long arc quads, heel toe raises, ball squeezes, and clam shells all x 10 bilaterally with red thera band and 2#. Patient used the nu-step x 8 minutes, then ambulated 175 feet back to her room. A. Patient tolerated exercise fair, she continues to be weak and require mod verbal cues with direction and staying on task. Patient would continue to benefit from skilled therapy to increase strength and endurance. P. Continue POC.
[2017-08-11] MEDS: GABAPENTIN 300 MG CAPSULE PO SCH (20:49)
[2017-08-12] MEDS: [UNRECOGNIZED DRUG - OTHER] PEG SCH ×6 (05:49→20:38)
[2017-08-12] MEDS: QUEtiapine Tab 25 MG TAB PO SCH ×2 (09:10→20:39)
[2017-08-12] MEDS: metroNIDAZOLE Tab 500 MG TAB PO SCH ×3 (09:11→20:39)
[2017-08-12] MEDS: Potassium Chloride 20mEq Packet PO SCH (09:11)
[2017-08-12] MEDS: DULOXETINE 30 MG CAPSULE PO SCH (09:11)
[2017-08-12] MEDS: AmLODIPine Tab 5 MG TABLET PO SCH (09:11)
[2017-08-12] MEDS: LANSOPRAZOLE 30 MG SOLUTAB PO SCH (09:11)
--- NOTE | 2017-08-12 09:35 | OT.PROG ---
Progress Note Progress Note: occupational Therapy: 30 min S: pt stated she was ready for her shower. O: pt completed functional ambulation with 4WW and CGA for safety x 70'. pt completed doffing of UE and LE with MIN VCs for safety. pt completed ADL task of showering. pt needed MIN A for standing and walking to shower. pt completed hair washing Independently. pt completed body washing with MIN VCs to wash all parts of the body and to ask for help when standing to completed body washing. pt independent in drying anterior body. pt needed MOD A for drying posterior body. pt completed donning UE and LE independently with MIN A for standing to complete LE dressing. A: pt is slightly impulsive to stand when using the shower and dressing. pt needed reminders to ask for help when needed and for safety. P: continue POC
--- NOTE | 2017-08-12 11:22 | PDOC(PROG) ---
Interval History: Doing well no complaints patient has not had any episodes of irritability no complaints sitting in bed comfortably with daughter next to her Objective : Data - Labs CBC and BMP: 08/09/17 16:10 08/11/17 04:15 Objective : Exam - Respiratory Respiratory Exam: Clear to Auscultation - Bilaterally, Breathing Non Labored, Normal To Percussion, Normal to Percussion and Palpation - Cardiovascular Cardiovascular Exam: RRR, No Murmur, No Clicks, No Gallops, No Rubs, PMI Non- Displaced Assessment and Plan - Patient Problems (1) Hypertension, benign Current Visit: No Status: Chronic Onset Date: 07/19/14 Code(s): I10 - Essential (primary) hypertension (2) Recurrent aspiration pneumonia Current Visit: No Status: Chronic Onset Date: 04/29/16 Code(s): J69.0 - Pneumonitis due to inhalation of food and vomit (3) Altered mental status Current Visit: Yes Status: Acute Code(s): R41.82 - Altered mental status, unspecified (4) Hypokalemia Current Visit: Yes Status: Acute Code(s): E87.6 - Hypokalemia (5) Urinary retention Current Visit: Yes Status: Acute Code(s): R33.9 - Retention of urine, unspecified - Assessment / Plan Additional Assessment/Plan Details: #1 Anxiety irritability and depression stable now on Seroquel and Cymbalta social service still actively looking for custodial placement since patient cannot take care of herself 24 7 continue feedings via PEG tube
--- NOTE | 2017-08-12 15:49 | OT.PROG ---
Progress Note Progress Note: S: pt states she is hoping to be able to go to assisted living. She understands she has to get better to go there. O: pt was seen for therapy in the pm. She completed 6 min On nU step to increase her activity tolerance. She then completed exercises with cane with 4 # x20 to increase Ue strength and finished with around [place] with RTB x20 in ea planes. A: pt participates well and may continue to strengthen. She transfers well with use of walker. P: continue per POC.
--- NOTE | 2017-08-12 16:32 | PT.PROG ---
Progress Note Progress Note: S. Patient stated that she is tired this morning however would like to go for a walk. O. Patient ambulated 300 feet around the nurses station then performed seated exercises in the form of; long arc quads, marches, pillow squeezes and sit to stands all x 10 bilaterally. Patient was left in her chair with alarm and call light. A. Patient tolerated therapy well this morning, she began to fatigue during sit to stands however was able to recover with a short seated rest break. She requires verbal cues for direction. She would continue to benefit from skilled therapy to increase strength, balance and endurance. P. Continue POC.
--- NOTE | 2017-08-12 16:39 | PT.PROG ---
Progress Note Progress Note: S. Patient stated that she is feeling good this afternoon. O. Patient ambulated 175 feet to the therapy gym where she used the nu-step x 12 minutes, then performed seated exercises in the form of; long arc quads, marches ball squeezes, clam shells, resisted knee flexion all x 20 with 2# and red theraband. Patient ambulated 175 feet back to her room where she was left in her chair with alarm and call light. A. Patient tolerated therapy well this afternoon, she continues to require frequent verbal cues to stay on task and for direction to get back to her room, She is making gains with strength and mobility at this time. She would continue to benefit from skilled therapy. P. Continue POC.
[2017-08-12] MEDS: GABAPENTIN 300 MG CAPSULE PO SCH (20:38)
[2017-08-13] MEDS: [UNRECOGNIZED DRUG - OTHER] PEG SCH ×6 (05:00→21:49)
[2017-08-13] MEDS: DULOXETINE 30 MG CAPSULE PO SCH (08:40)
[2017-08-13] MEDS: Potassium Chloride 20mEq Packet PO SCH (08:40)
[2017-08-13] MEDS: QUEtiapine Tab 25 MG TAB PO SCH ×2 (08:41→21:49)
[2017-08-13] MEDS: AmLODIPine Tab 5 MG TABLET PO SCH (08:41)
[2017-08-13] MEDS: LANSOPRAZOLE 30 MG SOLUTAB PO SCH (08:41)
--- NOTE | 2017-08-13 10:49 | PDOC(PROG) ---
Interval History: Patient seen has no complaints discussed with nursing overnight she was calling the nurses constantly also trying to call home in the late hours of night. She is not confused at present time Objective : Data - Labs CBC and BMP: 08/09/17 16:10 08/11/17 04:15 Objective : Exam - General General Appearance: No Acute Distress, Cooperative - Head Head Exam: Normal Inspection, Normocephalic, Atraumatic - Respiratory Respiratory Exam: Clear to Auscultation - Bilaterally, Breathing Non Labored, Normal To Percussion, Normal to Percussion and Palpation - Cardiovascular Cardiovascular Exam: RRR, No Murmur, No Clicks, No Gallops, No Rubs, PMI Non- Displaced - GI/Abdominal GI/Abdominal Exam: Normal Bowel Sounds, Non Tender, Non Distended, Soft, No Masses, No Hepatomegaly, No Splenomegaly, No Organomegaly - Extremities Extremities Exam: No Clubbing Present, No Edema Present, No Cyanosis Present Assessment and Plan - Patient Problems (1) Hypertension, benign Current Visit: No Status: Chronic Onset Date: 07/19/14 Comment: Stable at present time Code(s): I10 - Essential (primary) hypertension (2) Recurrent aspiration pneumonia Current Visit: No Status: Chronic Onset Date: 04/29/16 Comment: Tube feedings via PEG tube Flagyl as been discontinued Code(s): J69.0 - Pneumonitis due to inhalation of food and vomit (3) Altered mental status Current Visit: Yes Status: Acute Comment: Stable at present time patient is on Cymbalta, Seroquel Code(s): R41.82 - Altered mental status, unspecified (4) Hypokalemia Current Visit: Yes Status: Acute Comment: Replaced Code(s): E87.6 - Hypokalemia (5) Urinary retention Current Visit: Yes Status: Acute Comment: Resolved we did cut her Cymbalta to [address] Gipson as well Code(s): R33.9 - Retention of urine, unspecified - Assessment / Plan Additional Assessment/Plan Details: Patient is medically stable is awaiting [facility] we'll deferred us to social service
--- NOTE | 2017-08-13 12:17 | OT.PROG ---
Progress Note Progress Note: S: pt reports she knows she has to get stronger. O: pt was seen in her room completing bed mobility ind and donned shoes Ind and completed transfer entire way to therapy. She completed 8 min on arm bike to increase activity tolerance. She then transferred to mat table where she completed balance activities with and without walker. She completed sit to stands with 0# and 2# ball x10 to increase ability to completed such transition. pt was returned to her room and completed bed mobility INd. She was left upright with call light within reach and bed alarm on. A: pt may continue to benefit from therapy to increase strength. She may benefit from 24 hr care at this point, possibly care center if she is not ready for assisted living. P: continue per POC.
--- NOTE | 2017-08-13 12:20 | PT.PROG ---
Progress Note Progress Note: S. Patient stated that she is feeling alright this morning. O. Patient ambulated 175 feet to the therapy gym where she used the nu-step x 10 minutes, then performed seated exercises in the form of; long arc quads, marches, ball squeezes, clam shells, #2 box and #3 box all x 10 bilaterally. Patient ambulated 175 feet back to her room where she was left with alarm and call light. A. Patient tolerated therapy well this morning, she continues to require frequent verbal cues to complete all exercises and to remember how to get back to her room. She would continue to benefit from 24 hour care at this time. P. Continue POC.
--- NOTE | 2017-08-13 14:50 | PT.PROG ---
Progress Note Progress Note: S. Patient stated that she is tired this afternoon however agreed to go to the therapy gym. O. Patient ambulated 175 feet to the therapy gym where she performed seated exercises in the form of; heel slides, straight leg raises, hip abduction/ adduction, long arc quads, marches, ball squeezes, clam shells, resisted knee flexion, all x 10 bilaterally with 3# on the right leg. Patient ambulated 175 feet back to her room where she was left with alarm and call light. A. Patient tolerated therapy fair, she was unable to perform exercises on her left leg this afternoon, she continues to be weak and require frequent cues for safety and awareness, Patient would continue to benefit from skilled therapy at this time. P. Continue POC.
--- NOTE | 2017-08-13 17:11 | OT.PROG ---
Progress Note Progress Note: S: pt reports that she thinks she has to go to [place] before going to assisted living. O: pt was seen in her room and completed transfer downstairs with walker INd. She completed 10 min on Nu step to increase activity tolerance. She also completed hurdles to increase her balance. She completed Ue exercise with RTB in bicep flex, shoulder flex and rows x15 with BUE's to increase strength. A: pt participates well may benefit from 24 hr care. P: continue per POC.
[2017-08-13] MEDS: GABAPENTIN 300 MG CAPSULE PO SCH (21:49)
[2017-08-14] MEDS: [UNRECOGNIZED DRUG - OTHER] PEG SCH ×3 (06:50→13:24)
[2017-08-14 06:52] VITALS: RESP 17
[2017-08-14] MEDS: DULOXETINE 30 MG CAPSULE PO SCH (10:23)
[2017-08-14] MEDS: AmLODIPine Tab 5 MG TABLET PO SCH (10:23)
[2017-08-14] MEDS: Potassium Chloride 20mEq Packet PO SCH (10:23)
[2017-08-14] MEDS: QUEtiapine Tab 25 MG TAB PO SCH (10:24)
[2017-08-14] MEDS: LANSOPRAZOLE 30 MG SOLUTAB PO SCH (10:24)
[2017-08-14 11:12] VITALS: BP 140/66; TEMP 97.3; O2SAT 93
--- NOTE | 2017-08-14 12:28 | PT.PROG ---
Progress Note Progress Note: S. Patient stated that she is feeling good this morning, she reports that she would like to go to therapy. O. patient ambulated 175 feet to the therapy gym where she used the nu-step x 10 minutes then performed seated long arc quads, marches, ball squeezes, clam shells, resisted knee flexion ball squeezes all x 15 bilaterally. Patient ambulated 175 feet back to her room where she was left with alarm and call light. A. Patient tolerated therapy well this morning, she continues to require frequent verbal cues to stay on task and for directions to get to and from therapy. Patient would continue to benefit from 24 hour care at this time. P. continue POC.
--- NOTE | 2017-08-14 12:32 | DCSUMMARY ---
Hospitalization Summary Hospital Course: Final Discharge Diagnosis: Current Visit Problems Problem Status Onset Code Altered mental status Acute R41.82 Dehydration Acute E86.0 Hypokalemia Acute E87.6 Urinary retention Acute R33.9 Diagnostic Data, Laboratory Data, and Procedures of Signifigance: CBC and BMP 08/09/17 16:10 08/11/17 04:15 History and Physical pertinent to Admission: Past Medical History Medical History: 1. Hypertension. 2. Idiopathic peripheral neuropathy. 3. Anxiety. 4. H. influenzae meningitis in 2013. 5. History of gastroparesis. 6. Obstructive sleep apnea, on CPAP. 7. Loss of weight, adult. 8. Recurrent aspiration pneumonia. Surgical History: 1. Cholecystectomy 2007. 2. Hysterectomy. 3. Degenerative disc disease status post rhizotomy in 2010. 4. Gallstone pancreatitis with cholecysectomy. 5. appendectomy. 6. Tonsillectomy and adenoidectomy. 7. PEG tube placement 2, most recently July 2016 Pertinent Family History: Congestive heart failure both parents Past Social History: Does not smoke. . Has children, grandchildren and 7 great-grandchildren. Does not drink alcohol. The patient's has dementia. The patient lives here in [place], [place]. Tobacco Use: Never Smoker In the Past 12 Months, Have Used or Abuse Any of the Following Substance: None Course of Hospitalization: This very nice 81-year-old female with past medical history significant for severe dementia, peripheral neuropathy, anxiety and depression recurrent aspiration pneumonia and PEG tube placement she had multiple admissions to the hospital for mental status changes the first time she came in and it was for urinary tract infection and hyponatremia this resolved patient was stable and demanded to be discharged home also Comes back the day after with the more mental status changes and a rather erratic behavior she has seen Dr. ewing which the agreed with cutting back on the Cymbalta and BuSpar since it was causing the urinary retention the plan was for her to be going to the custodial for 24-hour care according to the son and granddaughter but apparently and they were discharged home and now on baseline on Seroquel but was readmitted the quickly after a couple days because she did not seem herself and they were not able to take care of her she's been doing quite well during her hospital stay with the Seroquel and her other medications she does well when she does not have to take care of her elderly with the also dementia and Parkinson's and is well taking care of 24 7 she was accepted to the custodial today at [facility] she will be discharged in stable and improved condition. She did finish her course of antibiotic for mild aspiration pneumonia. Patient has no complaints is very happy to be going to [facility] all family in agreement discussed with nursing On the date of discharge, the patient was examined: Gen.: No acute distress, alert, nontoxic Heart: Regular rate and rhythm, no murmurs, clicks, gallops, or rubs Lungs: Clear to auscultation bilaterally, breathing is nonlabored Abdomen/GI: Normal tones on auscultation, soft, nontender, nondistended Musculoskeletal/extremities: No clubbing, cyanosis, or edema Vitals reviewed and are listed below Assessment and Plan: 1. As per discharge assessments above 2. Disposition: [facility] 3. Condition on discharge, stable and improved. 4. Diet: regular diet 5. Activities: resume normal activities 6. Follow-Up: 1. PCP 2. 7. Medications at the Time of Discharge: Home Medications 3 Medication Instructions Recorded Confirmed Type Fluticasone Nasal [place] 0.05% 2 spray INH BEDTIME PRN 11/05/15 08/09/17 History [Flonase Nasal [place] 0.05%] Acidophilus/Bulgaricus [Lactinex] 1 tab PO DAILY tab.chew 08/04/17 08/09/17 Rx DULoxetine HCl [Cymbalta] 30 mg PEG DAILY #30 cap 08/04/17 08/09/17 Rx Gabapentin 300 mg PEG QHS #14 cap 08/04/17 08/09/17 Rx Lactobacillus Combination No.8 3,000 mmu cells PO QDAY 08/04/17 08/09/17 Rx [Adult Probiotic] Amlodipine Besylate 5 mg PEG DAILY #90 tab 08/08/17 08/09/17 Rx Lansoprazole [Prevacid] 30 mg PEG DAILY #30 suspdr.rec 08/08/17 08/09/17 Rx busPIRone HCL [Buspirone HCl] 5 mg PEG BID tab 08/08/17 08/09/17 Rx Acetaminophen [Tylenol] 650 mg PO Q6H PRN tab 08/14/17 Rx Potassium Chloride Packet [K-Marisol 20 meq PO DAILY packet 08/14/17 Rx Packet] QUEtiapine Tab [SEROquel Tab] 25 mg PO BID tab 08/14/17 Rx 8. Time, care, counseling and coordination of care for this discharge is greater than 30 minutes. Exam - Vitals Vital Signs: Vital Signs Temperature 97.3 F Temperature Source Temporal Artery Scan Pulse Rate [Apical] 82 Pulse Rate [Pulse Oximeter] 76 Respiratory Rate 17 Blood Pressure [Left Arm] 140/66 Pulse Ox 93 Oxygen Flow Rate 2 Oxygen Delivery Method Room Air Height 5 ft 5 in Weight 120 lb 6.4 oz Patient Problems - Patient Problem List (1) Hypertension, benign Current Visit: No Status: Chronic Onset Date: 07/19/14 Code(s): I10 - Essential (primary) hypertension Category: Medical (2) Recurrent aspiration pneumonia Current Visit: No Status: Chronic Onset Date: 04/29/16 Code(s): J69.0 - Pneumonitis due to inhalation of food and vomit Category: Medical (3) Altered mental status Current Visit: Yes Status: Acute Code(s): R41.82 - Altered mental status, unspecified Category: Medical (4) Hypokalemia Current Visit: Yes Status: Acute Code(s): E87.6 - Hypokalemia Category: Medical (5) Urinary retention Current Visit: Yes Status: Acute Code(s): R33.9 - Retention of urine, unspecified Category: Medical
--- NOTE | 2017-08-14 14:57 | OT.PROG ---
Progress Note Progress Note: Occupational Therapy: 20 min S: pt stated she was doing fine and was ready fro therapy. O: pt completed functional ambulation with 4WW and CGA for safety x185'. pt completed yellow TB exercises of biceps curls x 15, triceps x15, chest pulls x15 , flexion x15, extension x15. pt completed 2# BUE exercises of chest press x15, biceps curls x15, shoulder flexion x15. pt completed sit to stands x10 min. A: pt tolerated session well. P: continue POC
--- NOTE | 2017-08-14 16:28 | PT.PROG ---
Progress Note Progress Note: S. Patient stated that she is feeling good this afternoon. O. Patient used the nu-step x 10 minutes, then performed seated exercises in the form of; long arc quads, marches, ball squeezes, clam shells, resisted knee flexion all x 15 with 3#. Patient performed 10 sit to stand then ambulated 175 feet to her room where she was left with alarm and call light. A. Patient continues to tolerate therapy well, she was unable to complete more exercises due to pain in her hip. Patient would continue to benefit from 24 hour care at this time. P. Continue POC.
== END 2017-08-14 16:05 | DRG 947 ==
LOC: ER 15:45 → MED/SURG 17:27
PROVIDERS: ADMIT Internal Medicine; ATTEND Internal Medicine

== ENCOUNTER 2017-11-04 21:53 | Observation (INO) ==
[2017-11-04] MEDS ORDERED: Sodium Chloride 0.9% 1,000 ML PRIMARY IV ONE (22:09)
[2017-11-04 22:22] LABS: BASOPHILS # (AUTO) 0.02 10*3/UL; BASOPHILS % (AUTO) 0.2 % (0-1); EOSINOPHILS # (AUTO) 0.03 10*3/UL; EOSINOPHILS % (AUTO) 0.3 % (0-8); Hematocrit [HCT] 39.2 % (37.0-47.0); Hemoglobin [HGB] 13.4 g/dL (12.0-16.0); LYMPHOCYTES # (AUTO) 2.55 10*3/uL; MEAN CORPUSCULAR HEMOGLOBIN 31.9 PG (27-31); MEAN CORPUSCULAR HGB CONC 34.2 g/dL (33-37); MEAN CORPUSCULAR VOLUME 93.3 FL (81-99); MEAN PLATELET VOLUME 10.4 FL (7.4-12.2); MONOCYTES % (AUTO) 6.5 % (5-15); NEUTROPHILS # (AUTO) 6.09 10*3/UL; NEUTROPHILS % (AUTO) 65.5 % (50-80); PLATELET MORPHOLOGY COMMENT NORMAL MORPHOLOGY (NORM); RBC MORPHOLOGY COMMENT NORMAL MORPHOLOGY (NORM); WBC MORPHOLOGY COMMENT NORMAL MORPHOLOGY (NORM)
[2017-11-04 22:23] LABS: BLOOD UREA NITROGEN 29 mg/dL (7-22); SERUM ALBUMIN 4.3 g/dL (3.5-4.8)
--- NOTE | 2017-11-04 22:29 | EKG ---
[address] [place] [address] Measurements Intervals [place] Rate: 63 P: 72 ME: 194 QRS: 22 QRSD: 92 T: 72 QT: 409 QTc: 416 Interpretive Statements SINUS RHYTHM POSSIBLE RIGHT VENTRICULAR CONDUCTION DELAY [RSR (QR) IN V1/V2] POSSIBLE INFERIOR MYOCARDIAL INFARCTION OF INDETERMINATE AGE SLOW R WAVE PROGRESSION V1-V3, POSSIBLE ANTEROSEPTAL INFARCT, AGE UNDETERMINED Compared to ECG 08/09/2017 17:16:50 No significant changes Electronically Signed On 11-05-17 11:41:19 MDT by Montana Richter [email or web address]
--- NOTE | 2017-11-04 23:27 | DI ---
EXAM: CT Head Without Intravenous Contrast CLINICAL HISTORY: ITS.REASON seizure Physician Notes: Tech Comments: TECHNIQUE: Axial computed tomography images of the head/brain without intravenous contrast. COMPARISON: CT 08/09/17 FINDINGS: Brain: No hemorrhage. No edema. Atrophy with small vessel disease. Ventricles: No ventriculomegaly. Bones/joints: No acute fracture. Soft tissues: Unremarkable. Sinuses: Sinus mucosal thickening - mild debris. Mastoid air cells: No mastoid effusion. IMPRESSION: No acute findings. MRI is more sensitive if warranted.
[2017-11-05 00:05] LABS: AMPHETAMINE SCREEN NEGATIVE (NEG); CANNABINOID SCREEN,URINE NEGATIVE (NEG); COCAINE SCREEN NEGATIVE (NEG); METHADONE URINE SCREEN NEGATIVE (NEG); METHAMPHETAMINES SCREEN,URINE NEGATIVE (NEG); OPIATE SCREEN,URINE NEGATIVE (NEG); URINE SAMPLE TYPE CATH SPECIMEN; URINE SPECIFIC GRAVITY - MAN 1.028
--- NOTE | 2017-11-05 00:11 | PDOC ---
Seizure HPI - General Chief Complaint: Neurological Complaints Stated Complaint: SEIZURE Date Seen by Provider: 11/04/17 Time Seen by Provider: 21:55 Source: POSITIVE: Patient, RN/MD, EMS, Other (daughter) Exam Limitations: POSITIVE: No limitations Nurse's Notes Reviewed & Considered: Yes EMS Report Reviewed & Considered: Verbal - History of Present Illness Body Location Affected: REPORTS: Other (Seizure reported by nursing staff at [facility], "grand mal") Timing: REPORTS: Abrupt, Improved Duration: Other (Patient's daughter reports that the patient's son and noted 2 episodes of "shaking all over" and unresponsiveness which lasted less than a minute. They notified the nurse at [facility] who reportedly witnesses state third episode. Upon arrival to the emergency room patient is asymptomatic and is not post ictal) Severity: Moderate Quality: REPORTS: Other (Patient denies any pain anywhere) Seizure Began at (time): 21:00 Most Recent Seizure Episode: 11/04/17 Witnessed Seizure?: Yes (son, daughter, nurse at [facility]) Preceding Symptoms/Context (specify in comments): REPORTS: Changed Med or Dosage (Ativan which he patient was apparently taking for anxiety was discontinued recently and the patient had her dose of risperidone doubled yesterday) Character of Seizure(s): REPORTS: Completely Unresponsive, Gen. "Shaking all Over". DENIES: Incontinent of Urine, Incontinent of Stool Post-ictal Symptoms: REPORTS: None Any Prior Injuries Related to Current Complaint?: Yes (hospitalized recently for altered consciousness and confusion) - Patient Home Medications Home Medications: Home Medications Fluticasone Nasal [place] 0.05% [Flonase Nasal [place] 0.05%] 2 spray INH BEDTIME PRN 11/05/15 Acidophilus/Bulgaricus [Lactinex] 1 tab PO DAILY tab.chew 08/04/17 DULoxetine HCl [Cymbalta] 30 mg PEG DAILY #30 cap 08/04/17 Gabapentin 300 mg PEG QHS #14 cap 08/04/17 Lactobacillus Combination No.8 [Adult Probiotic] 3,000 mmu cells PO QDAY Amlodipine Besylate 5 mg PEG DAILY #90 tab 08/08/17 Lansoprazole [Prevacid] 30 mg PEG DAILY #30 suspdr.rec 08/08/17 busPIRone HCL [Buspirone HCl] 5 mg PEG BID tab 08/08/17 Potassium Chloride Packet [K-Marisol Packet] 20 meq PO DAILY packet 08/14/17 sulfamethoxazole 200 mg-trimethoprim 40 mg/5 mL oral suspension 40 ml PO BID # 800 ml 09/09/17 doxycycline hyclate 50 mg capsule 50 mg PO BID #14 cap 09/24/17 quetiapine 25 mg tablet 50 mg PO QHS #30 tab 10/14/17 sertraline 100 mg tablet 100 mg PO QDAY #30 tab 10/14/17 - Patient Allergies Allergies/Adverse Reactions: Allergies 3 Allergy/AdvReac Type Severity Reaction Status Date / Time Penicillins Allergy Intermediate HIVES Verified 10/10/17 14:36 Past Medical History - heen HEENT History: Denies History, Hard of Hearing Additional HEENT History: Bilateral Hearing aids. usually only wears left Cardiovascular History: Hypertension Respiratory History: Home CPAP Use, Pneumonia Additional Respiratory History: Home CPAP with oxygen at night. No oxygen during day. PNEUMONIA X 4 (LAST 04/2016). SILENT ASPIRATIONS/ PEG TUBE PLACEMENT 07/26 Gastrointestinal History: GERD, Irritable Bowel Syndrome Additional Gastrointestinal History: GASTROPARESIS Genitourinary History: Denies History Endocrine History: Denies History Musculoskeletal History: Arthritis Prosthesis or Implant: Yes (Left hip) Additional Musculoskeletal History: Had Left hip surgery November 2014 Neurological History: Alzheimer's, Meningitis Additional Neurological History: NEUROPATHY. Anxiety. MENINGITIS CAUSED NEUROPAthy. alzheimers diagnosis 2 weeks ago Blood Disorders: Denies History Psychiatric History: Anxiety Disorders Additional Psychiatric History: anxiety History of Sexually Transmitted Diseases: No Cancer History: Denies History History of MDRO: No Other Type of MDRO: bacterial menigitis Jan 2014 History of Other Communicable Diseases: No Alcohol Use: None In the Past 12 Months, Have Used or Abuse Any Substance: None Previous Surgical History: Yes Type / Date of Surgery: LEFT FOOT S FEEDING TUBE/SOPHIE/TONSILLECTOMY/ HYSTERECTOMY, APPENDECTOMY, Left hip surgery, REMOVAL OF PANCREATIC STONE Anesthesia Reactions: No Malignant Hyperthermia: No Significant Family History: No pertinent family hx Past Medical History Reviewed: Reviewed - No Changes ROS - Limitations ROS Limitations: No Limitations Constitution: REPORTS: Denies Symptoms Cardiovascular: REPORTS: Denies Cardiac Symptoms Respiratory: REPORTS: Denies Resp Symptoms Neurological: REPORTS: Seizure Activity (As above) Gastrointestinal: REPORTS: Denies GI Symptoms Endocrine: REPORTS: Denies Symptoms Musculoskeletal: REPORTS: Denies MS Symptoms Genitourinary: REPORTS: Denies Symptoms Eyes: REPORTS: Denies Symptoms ENT: REPORTS: Denies Symptoms Skin: REPORTS: Denies Skin Symptoms Lympathic: REPORTS: Denies Lympathic Symptoms Immunologic: POSITIVE: Denies Symptoms Psychiatric: POSITIVE: Denies Psych Symptoms Seizure Exam - General Appearance General Appearance: POSITIVE: No Acute Distress, Alert - HEENT HEENT: POSITIVE: Head Inspection Nml, Eyes Inspection Nml, Ears Inspection Nml, Nose Inspection Nml, Oral/Dental Inspect. Nml, Pharynx Inspect. Nml, PERRL, EOMI - Pupil Size Pupil Size: 3 mm: Bilateral (PERRLA) - Neck Neck: POSITIVE: Non Tender, Neck Supple, Trachea Midline, Nexus Criteria Negative - Respiratory Respiratory: POSITIVE: Chest Non Tender, No Ecchymosis, Breath Sounds Normal, No Respiratory Distress - Cardiovascular Cardiovascular: POSITIVE: Regular Rate and Rhythm, Heart Sounds Normal, Equal Pulses, Strong Pulses, No Murmur, No Gallop, No JVD, No Pulse Deficit Peripheral Pulses: Radial (R): 2+, Radial (L): 2+ - Abdomen Abdomen: Soft: (All Quadrants), Normal Bowel Sounds: (All Quadrants), Denies Tenderness: (All Quadrants), No Splenomegaly: (All Quadrants), No Hepatomegaly: (All Quadrants), No Guarding: (All Quadrants), No Rebound: (All Quadrants), No Palpable Pulse: (All Quadrants), No Palpabale Mass: (All Quadrants), No Distention: (All Quadrants), No Rigidity: (All Quadrants) Additional Abdominal Details: Patient has a feeding tube for recurring aspiration pneumonia, placed 14 months ago - Skin Skin: POSITIVE: Intact, Normal For Race, Warm, Dry, No Rash - Extremities Extremity: Non-Tender: (All Extremities), Normal ROM: (All Extremities), Normal Inspection: (All Extremities) - Observed Seizure Activity Observed Seizure Activity in ED: POSITIVE: Other (No seizure activity observed in the emergency room) - Neuro / Psych Higher Functions: POSITIVE: Oriented x3, Speech Normal, Mood Appropriate, Affect Appropriate Cranial Nerves: POSITIVE: Normal As Tested, No Evidence of Acute CVA Cerebellar: POSITIVE: Normal As Tested Sensorimotor: POSITIVE: No Motor Deficits, No Sensory Deficits, Reflexes Normal , Symmetrical Seizure Progress - Results Reviewed by me Xrays/CTs/US Reviewed by me: Yes Discussed with Radiologist: Yes Radiology Findings: CT scan head without contrast read as no acute changes per radiologist Lab Results Reviewed by Me: Yes (total creatine kinase 201) Lab Results:: Laboratory Results 3 11/04/17 11/04/17 11/04/17 21:42 21:42 21:42 WBC 9.30 RBC 4.20 Hgb 13.4 Hct 39.2 MCV 93.3 MCH 31.9 H MCHC 34.2 RDW Std Deviation 44.7 RDW Coeff of Reid 13.4 Plt Count 262 MPV 10.4 Immature Gran % (Auto) 0.1 Neut % (Auto) 65.5 Lymph % (Auto) 27.4 [place] % (Auto) 6.5 Eos % (Auto) 0.3 Baso % (Auto) 0.2 Immature Gran # (Auto) 0.01 Neut # (Auto) 6.09 Lymph # (Auto) 2.55 [place] # (Auto) 0.60 Eos # (Auto) 0.03 Baso # (Auto) 0.02 WBC Morphology Comment Normal morphology Plt Morphology Comment Normal morphology RBC Morph Comment Normal morphology Sodium 131 L Potassium 3.5 L Chloride 96 L Carbon Dioxide 19 L Anion Gap 16 BUN 29 H Creatinine 0.5 BUN/Creatinine Ratio 58.00 H Glucose 149 H Calculated Osmolality 280.0 Calcium 9.2 Total Bilirubin 0.4 AST 38 ALT 33 Alkaline Phosphatase 60 Total Creatine Kinase 201 H Total Protein 7.2 Albumin 4.3 Globulin 2.9 Albumin/Globulin Ratio 1.40 CBC and BMP: 11/04/17 21:42 11/04/17 21:42 EKG Interpreted/Reviewed By Me:: Yes (normal) EKG Interpretation:: POSITIVE: Normal Sinus Rhythm, Normal Rate, Normal Intervals, Normal [place], Normal QRS, Normal ST/T - Patient's Progress Pain Medication Addressed: POSITIVE: Not Applicable School/Work Release Addressed: POSITIVE: Not Applicable Re-Examine Time:: 23:50 Re-Examine Comment: Patient remained comfortable and asymptomatic throughout her stay in the emergency room Status: POSITIVE: Unchanged - Consult Consult (If Yes, Name of Consulting MD & Time Called): Yes (Dr. Jones, hospitalist, 0000) Consulting MD will see pt:: POSITIVE: [facility] Admit Counseled: POSITIVE: Patient, Family, RE: Lab Results, RE: Radiology Results, RE : DX, RE: Need for F/U Patient Care Time - Estimated PCT Patient Care Time (In Minutes): 60 Vital Signs - Recent Vital Signs Vital Signs: Blood pressure 144/75, heart rate 74, respiratory rate 18, temperature 97.5F, oxygen saturation on room air 93% - VS Reviewed Vital Signs Reviewed: Yes Discharge Clinical Impression: Seizure Discharge Disposition: Admit to Inpatient Condition: Stable Follow Up With: TERRI MARTINES [Primary Care Provider] - Date Decision to Admit to Inpatient: 11/04/17 Time Decision to Admit to Inpatient: 23:50
[2017-11-05] MEDS ORDERED: ACETAMINOPHEN 325 MG TABLET PO PRN (00:44)
[2017-11-05] MEDS ORDERED: LIDOCAINE W/ SODIUM BICARB 0.5 ML SYR SUBD PRN (00:44)
[2017-11-05] MEDS ORDERED: CALCIUM CARBONATE 500 MG (TUMS) CHEWABLE TABLET PO PRN (00:44)
[2017-11-05] MEDS ORDERED: ONDANSETRON 4 MG/2 ML VIAL IVP PRN (00:44)
[2017-11-05 05:45] LABS: BLOOD UREA NITROGEN 23 mg/dL (7-22)
--- NOTE | 2017-11-05 06:58 | PDOC ---
HPI - History of Present Illness Date of Service: 11/05/17 Time of Service: 09:50 Chief Complaint: Seizure History of Present Illness: This is an 81 years old female with medical history significant for history of dementia, history of peripheral neuropathy, depression, anxiety, history of previous PEG tube placement and also admission back in August for delirium who been living at the skilled nursing since she was discharged back in August apparently was doing okay until yesterday when the son in law went to see her and found her having some twitching she was not responding that lasted for about 2 minutes and then she sat down and after few minutes she recovered and apparently had another episode where she had twitching did not respond also lasted 2 minutes or 3 minutes and then she recovered. She got her medication and she slept but then the nursing staff who takes care of her at the skilled nursing reported her having grand mal seizure with her arching her back and having generalized shakes and foaming at the mouth and because of that they brought her to the hospital. By the time she came into the ER apparently she did not appear postictal and she was admitted. This morning she is denying symptoms she has dementia so she does not have any recollection of the events. Past Medical History Medical History: 1. Hypertension. 2. Idiopathic peripheral neuropathy. 3. Anxiety. 4. H. influenzae meningitis in 2013. 5. History of gastroparesis. 6. Obstructive sleep apnea, on CPAP. 7. Loss of weight, adult. 8. Recurrent aspiration pneumonia. 9. admission in 08/2017 for delerium and UTI Surgical History: 1. Cholecystectomy 2007. 2. Hysterectomy. 3. Degenerative disc disease status post rhizotomy in 2010. 4. Gallstone pancreatitis with cholecysectomy. 5. appendectomy. 6. Tonsillectomy and adenoidectomy. 7. PEG tube placement 2, most recently July 2016 Pertinent Family History: Congestive heart failure both parents Past Social History: Does not smoke. . Has children, grandchildren and 7 great-grandchildren. Does not drink alcohol. The patient's has dementia. The patient lives here in [place], [place]. Now in [facility]. Tobacco Use: Never Smoker In the Past 12 Months, Have Used or Abuse Any of the Following Substance: None Medication / Allergies Home Medications: Home Medications 3 Medication Instructions Recorded Confirmed Type Fluticasone Nasal [place] 0.05% 2 spray INH BEDTIME PRN 11/05/15 11/05/17 History [Flonase Nasal [place] 0.05%] Acidophilus/Bulgaricus [Lactinex] 1 tab PO DAILY tab.chew 08/04/17 09/22/17 Rx DULoxetine HCl [Cymbalta] 30 mg PEG DAILY #30 cap 08/04/17 09/22/17 Rx Gabapentin 300 mg PEG QHS #14 cap 08/04/17 11/05/17 Rx Lactobacillus Combination No.8 3,000 mmu cells PO QDAY 08/04/17 11/05/17 Rx [Adult Probiotic] Amlodipine Besylate 5 mg PEG DAILY #90 tab 08/08/17 09/22/17 Rx Lansoprazole [Prevacid] 30 mg PEG DAILY #30 suspdr.rec 08/08/17 11/05/17 Rx busPIRone HCL [Buspirone HCl] 5 mg PEG BID tab 08/08/17 11/05/17 Rx Potassium Chloride Packet [K-Marisol 20 meq PO DAILY packet 08/14/17 09/22/17 Rx Packet] sulfamethoxazole 200 40 ml PO BID #800 ml 09/09/17 09/22/17 Rx mg-trimethoprim 40 mg/5 mL oral suspension doxycycline hyclate 50 mg capsule 50 mg PO BID #14 cap 09/24/17 Rx quetiapine 25 mg tablet 50 mg PO QHS #30 tab 10/14/17 11/05/17 Rx sertraline 100 mg tablet 100 mg PO QDAY #30 tab 10/14/17 11/05/17 Rx Allergies/Adverse Reactions: Allergies 3 Allergy/AdvReac Type Severity Reaction Status Date / Time Penicillins Allergy Intermediate HIVES Verified 11/05/17 07:20 Review of Systems - Review of Systems All Systems: Reviewed & No Additional Complaints Except as Stated Exam - Vitals Vital Signs: Vital Signs Temperature 97.0 F Temperature Source Temporal Artery Scan Pulse Rate [Apical] 64 Pulse Rate [Pulse Oximeter] 65 Respiratory Rate 20 Blood Pressure [Right Arm] 156/60 Pulse Ox 94 Oxygen Flow Rate 2 Oxygen Delivery Method Nasal Cannula Height 5 ft 5 in Weight 116 lb 14.4 oz - General General Appearance: No Acute Distress, Cooperative, Thin - Head Head Exam: Normal Inspection - Eye Eye Exam: POSITIVE: Normal Appearance - ENT ENT Exam: POSITIVE: Normal Exam - Neck Neck Exam: Normal Inspection - Respiratory Respiratory Exam: POSITIVE: Clear to Auscultation - Bilaterally - Cardiovascular Cardiovascular Exam: POSITIVE: RRR - GI/Abdominal GI/Abdominal Exam: POSITIVE: Normal Bowel Sounds, Non Tender, Non Distended, Soft, No Organomegaly Additional GI/Abdominal Exam Details: PEG tube in place - Rectal Rectal Exam: POSITIVE: Deferred - External Exam: POSITIVE: Deferred Exam: POSITIVE: Deferred - Extremities Extremities Exam: POSITIVE: Normal Inspection - Back Back Exam: POSITIVE: Normal Inspection - Neurological Neurological Exam: POSITIVE: Alert, CN II-XII Intact, No Facial Droop, Speech Intact / Clear, Moves All Extremities Equally - Psychiatric Psychiatric Exam: POSITIVE: Normal Affect Results - Labs CBC and BMP: 11/04/17 21:42 11/05/17 04:37 - Imaging Status: Report Reviewed by Me (CT head no acute findings) Assessment and Plan - Patient Problems (1) Seizure Current Visit: Yes Status: Acute Comment: Possibly she had a seizure. I did give her a dose of Keppra last night I left a message to Dr. Gipson her neurologist to the dicusss her case with her and see whether we need to put her on long-term treatment. Code(s): R56.9 - Unspecified convulsions (2) Hypertension, benign Current Visit: No Status: Chronic Onset Date: 07/19/14 Comment: Continue previous medications Code(s): I10 - Essential (primary) hypertension (3) Anxiety Current Visit: No Status: Chronic Onset Date: 06/07/13 Comment: Continue BuSpar Code(s): F41.9 - Anxiety disorder, unspecified (4) Dementia Current Visit: Yes Status: Acute Comment: continue seroquel. Code(s): F03.90 - Unspecified dementia without behavioral disturbance
[2017-11-05] MEDS ORDERED: busPIRone HCL 5 MG TABLET PO SCH (09:00)
[2017-11-05] MEDS ORDERED: FLUTICASONE PROPIONATE 16 GRAM (120 SPRAYS / BOTTLE) ENOS PRN (09:00)
[2017-11-05] MEDS: ACIDOPHILUS/BULGARICUS 1 EACH GRAN.PACK PO SCH (10:02)
[2017-11-05] MEDS: Esomeprazole DR 20mg Capsule PO SCH (10:03)
[2017-11-05] MEDS: busPIRone HCL 5 MG TABLET PO SCH ×2 (10:03→21:10)
[2017-11-05] MEDS: Sertraline Tab 50 MG TAB PEG SCH (10:03)
[2017-11-05] MEDS: AmLODIPine Tab 5 MG TABLET PO SCH (10:04)
[2017-11-05] MEDS: LevETIRAcetam Tab 500 MG TABLET PO SCH ×2 (14:36→21:10)
[2017-11-05] MEDS ORDERED: QUEtiapine Tab 25 MG TAB PO SCH (21:00)
[2017-11-05] MEDS ORDERED: GABAPENTIN 300 MG CAPSULE PO SCH (21:00)
[2017-11-06] MEDS: Esomeprazole DR 20mg Capsule PO SCH (06:54)
[2017-11-06 07:01] VITALS: BP 151/61; RESP 20; TEMP 97; O2SAT 99
[2017-11-06] MEDS: LevETIRAcetam Tab 500 MG TABLET PO SCH (09:10)
[2017-11-06] MEDS: busPIRone HCL 5 MG TABLET PO SCH (09:11)
[2017-11-06] MEDS: AmLODIPine Tab 5 MG TABLET PO SCH (09:11)
[2017-11-06] MEDS: ACIDOPHILUS/BULGARICUS 1 EACH GRAN.PACK PO SCH (09:11)
[2017-11-06] MEDS: Sertraline Tab 50 MG TAB PEG SCH (09:12)
--- NOTE | 2017-11-06 09:49 | DCSUMMARY ---
Hospitalization Summary Admit Date: 11/05/2017 Discharge Date: 11/06/17 Hospital Course: Discharge diagnoses 1. Seizure looked grand mal per description 2. History of dementia 3. History of peripheral neuropathy 4. History of anxiety 5. History of depression 6. Status post PEG placement 2016 for recurrent aspiration pneumonia 7. Admission in August 2017 for delirium and UTI Hospital course This is an 81 years old female with medical history significant for history of dementia, history of peripheral neuropathy, depression, anxiety, previous PEG tube placement and also admission back in August for delirium he is been living at the group home since she was discharged back in August. Apparently she was doing okay until the day before admission when the son in [place] went to see her he found her having some twitching she was not responding that lasted for about 2 minutes and then she sat down after few minutes she recovered and apparently had another episode where she had twitching did not respond lasted maybe 2 minutes and then she recovered. She did receive her medication and she slept then per the nursing staff who takes care of her at the group home reported having grand mal seizure with her arching her back and having generalized shakes and foaming at the mouth and because of that they brought her to the hospital. By the time she came into the ER apparently she did not appear postictal and she was admitted. History is limited from her because of her history of dementia. Exam when I saw her was not remarkable she had a PEG tube. And she has dementia and has trouble remembering events. I did discuss it with Dr. Gipson her neurologist that initially we gave 500 mg of Keppra he suggested to increase it to 1000 mg twice a day. We kept her overnight. The next day there was no more grand mal seizures. she continued to have some issues with her behavior at the nursing she would get really anxious Dr. Gipson discontinued the Ativan that she was getting at the group home sporadically and he increased her BuSpar. On talking to her daughter it seems that the Seroquel that she was getting in the morning seemed to help her and make her more calm the dosage also have been changed to night dosage only recently. I thought will give her a small dose of seroquel during the day and see whether that would help her behavioral symptoms. If she become very sleepy than this can be discontinued. Discharge instruction Diet nothing by mouth feeding through the PEG one container every 6 times a day with on the treadmill of free water. Medications Current Medication(s) 3 Medication Instructions Recorded Confirmed Type Fluticasone Nasal [place] 0.05% 2 spray INH BEDTIME PRN 11/05/15 11/05/17 History [Flonase Nasal [place] 0.05%] Acidophilus/Bulgaricus [Lactinex] 1 tab PO DAILY tab.chew 08/04/17 11/05/17 R Gabapentin 300 mg PEG QHS #14 cap 08/04/17 11/05/17 Rx Lactobacillus Combination No.8 3,000 mmu cells PO QDAY 08/04/17 11/05/17 Rx [Adult Probiotic] Amlodipine Besylate 5 mg PEG DAILY #90 tab 08/08/17 11/05/17 Rx Lansoprazole [Prevacid] 30 mg PEG DAILY #30 suspdr.rec 08/08/17 11/05/17 Rx Potassium Chloride Packet [K-Marisol 20 meq PO DAILY packet 08/14/17 11/05/17 Rx Packet] quetiapine 25 mg tablet 50 mg PO QHS #30 tab 10/14/17 11/05/17 Rx sertraline 100 mg tablet 100 mg PO QDAY #30 tab 10/14/17 11/05/17 Rx busPIRone HCL [Buspirone HCl] 10 mg PO BID tab 11/06/17 Rx levETIRAcetam Tab [Keppra Tab] 1,000 mg PO BID tab 11/06/17 Rx Follow-up with her PCP in 1-2 weeks, with Dr. Gipson as scheduled on November 14 Condition at discharge was stable for discharge Exam - Vitals Vital Signs: Vital Signs Temperature 97 F Temperature Source Temporal Artery Scan Pulse Rate [Apical] 54 Pulse Rate [Pulse Oximeter] 54 Respiratory Rate 20 Blood Pressure [Right Arm] 151/61 Pulse Ox 99 Oxygen Flow Rate 2 Oxygen Delivery Method Nasal Cannula Height 5 ft 5 in Weight 104 lb 3.2 oz - General General Appearance: No Acute Distress, Cooperative, Thin - Head Head Exam: Normal Inspection - Eye Eye Exam: POSITIVE: Normal Appearance - ENT ENT Exam: POSITIVE: Normal Exam - Respiratory Respiratory Exam: POSITIVE: Clear to Auscultation - Bilaterally - Cardiovascular Cardiovascular Exam: POSITIVE: RRR - GI/Abdominal GI/Abdominal Exam: POSITIVE: Normal Bowel Sounds, Non Tender, Non Distended, Soft, No Organomegaly Additional GI/Abdominal Exam Details: PEG tube in place. - Rectal Rectal Exam: POSITIVE: Deferred - External Exam: POSITIVE: Deferred - Extremities Extremities Exam: POSITIVE: Normal Inspection - Back Back Exam: POSITIVE: Normal Inspection - Neurological Neurological Exam: POSITIVE: Alert, CN II-XII Intact, No Facial Droop, Speech Intact / Clear, Moves All Extremities Equally - Psychiatric Psychiatric Exam: POSITIVE: Flat Affect - Integumentary Integumentary Exam: POSITIVE: Normal Color Patient Problems - Patient Problem List (1) Seizure Status: Acute Code(s): R56.9 - Unspecified convulsions Category: Medical (2) Hypertension, benign Status: Chronic Onset Date: 07/19/14 Code(s): I10 - Essential (primary) hypertension Category: Medical (3) Anxiety Status: Chronic Onset Date: 06/07/13 Code(s): F41.9 - Anxiety disorder, unspecified Category: Medical (4) Dementia Status: Acute Code(s): F03.90 - Unspecified dementia without behavioral disturbance Category: Medical
== END 2017-11-06 10:39 ==
LOC: ER 21:53 → MED/SURG 21:53
PROVIDERS: ADMIT Internal Medicine; ATTEND Internal Medicine

== ENCOUNTER 2018-08-28 18:03 | Inpatient (IN) ==
[~2018-08-28 18:03] MED LIST changes: +DIPH,PERTUSS,TET(ADACEL) VAC/PF 0.5 ML (Tdap) IM ONE; -LIDOCAINE 2% VISCOUS(20 MG/1 ML) - 15 ML UD CUP PO ONE; -LIDOCAINE W/ SODIUM BICARB 0.5 ML SYR ONE; -Lactated Ringers 1,000 ML PRIMARY IV ONE; +Sodium Chloride 0.9% 1,000 ML PRIMARY IV ONE; -fentaNYL Inj 100 MCG/2 ML VIAL ONE
[2018-08-28 18:15] LABS: BASOPHILS # (AUTO) 0.05 10*3/UL; BASOPHILS % (AUTO) 0.5 % (0-1); EOSINOPHILS # (AUTO) 0.13 10*3/UL; EOSINOPHILS % (AUTO) 1.3 % (0-8); Hematocrit [HCT] 41.1 % (37.0-47.0); Hemoglobin [HGB] 14.2 g/dL (12.0-16.0); MEAN CORPUSCULAR HEMOGLOBIN 31.4 PG (27-31); MEAN CORPUSCULAR HGB CONC 34.5 g/dL (33-37); MEAN CORPUSCULAR VOLUME 90.9 FL (81-99); MEAN PLATELET VOLUME 8.9 FL (7.4-12.2); MONOCYTES # (AUTO) 0.69 10*3/UL (0.3-0.8); MONOCYTES % (AUTO) 7.1 % (5-15); NEUTROPHILS # (AUTO) 6.39 10*3/UL; RED BLOOD COUNT 4.52 10^6/uL (4.20-5.40)
[2018-08-28 18:16] LABS: PLATELET MORPHOLOGY COMMENT NORMAL MORPHOLOGY (NORM); RBC MORPHOLOGY COMMENT NORMAL MORPHOLOGY (NORM); WBC MORPHOLOGY COMMENT NORMAL MORPHOLOGY (NORM)
--- NOTE | 2018-08-28 18:22 | PDOC ---
Fall HPI - General Chief Complaint: Head Problem / Injury Stated Complaint: fall with head injury Date Seen by Provider: 08/28/18 Time Seen by Provider: 17:55 Source: POSITIVE: Patient Exam Limitations: POSITIVE: No limitations Nurse's Notes Reviewed & Considered: Yes - History of Present Illness Initial Comments: The patient is an 82-year-old female who is brought to the emergency department by ambulance after a fall. The patient has significant dementia making history somewhat difficult. She had an unwitnessed fall near the bathroom. She apparently fell on her left side. She does have some bleeding to the left side of her scalp as well as a skin tear to the left elbow. She was complaining initially of left hip pain as well. Her daughter reports that she has a history of previous left hip replacement surgery 3 or 4 years ago. She does not currently take any blood thinner medications. Her daughter is unsure when she would've had a tetanus shot last. The patient is complaining of headache. Have you received a tetanus shot in the past 10 years?: Unknown - Patient Home Medications Home Medications: Home Medications Acidophilus/Bulgaricus [Lactinex] 1 tab PO DAILY tab.chew 08/04/17 Gabapentin 300 mg PEG QHS #14 cap 08/04/17 sertraline 100 mg tablet 100 mg PO QAM tab 11/18/17 Lansoprazole [Prevacid] 30 mg FEEDING TUBE QAM #30 11/24/17 amlodipine 10 mg tablet 5 mg PO QAM #90 tab 11/24/17 donepezil 10 mg disintegrating tablet 10 mg PO QHS #30 tab 02/23/18 cephalexin 250 mg/5 mL oral suspension 500 mg PO BID #200 ml 04/08/18 quetiapine 50 mg tablet 50 mg PO ONCE HS #30 tab 04/15/18 trimethoprim 50 mg/5 mL oral solution 100 mg PO QDAY #473 ml 05/20/18 potassium chloride ER 20 mEq tablet,extended release 20 meq PO QDAY #30 tab 07/03/18 albuterol sulfate HFA 90 mcg/actuation aerosol inhaler 1 puff INH Q6H PRN #8 g 07/14/18 memantine 10 mg tablet See Rx Instructions .ROUTE .COMPLEX #60 capsule 07/28/18 budesonide 0.5 mg/2 mL suspension for nebulization See Rx Instructions .ROUTE .COMPLEX #60 milliliter 07/30/18 ipratropium-albuterol 0.5 mg-3 mg(2.5 mg base)/3 mL nebulization soln See Rx Instructions .ROUTE .COMPLEX #180 milliliter 07/30/18 lorazepam 0.5 mg tablet See Rx Instructions .ROUTE .COMPLEX #90 capsule 08/27/18 Inhaler,Assist Device,Lg Mask [BreatheRite Spacer-Mask,Adult] 0 inh .ROUTE .MEDSUPPLY 08/28/18 - Patient Allergies Allergies/Adverse Reactions: Allergies Allergy/AdvReac Type Severity Reaction Status Date / Time Penicillins Allergy Intermediate HIVES Verified 08/28/18 18:03 Past Medical History - heen HEENT History: Denies History, Hard of Hearing Additional HEENT History: Bilateral Hearing aids. usually only wears left Cardiovascular History: Hypertension Respiratory History: Pneumonia, Sleep Apnea, Home CPAP Use Additional Respiratory History: Home CPAP with oxygen at night. No oxygen during day. PNEUMONIA X 4 (LAST 04/2016). SILENT ASPIRATIONS/ PEG TUBE PLACEMENT 07/26 Gastrointestinal History: GERD, Irritable Bowel Syndrome Additional Gastrointestinal History: GASTROPARESIS Genitourinary History: Denies History Endocrine History: Denies History Musculoskeletal History: Arthritis Prosthesis or Implant: Yes (Left hip) Additional Musculoskeletal History: Had Left hip surgery November 2014 Neurological History: Alzheimer's, Meningitis Additional Neurological History: NEUROPATHY. Anxiety. MENINGITIS CAUSED NEUROPAthy. alzheimers diagnosis 2 weeks ago Blood Disorders: Denies History Psychiatric History: Anxiety Disorders Additional Psychiatric History: anxiety History of Sexually Transmitted Diseases: No Cancer History: Denies History History of MDRO: Yes Other Type of MDRO: c diff History of Other Communicable Diseases: No Alcohol Use: None In the Past 12 Months, Have Used or Abuse Any Substance: None Previous Surgical History: Yes Type / Date of Surgery: LEFT FOOT S FEEDING TUBE/SOPHIE/TONSILLECTOMY/HYSTERECTOMY, APPENDECTOMY, Left hip surgery, REMOVAL OF PANCREATIC STONE Anesthesia Reactions: No Malignant Hyperthermia: No Significant Family History: No pertinent family hx Past Medical History Reviewed: Reviewed - No Changes ROS - Limitations ROS Limitations: Other (please comment) (Patient has significant dementia) Fall Physical Exam - General Appearance General Appearance: POSITIVE: Alert, Cooperative, Anxious - HEENT HEENT: POSITIVE: Eyes Inspection Nml, Ears Inspection Nml, Pharynx Inspect. Nml, PERRL, EOMI, Other (She does have swelling and hematoma to the left temporoparietal scalp, there is some blood in the hair in this region with no obvious gaping laceration and no active bleeding currently) - Neck Neck: POSITIVE: Other (She does report some tenderness on palpation of her C-sp ine however she denied neck pain initially, she had a positive review of systems it is unclear what is actually hurting) - Respiratory / CVS Respiratory / CVS: POSITIVE: Breath Sounds Normal, No Respiratory Distress, Heart Sounds Normal, Regular Rate/Rhythm, Other (She reported tenderness on examination of her ribs after I examined them) - Abdomen Abdomen: Soft: (All Quadrants), Denies Tenderness: (All Quadrants) Additional Abdominal Details: Pelvis was stable and nontender - Neuro / Psych Neuro / Psych: POSITIVE: Other (No focal neurologic deficits) - Back Back: POSITIVE: No Vertebral Tenderness - Extremities Additional Extremities Details: She is holding both of her lower extremities stiff and straight and will not let me bend at the pelvis, she does have scar over the left hip from previous surgery, no obvious deformity or foreshortening of the leg, good dorsalis pedis pulse bilaterally. Examination left elbow does reveal a small skin tear, no obvious bony deformity or tenderness. Procedures - Laceration/Wound Repair Did patient have a laceration repair: Yes Site of Laceration/Wound: Left restoration Wound Length (cm): 4 Wound's Depth, Shape: Into subcutaneous tissue, Linear (Half-duong shaped) Local Anesthesia Used - Indicate Amt Used in Comment: Lidocaine 2% with Epinephrine: Yes Wound Explored: Clean Wound Repaired With: [place] Number of Butch: 5 Fall Progress - Results Reviewed by me Xrays/CTs/US Reviewed by me: Yes Discussed with Radiologist: Yes Radiology Findings: CT scan of the head and cervical spine reveals no acute findings per radiologist. X-ray of the left elbow reveals no acute findings per radiologist. Chest x-ray shows no acute findings per radiologist. X-ray of the left hip reveals a prosthetic hip that appears to be subluxed or dislocated per radiologist. Lab Results Reviewed by Me: Yes CBC and BMP: 08/28/18 17:50 08/28/18 18:02 Lab Results:: Laboratory Results 08/28/18 08/28/18 08/28/18 17:50 17:58 18:02 WBC 9.70 RBC 4.52 Hgb 14.2 Hct 41.1 MCV 90.9 MCH 31.4 H MCHC 34.5 RDW Std Deviation 41.8 RDW Coeff of Reid 12.9 Plt Count 307 MPV 8.9 Immature Gran % (Auto) 0.4 Neut % (Auto) 66.0 Lymph % (Auto) 24.7 [place] % (Auto) 7.1 Eos % (Auto) 1.3 Baso % (Auto) 0.5 Immature Gran # (Auto) 0.04 Neut # (Auto) 6.39 Lymph # (Auto) 2.40 [place] # (Auto) 0.69 Eos # (Auto) 0.13 Baso # (Auto) 0.05 WBC Morphology Comment Normal morphology Plt Morphology Comment Normal morphology RBC Morph Comment Normal morphology Sodium 127 L Potassium 4.2 Chloride 91 L Carbon Dioxide 24 Anion Gap 12 BUN 23 H Creatinine 0.6 BUN/Creatinine Ratio 38.33 H Glucose 107 Calculated Osmolality 267.0 Calcium 9.4 Magnesium 1.8 Total Bilirubin 0.3 AST 37 ALT 14 Alkaline Phosphatase 61 Total Protein 7.8 Albumin 4.5 Globulin 3.2 Albumin/Globulin Ratio 1.40 - Patient's Progress MDM / ED Course: An IV had been established per EMS. The patient's tetanus was updated with Tdap. An IV had been established per EMS. Lab work revealed a low sodium at 127, other blood work was essentially unremarkable. CT scan of the head and cervical spine were obtained and were negative for skull fracture, cervical spine fracture or any acute abnormalities per radiologist. X-ray of the left elbow showed no fractures per radiologist. Chest x-ray showed no obvious acute abnormalities per radiologist. X-ray of the left hip does reveal a prosthetic hip which appears to be dislocated/subluxed per radiologist. The laceration on the left restoration was repaired using butch. Dr. Rendon was consulted from orthopedic surgery and has made preparations to take the patient to the operating room for closed reduction under fluoroscopy of the left hip. The patient will be subsequently admitted to the hospitalist service. These findings and recommendations were discussed with the patient's family. Dr. Shelley has agreed to admit the patient following the closed reduction. - Consult Counseled: POSITIVE: Patient, Family, RE: Lab Results, RE: Radiology Results, RE: DX, RE: Need for F/U Patient Care Time - Estimated PCT Patient Care Time (In Minutes): 40 Vital Signs - Recent Vital Signs Vital Signs: Vital Signs (Last 8 hours) Temp Pulse Resp BP Pulse Ox 08/28/18 20:40 84 18 137/82 92 08/28/18 18:12 97.2 F 70 18 186/78 91 - VS Reviewed Vital Signs Reviewed: Yes Discharge Clinical Impression: Hyponatremia, Scalp laceration Dislocated hip Qualifiers: Encounter type: initial encounter Laterality: left Qualified Code(s): S73.005A - Unspecified dislocation of left hip, initial encounter Dementia Qualifiers: Dementia type: unspecified type Dementia behavioral disturbance: without behavi oral disturbance Qualified Code(s): F03.90 - Unspecified dementia without b ehavioral disturbance Condition: Stable Date Decision to Admit to Inpatient: 08/28/18 Time Decision to Admit to Inpatient: 20:00
[2018-08-28 18:24] LABS: BLOOD UREA NITROGEN 23 mg/dL (7-22); BUN/CREATININE RATIO 38.33 (6-20); SERUM ALBUMIN 4.5 g/dL (3.5-4.8)
--- NOTE | 2018-08-28 19:09 | DI ---
History: ITS.REASON fall Physician Notes: Tech Comments: Exam: CT HEAD Without Contrast Comparison: 11/08/2017 FINDINGS: No intracranial hemorrhage, mass effect or calvarial fracture. Left convexity scalp soft tissue injury, swelling. No radiopaque foreign body. Ventricles are unchanged in size and remain midline. Age commensurate chronic and involutional changes again noted. There are again bilateral maxillary sinus air-fluid levels and partial ethmoid air cell opacification. The mastoids and orbits appear within limits. IMPRESSION: No intracranial hemorrhage, mass effect or calvarial fracture. Left convexity scalp soft tissue injury, swelling. No radiopaque foreign body. Age commensurate chronic and involutional changes again noted. There are again bilateral maxillary sinus air-fluid levels and partial ethmoid air cell opacification.
--- NOTE | 2018-08-28 19:15 | DI ---
History: ITS.REASON fall Physician Notes: Tech Comments: Exam: CT C SPINE Without Contrast Comparison: FINDINGS: No fracture or malalignment. Straightening may represent position or spasm. No evidence of prevertebral swelling. Multilevel spondylosis. Right-sided C2-3 facet osseous fusion. C1-2 degenerative changes. IMPRESSION: No fracture or malalignment. Straightening may represent position or spasm. No evidence of prevertebral swelling. Multilevel spondylosis.
[2018-08-28] MEDS ORDERED: LIDOCAINE HCL 1%/EPI 1:100,000 - 20 ML VIAL SUBCUT ONE (19:34)
--- NOTE | 2018-08-28 19:43 | DI ---
History: ITS.REASON fall Physician Notes: Tech Comments: Exam: XR CXR 1 VIEW 2 total images Comparison: 05/13/2018 FINDINGS: The lungs are clear. The cardiac and mediastinal contours appear within limits. The visualized osseous structures appear within limits. IMPRESSION: No evidence of acute traumatic injury.
--- NOTE | 2018-08-28 19:53 | DI ---
History: ITS.REASON fall Physician Notes: Tech Comments: Exam: XR LEFT ELBOW 3 views Comparison: None available FINDINGS: No fracture, dislocation or joint effusion. Osteoarthrosis medial joint with marginal spurring IMPRESSION: No fracture, dislocation or joint effusion.
--- NOTE | 2018-08-28 20:02 | DI ---
History: ITS.REASON fall Physician Notes: Tech Comments: Exam: XR PELVIS single image Comparison: 02/17/2015 FINDINGS: No evidence of fracture. The SI joints and pubic symphysis appear within limits. IMPRESSION: No evidence of fracture. Exam: XR LEFT HIP 2 views Comparison: 02/17/2015 FINDINGS: Status post left hip replacement again noted and now appears subluxed/dislocated anterior and lateral. No fracture. Mild heterotopic bone formation again noted. IMPRESSION: Status post left hip replacement again noted and now appears subluxed/dislocated anterior and lateral. No fracture.
[2018-08-28] MEDS ORDERED: PROPOFOL 10 MG/1 ML (200 MG/20 ML) VIAL IV ONE (21:08)
[2018-08-28] MEDS ORDERED: KETAMINE 100 MG/1 ML - 5 ML ONE (21:09)
--- NOTE | 2018-08-28 21:33 | CONSULT ---
Consult Note - Consult Consult Date: 08/28/18 Reason for Consult: PreOp Consulation : Ortho Requesting Physician: Dr. Solis Lawson Primary Care Provider: TERRI MARTINES - History of Present Illness History of Present Illness: Patient is an 82-year-old female with history of left total hip replacement and fairly advanced dementia who sustained an unwitnessed fall was found to have a small skin tear on the left elbow pain and discomfort in the left lower extremity refusing to move the leg and significant cut on the back of her head. Patient has had popping in the left hip over a period of time they think potentially use her hip replacement was almost 5 years ago but she has not complained of severe pain with all her other medical issues this was the least of the family's concern recently but this is clearly different from normal. She normally walks with her feet in a neutral position they think with a walker in a hunched over. She is complaining of a lot of left hip pain and some right hip pain. X-rays did not show any evidence of right hip fracture of pelvis fracture. She will not let she touched the left leg or right leg for examination in fear of pain. Past Medical History Medical History: 1. Hypertension. 2. Idiopathic peripheral neuropathy. 3. Anxiety. 4. H. influenzae meningitis in 2013. 5. History of gastroparesis. 6. Obstructive sleep apnea, on CPAP. 7. Loss of weight, adult. 8. Recurrent aspiration pneumonia. 9. admission in 08/2017 for delerium and UTI Surgical History: 1. Cholecystectomy 2007. 2. Hysterectomy. 3. Degenerative disc disease status post rhizotomy in 2010. 4. Gallstone pancreatitis with cholecysectomy. 5. appendectomy. 6. Tonsillectomy and adenoidectomy. 7. PEG tube placement 2, most recently July 2016 Pertinent Family History: Congestive heart failure both parents Past Social History: Does not smoke. . Has children, grandchildren and 7 great-grandchildren. Does not drink alcohol. The patient's has dementia. The patient lives here in [place], [place]. Now in [facility]. Tobacco Use: Never Smoker In the Past 12 Months, Have Used or Abuse Any of the Following Substance: None Medication / Allergies Home Medications: Home Medications Medication Instructions Recorded Confirmed Type Acidophilus/Bulgaricus [Lactinex] 1 tab PO DAILY tab.chew 08/04/17 08/28/18 Rx Gabapentin 300 mg PEG QHS #14 cap 08/04/17 08/28/18 Rx sertraline 100 mg tablet 100 mg PO QAM tab 11/18/17 08/28/18 History Lansoprazole [Prevacid] 30 mg FEEDING TUBE QAM #30 11/24/17 08/28/18 Rx amlodipine 10 mg tablet 5 mg PO QAM #90 tab 11/24/17 08/28/18 Rx donepezil 10 mg disintegrating 10 mg PO QHS #30 tab 02/23/18 08/28/18 Rx tablet cephalexin 250 mg/5 mL oral 500 mg PO BID #200 ml 04/08/18 08/28/18 Rx suspension quetiapine 50 mg tablet 50 mg PO ONCE HS #30 tab 04/15/18 08/28/18 Rx trimethoprim 50 mg/5 mL oral 100 mg PO QDAY #473 ml 05/20/18 08/28/18 Rx solution potassium chloride ER 20 mEq 20 meq PO QDAY #30 tab 07/03/18 08/28/18 Rx tablet,extended release albuterol sulfate HFA 90 1 puff INH Q6H PRN #8 g 07/14/18 08/28/18 Rx mcg/actuation aerosol inhaler memantine 10 mg tablet See Rx Instructions .ROUTE 07/28/18 08/28/18 Rx .COMPLEX #60 capsule budesonide 0.5 mg/2 mL suspension See Rx Instructions .ROUTE 07/30/18 08/28/18 Rx for nebulization .COMPLEX #60 milliliter ipratropium-albuterol 0.5 mg-3 See Rx Instructions .ROUTE 07/30/18 08/28/18 Rx mg(2.5 mg base)/3 mL nebulization .COMPLEX #180 milliliter soln lorazepam 0.5 mg tablet See Rx Instructions .ROUTE 08/27/18 08/28/18 Rx .COMPLEX #90 capsule Inhaler,Assist Device,Lg Mask 0 inh .ROUTE .MEDSUPPLY 08/28/18 08/28/18 History [BreatheRite Spacer-Mask,Adult] Allergies/Adverse Reactions: Allergies Allergy/AdvReac Type Severity Reaction Status Date / Time Penicillins Allergy Intermediate HIVES Verified 08/28/18 18:03 Exam - - Exam: Exam shows the patient has a significant laceration to the back of her head which has been stapled. She moves her head and neck around quite freely asking questions although it does not appear to be oriented to time place or situation. This is stable for her according to family history. She has a small skin tear in the elbow I say about a centimeter and a half horseshoe-shaped very small no significant bruising good elbow motion shoulder wrist and digit right upper extremity good motion otherwise. Right lower extremity she will not move the leg attempts to move she is very rigid and fearful of having any pain in the left lower extremity she will not move either she does move the right lower extremity it is flexed at the hip with the knee bent in the foot under her left leg popping. She seems to move around in order to position herself for better but will not move the left hip. She has strong pulses in both feet brisk refill and generally seems to withdraw from a gentle pinching on the feet. I has well-healed incision the anterior hip region she has a neutral position of the foot. Radiographs show what appears to be an anterior superior dislocation of the left total hip replacement no clear evidence of fractures. I don't see any clear evidence of fractures of the right hip or acetabulum or rami region. The acetabular cup on the lateral seems to have appropriate anteversion about somewhere between 30 and 40 of anteversion there is a screw in place which seems similar to x-rays about a 4 years ago. Looking at the cup position at least on these current films of looks very vertical and looking at old films and certainly vertical at those points in time. No evidence of fracture around the stem. - Vitals Vital Signs: Vital Signs Temperature 97.2 F Pulse Rate [Pulse Oximeter] 84 Respiratory Rate 18 Blood Pressure [Left Arm] 137/82 Pulse Ox 92 Oxygen Flow Rate 2 Oxygen Delivery Method Nasal Cannula Height 5 ft 5 in Weight 58.967 kg Results - Labs CBC and BMP: 08/28/18 17:50 08/28/18 18:02 Assessment and Plan - Assessment / Plan Additional Assessment/Plan Details: Impression: Left total hip dislocation Complaints of right hip pain. Laceration posterior head and small skin tear left elbow. Plan: We discussed the patient's current condition and clinical findings as it pertains to the current situation. Surgical versus nonsurgical options risks and benefits were discussed and reviewed. Options moving forward include but are not limited to continued choice to live with their current condition; evaluate their current condition further with imaging studies and/or diagnostic testing, etc.; treat problem/problems with surgical versus nonsurgical methods. The patient demonstrates a clear understanding of our discussion. All questions were answered. Surgical versus nonsurgical options risks and benefits were discussed and reviewed. The risks include but are not limited to bleeding, infection, neurovascular damage, wound problems, deep vein thromboses, pulmonary embolism, fracture, dislocation, nonunion/malunion, need for further surgery, need for blood transfusion, and loss of life and limb. Certainly any surgical procedure may not improve symptoms and potentially could makes symptoms worse. There are no guarantees implied with the discussion of surgical treatment. All questions are answered and the patient wishes to proceed with surgical treatment. We discussed options for treatment with the patient's daughter and we'll proceed with attempted closed reduction in evaluating with the C-arm to see with this may be unstable for possibly brace use. I did discuss since she is demented and she been having this popping sensation by history of the family this may mean she's been subluxing all along the looking at the construct in from previous x- rays soon after surgery she has a rather vertical cup and she may be subluxing chronically and this may just be stuck in this position hopefully we'll be able to get this back if we do an it's unstable she may need to be considered for some revision to the acetabulum O what with her dementia is fair nature of this would certainly be very challenging situation but no any case we are going to proceed with attempted closed reduction and evaluation under anesthesia with C- arm to see where she might be unstable. And proceed along these lines at the current time. Family agrees
--- NOTE | 2018-08-28 21:57 | CRNA.PROGR ---
Anesthesia Time - Procedure/Recovery Time Start Date: 08/28/18 End Date: 08/28/18 Anesthesia : Time In: 21:28 Anesthesia : Time Out: 21:49 Anesthesia : Total Time: 21 - Total Anesthesia Time Total Anesthesia Time (minutes): 21 - Other Weight: 58.967 kg Height: 5 ft 5 in Body Mass Index (BMI): 21.6 Physical Status: P3 Anesthesia Type: MAC
--- NOTE | 2018-08-28 22:00 | ORTHO.OP ---
- - -: See Dictated Operative Report Procedure Codes - Hip Procedures Primary Hip Procedure: Other CPT Code(s) (cpt 56135)
--- NOTE | 2018-08-28 22:04 | CRNA.PROGR ---
Post Anesthesia Phase II - Post Anesthesia Phase II Patient Stable and Discharged To: Med/Surg Temperature: 97.2 F Pulse Rate: 58 Respiratory Rate: 18 Blood Pressure: 128/69 Pulse Ox: 92 Total Katelyn Score at Discharge: 9 Post Anesthesia Discharge Criteria Met: Yes
--- NOTE | 2018-08-28 22:47 | PDOC ---
HPI - History of Present Illness Date of Service: 08/28/18 Time of Service: 22:42 Chief Complaint: fall History of Present Illness: This is a very pleasant 82 YO who suffers from advanced dementia, Hx aspiration pneumonias now with PEG tube, and frequent UTIs and pseudoseizures who presented earlier in the ER with a fall at her assisted living. The patient can only recall she may have been in the bathroom. She was found to have a dislocated left hip which was replaced in the past. She also had a laceration on the occiput on the left. The patient's history was obtained from her daugher and son-in-law. She is post operative from a closed reduction and is currently not having any chest pain, shortness of breath, or nausea or vomiting. The hip was reportedly "popping" frequently, and in my discussion with Dr. Rendon, may have been subluxed chronically. No other exacerbating information could be obtained. Interestingly, the patient has also had issues with hypoxia and is normally on 2 LPM at night, but was hypoxic in the ER without any evidence of pneumonia. Past Medical History Medical History: 1. Hypertension. 2. Idiopathic peripheral neuropathy. 3. Anxiety. 4. H. influenzae meningitis in 2013. 5. History of gastroparesis. 6. Obstructive sleep apnea, on CPAP. 7. Dementia with anxiety features. 8. Recurrent aspiration pneumonia, s/p PEG in 2017. 9. frequent UTIs, on preventative antibiotic. Surgical History: 1. Cholecystectomy 2007. 2. Hysterectomy. 3. Degenerative disc disease status post rhizotomy in 2010. 4. Gallstone pancreatitis with cholecysectomy. 5. appendectomy. 6. Tonsillectomy and adenoidectomy. 7. PEG tube placement 2, most recently July 2016. 8. left hip replacement Pertinent Family History: Congestive heart failure both parents Past Social History: Does not smoke. . Has children, grandchildren and 7 great-grandchildren. Does not drink alcohol. The patient's has dementia. The patient lives here in [place], [place]. Now in the new assisted living facility in [place] with her . She is DO NOT RESUSITATE. Tobacco Use: Never Smoker In the Past 12 Months, Have Used or Abuse Any of the Following Substance: None Alcohol Use: None Medication / Allergies Home Medications: Home Medications Medication Instructions Recorded Confirmed Type Acidophilus/Bulgaricus [Lactinex] 1 tab PO DAILY tab.chew 08/04/17 08/28/18 Rx Gabapentin 300 mg PEG QHS #14 cap 08/04/17 08/28/18 Rx sertraline 100 mg tablet 100 mg PO QAM tab 11/18/17 08/28/18 History Lansoprazole [Prevacid] 30 mg FEEDING TUBE QAM #30 11/24/17 08/28/18 Rx amlodipine 10 mg tablet 5 mg PO QAM #90 tab 11/24/17 08/28/18 Rx donepezil 10 mg disintegrating 10 mg PO QHS #30 tab 02/23/18 08/28/18 Rx tablet cephalexin 250 mg/5 mL oral 500 mg PO BID #200 ml 04/08/18 08/28/18 Rx suspension quetiapine 50 mg tablet 50 mg PO ONCE HS #30 tab 04/15/18 08/28/18 Rx trimethoprim 50 mg/5 mL oral 100 mg PO QDAY #473 ml 05/20/18 08/28/18 Rx solution potassium chloride ER 20 mEq 20 meq PO QDAY #30 tab 07/03/18 08/28/18 Rx tablet,extended release albuterol sulfate HFA 90 1 puff INH Q6H PRN #8 g 07/14/18 08/28/18 Rx mcg/actuation aerosol inhaler memantine 10 mg tablet See Rx Instructions .ROUTE 07/28/18 08/28/18 Rx .COMPLEX #60 capsule budesonide 0.5 mg/2 mL suspension See Rx Instructions .ROUTE 07/30/18 08/28/18 Rx for nebulization .COMPLEX #60 milliliter ipratropium-albuterol 0.5 mg-3 See Rx Instructions .ROUTE 07/30/18 08/28/18 Rx mg(2.5 mg base)/3 mL nebulization .COMPLEX #180 milliliter soln lorazepam 0.5 mg tablet See Rx Instructions .ROUTE 08/27/18 08/28/18 Rx .COMPLEX #90 capsule Inhaler,Assist Device,Lg Mask 0 inh .ROUTE .MEDSUPPLY 08/28/18 08/28/18 History [BreatheRite Spacer-Mask,Adult] Allergies/Adverse Reactions: Allergies Allergy/AdvReac Type Severity Reaction Status Date / Time Penicillins Allergy Intermediate HIVES Verified 08/28/18 18:03 Review of Systems - Review of Systems ROS Unobtainable: Due to Mental Status (I cannot obtain a review of systems due to dementia.) Exam - Vitals Vital Signs: Vital Signs Temperature 97.2 F Pulse Rate [Pulse Oximeter] 84 Pulse Rate 58 Respiratory Rate 18 Blood Pressure [Left Arm] 137/82 Blood Pressure 128/69 Pulse Ox 92 Oxygen Flow Rate 2 Oxygen Delivery Method Nasal Cannula Height 5 ft 5 in Weight 130 lb - General General Appearance: No Acute Distress, Cooperative - Head Head Exam: Normocephalic, Laceration(s) (occiput) - Eye Eye Exam: POSITIVE: No Scleral Icterus - ENT ENT Exam: POSITIVE: Mucous Membranes Dry - Neck Neck Exam: Normal Inspection, No Tenderness, No Lymphadenopathy, No Thyromegaly, JVP is not Raised - Respiratory Respiratory Exam: POSITIVE: Breathing Non Labored, Wheezes - Cardiovascular Cardiovascular Exam: POSITIVE: RRR, No Murmur, No Clicks, No Gallops, No Rubs, No JVD - GI/Abdominal GI/Abdominal Exam: POSITIVE: Normal Bowel Sounds, Non Tender, Non Distended, Soft Additional GI/Abdominal Exam Details: PEG tube has no erythema - Rectal Rectal Exam: POSITIVE: Deferred - External Exam: POSITIVE: Deferred Exam: POSITIVE: Deferred - Extremities Extremities Exam: POSITIVE: No Clubbing Present, No Edema Present, No Cyanosis Present - Neurological Neurological Exam: POSITIVE: Alert, No Facial Droop, Speech Intact / Clear - Psychiatric Psychiatric Exam: POSITIVE: Anxious Results - Labs CBC and BMP: 08/28/18 17:50 08/28/18 18:02 Additional Lab Results: Laboratory Results 08/28/18 08/28/18 08/28/18 17:50 17:58 18:02 WBC 9.70 RBC 4.52 Hgb 14.2 Hct 41.1 MCV 90.9 MCH 31.4 H MCHC 34.5 RDW Std Deviation 41.8 RDW Coeff of Reid 12.9 Plt Count 307 MPV 8.9 Immature Gran % (Auto) 0.4 Neut % (Auto) 66.0 Lymph % (Auto) 24.7 [place] % (Auto) 7.1 Eos % (Auto) 1.3 Baso % (Auto) 0.5 Immature Gran # (Auto) 0.04 Neut # (Auto) 6.39 Lymph # (Auto) 2.40 [place] # (Auto) 0.69 Eos # (Auto) 0.13 Baso # (Auto) 0.05 WBC Morphology Comment Normal morphology Plt Morphology Comment Normal morphology RBC Morph Comment Normal morphology Sodium 127 L Potassium 4.2 Chloride 91 L Carbon Dioxide 24 Anion Gap 12 BUN 23 H Creatinine 0.6 BUN/Creatinine Ratio 38.33 H Glucose 107 Calculated Osmolality 267.0 Calcium 9.4 Magnesium 1.8 Total Bilirubin 0.3 AST 37 ALT 14 Alkaline Phosphatase 61 Total Protein 7.8 Albumin 4.5 Globulin 3.2 Albumin/Globulin Ratio 1.40 - Imaging Status: Image Reviewed by Me (I reviewed the images. I read the radiology reports. on my view of the pelvis film, it looks like the head of the femur conchita is out of place on the left. head CT shows a posterior hematoma. chest X-ray looks negative for pneumonia on my view.) Assessment and Plan - Patient Problems (1) Dislocated hip Current Visit: Yes Status: Acute Code(s): S73.006A - Unspecified dislocation of unspecified hip, initial encounter Qualifiers: Encounter type: initial encounter Laterality: left Qualified Code(s): S73.005A - Unspecified dislocation of left hip, initial encounter (2) Hyponatremia Current Visit: Yes Status: Acute Code(s): E87.1 - Hypo-osmolality and hyponatremia (3) Severe anxiety Current Visit: Yes Status: Acute Code(s): F41.9 - Anxiety disorder, unspecified (4) Dementia Current Visit: Yes Status: Chronic Code(s): F03.90 - Unspecified dementia without behavioral disturbance Qualifiers: Dementia type: unspecified type Dementia behavioral disturbance: without behavioral disturbance Qualified Code(s): F03.90 - Unspecified dementia without behavioral disturbance (5) Feeding by G-tube Current Visit: Yes Status: Chronic Code(s): Z93.1 - Gastrostomy status (6) GERD (gastroesophageal reflux disease) Current Visit: Yes Status: Chronic Onset Date: 06/07/13 Code(s): K21.9 - Gastro-esophageal reflux disease without esophagitis Qualifiers: Esophagitis presence: esophagitis presence not specified Qualified Code(s): K21.9 - Gastro-esophageal reflux disease without esophagitis (7) Hypertension, benign Current Visit: Yes Status: Chronic Onset Date: 07/19/14 Code(s): I10 - Essential (primary) hypertension (8) Oropharyngeal dysphagia Current Visit: Yes Status: Chronic Onset Date: 12/25/15 Code(s): R13.12 - Dysphagia, oropharyngeal phase (9) History of left hip replacement Current Visit: Yes Status: Chronic Onset Date: 03/31/15 Code(s): Z96.642 - Presence of left artificial hip joint - Assessment / Plan Additional Assessment/Plan Details: admit inpatient (hypoxia, demented, hip dislocation, urinary frequency--suspect UTI) consult orthopedics--closed reduction of dislocation, brace to be applied place estrella cather and get UA with culture if indicated PT and OT continue home tube feedings (, 400 mL free water)--resume in AM and okay to continue to do daryl drink daily NS tonight, recheck labs tomorrow DNR. if hypoxia does not resolve, may need to get CTA of chest. discussed plan with daughter, patient, son-in-law; daughter and son-in-law agree.
[2018-08-28] MEDS ORDERED: Ondansetron ODT Tab 8 MG TAB PO PRN (22:51)
[2018-08-28] MEDS ORDERED: BISACODYL 10 MG SUPPOSITORY RECTAL PRN (22:51)
[2018-08-28] MEDS ORDERED: diphenhydrAMINE 25 MG CAPSULE PO PRN (22:51)
[2018-08-28] MEDS ORDERED: CALCIUM CARBONATE 500 MG (TUMS) CHEWABLE TABLET PO PRN (22:51)
[2018-08-28] MEDS ORDERED: Prochlorperazine Tab 10 MG TAB PO PRN (22:51)
[2018-08-28] MEDS ORDERED: BISACODYL 5 MG TABLET PO PRN (22:51)
[2018-08-28] MEDS ORDERED: MAG HYDROX/AL HYDROX/SIMETH 30 ML SUSP PO PRN (22:51)
[2018-08-28] MEDS ORDERED: ONDANSETRON 4 MG/2 ML VIAL IVP PRN (22:51)
[2018-08-28] MEDS ORDERED: Lactated Ringers 1,000 ML PRIMARY IV SCH (22:51)
[2018-08-28] MEDS ORDERED: LIDOCAINE HCL 2 % 10 ML JELLY URO-JECT TOPICAL PRN (23:04)
[2018-08-28] MEDS ORDERED: ALBUTEROL SULFATE 2.5 MG/3 ML NEB PRN (23:05)
[2018-08-28] MEDS: Sodium Chloride 0.9% 1,000 ML PRIMARY IV SCH (23:29)
[2018-08-28] MEDS: DOCUSATE 100 MG CAPSULE PO SCH (23:54)
[2018-08-28] MEDS: BUDESONIDE 0.5 MG/2 ML NEB SCH ×2 (23:54→23:55)
[2018-08-28] MEDS: QUEtiapine Tab 25 MG TAB PO SCH (23:59)
[2018-08-29] MEDS: Esomeprazole DR 20mg Capsule PO SCH ×2 (00:01→09:24)
[2018-08-29] MEDS: DONEPEZIL HCL 10 MG PO SCH ×2 (00:01→21:15)
[2018-08-29] MEDS: POTASSIUM CHLORIDE 20 MEQ TAB PO SCH ×3 (00:51→20:30)
[2018-08-29 05:06] LABS: Hematocrit [HCT] 35.8 % (37.0-47.0); Hemoglobin [HGB] 12.2 g/dL (12.0-16.0); MEAN CORPUSCULAR HEMOGLOBIN 31.2 PG (27-31); MEAN CORPUSCULAR HGB CONC 34.1 g/dL (33-37); MEAN CORPUSCULAR VOLUME 91.6 FL (81-99); RED BLOOD COUNT 3.91 10^6/uL (4.20-5.40)
[2018-08-29 05:17] LABS: BILIRUBIN,URINE NEGATIVE (NEG); CLARITY,URINE CLEAR (CLEAR); COLOR,URINE YELLOW (Y); GLUCOSE, URINE (UA) NEGATIVE (NEG); OCCULT BLOOD,URINE Trace-intact (NEG); PH,URINE 6.5 (5.0-8.5); PROTEIN,URINE TRACE mg/dl (NEG); UROBILINOGEN,URINE 0.2 EU/dL (0.2)
[2018-08-29 05:23] LABS: BLOOD UREA NITROGEN 17 mg/dL (7-22)
[2018-08-29 05:25] LABS: BACTERIA,URINE RARE; RBC,URINE 0-2 /hpf; URINE SAMPLE TYPE CATH SPECIMEN
[2018-08-29] MEDS: IPRATROPIUM/ALBUTEROL SULFATE 3 ML NEB NEB SCH ×2 (06:24→18:26)
[2018-08-29] MEDS: BUDESONIDE 0.5 MG/2 ML NEB SCH ×2 (06:29→18:28)
[2018-08-29] MEDS: Sodium Chloride 0.9% 1,000 ML PRIMARY IV SCH ×2 (07:03→16:29)
--- NOTE | 2018-08-29 08:30 | DI ---
EXAM: CT Pelvis Without Intravenous Contrast CLINICAL HISTORY: 82-year-old female with right hip pain and left hip dislocation. TECHNIQUE: Axial computed tomography images of the pelvis without intravenous contrast. Coronal and sagittal reformatted images were created and reviewed. COMPARISON: AP pelvis and two-view left hip 08/28/2018 and 02/17/2015. FINDINGS: Bones/joints: Interval yazidi of anatomic alignment of the cementless left acetabular and femoral components of total hip replacement. Acute appearing, nondisplaced probable avulsion fracture of the left greater trochanter. Superficial soft tissues: Mild to moderate ill-defined superficial subcutaneous fat stranding on the left adjacent to the posterolateral greater trochanter/proximal femoral metadiaphysis. Small fat-containing right indirect inguinal hernia. Imaged pelvis: Colonic diverticulosis. Status post hysterectomy. Pelvic floor relaxation/descent, and sigmoidocele. Satisfactory position of Amaral catheter within the lumen of the mildly distended urinary bladder. IMPRESSION: 1. Status post interval yazidi of normal alignment of prosthetic left hip components. 2. Acute appearing, nondisplaced probable avulsion fracture of the left greater trochanter noted, with adjacent posterolateral ill-defined superficial subcutaneous probable hematoma. 3. No acute abnormality identified to explain the reported right hip pain. 4. Additional incidental findings, including pelvic floor relaxation/descent and sigmoidocele.
[2018-08-29] MEDS ORDERED: Sertraline Tab 50 MG TAB PEG SCH (09:00)
[2018-08-29] MEDS: ACIDOPHILUS/BULGARICUS CHEWABLE TABLET PO SCH (10:01)
[2018-08-29] MEDS: AmLODIPine Tab 5 MG TABLET PO SCH (10:01)
[2018-08-29] MEDS: LANSOPRAZOLE 30 MG SOLUTAB PO SCH (10:02)
[2018-08-29] MEDS: ASPIRIN EC 81 MG TABLET PO SCH (10:02)
[2018-08-29] MEDS: MEMANTINE 10 MG TABLET PO SCH ×2 (10:02→20:37)
[2018-08-29] MEDS: DOCUSATE 100 MG CAPSULE PO SCH (10:02)
[2018-08-29] MEDS: TRIMETHOPRIM PO SCH ×2 (10:36)
[2018-08-29] MEDS: [UNRECOGNIZED DRUG - REMARK] SCH (10:43)
[2018-08-29] MEDS: HYDROcodone-APAP 5 MG -325 MG TABLET PO PRN ×3 (11:14→20:36)
[2018-08-29] MEDS ORDERED: Sertraline Tab 50 MG TAB PO ONE (11:23)
[2018-08-29] MEDS: LORazepam 1 MG TABLET PO SCH ×2 (12:01→20:38)
--- NOTE | 2018-08-29 12:33 | ORTHO.PROG ---
Last Taken Vital Signs: Vital Signs - Last Taken Temperature 97.6 F 08/29/18 07:53 Pulse Rate 58 L 08/29/18 07:53 Respiratory Rate 12 08/29/18 07:53 Blood Pressure 90/59 08/29/18 07:53 Pulse Ox 90 08/29/18 07:53 Subjective: Patient seems to have reasonable pain control on oral medications Objective: Examination shows that her foot is in neutral position does not have any significant evidence of pain with gentle motion of the hip. Motor and sensory exam seems to be nonfocal. Good pulses brisk refill. Amaral is in place. As well as abductor pillow. Laboratory Results 08/28/18 08/28/18 08/28/18 17:50 17:58 18:02 WBC 9.70 RBC 4.52 Hgb 14.2 Hct 41.1 MCV 90.9 MCH 31.4 H MCHC 34.5 RDW Std Deviation 41.8 RDW Coeff of Reid 12.9 Plt Count 307 MPV 8.9 Immature Gran % (Auto) 0.4 Neut % (Auto) 66.0 Lymph % (Auto) 24.7 Saline % (Auto) 7.1 Eos % (Auto) 1.3 Baso % (Auto) 0.5 Immature Gran # (Auto) 0.04 Neut # (Auto) 6.39 Lymph # (Auto) 2.40 Saline # (Auto) 0.69 Eos # (Auto) 0.13 Baso # (Auto) 0.05 WBC Morphology Comment Normal morphology Plt Morphology Comment Normal morphology RBC Morph Comment Normal morphology Sodium 127 L Potassium 4.2 Chloride 91 L Carbon Dioxide 24 Anion Gap 12 BUN 23 H Creatinine 0.6 BUN/Creatinine Ratio 38.33 H Glucose 107 Calculated Osmolality 267.0 Calcium 9.4 Magnesium 1.8 Total Bilirubin 0.3 AST 37 ALT 14 Alkaline Phosphatase 61 Total Protein 7.8 Albumin 4.5 Globulin 3.2 Albumin/Globulin Ratio 1.40 Ur Collection Type Urine Color Urine Clarity Urine pH Ur Specific [place] Urine Protein Urine Glucose (UA) Urine Ketones Urine Occult Blood Urine Nitrate Urine Bilirubin Urine Urobilinogen Ur Leukocyte Esterase Urine RBC Urine WBC Ur Squamous Epith Cells Ur Renal Epithelial Cell Urine Crystals Urine Bacteria Urine Casts Urine Mucus Urine Trichomonas Urine Yeast Ur Culture Indicated? 08/29/18 08/29/18 08/29/18 04:25 04:25 05:05 WBC 10.03 RBC 3.91 L Hgb 12.2 Hct 35.8 L MCV 91.6 MCH 31.2 H MCHC 34.1 RDW Std Deviation 41.9 RDW Coeff of Reid 12.8 Plt Count 243 MPV 9.0 Immature Gran % (Auto) Neut % (Auto) Lymph % (Auto) Saline % (Auto) Eos % (Auto) Baso % (Auto) Immature Gran # (Auto) Neut # (Auto) Lymph # (Auto) Saline # (Auto) Eos # (Auto) Baso # (Auto) WBC Morphology Comment Plt Morphology Comment RBC Morph Comment Sodium 129 L Potassium 4.1 Chloride 97 L Carbon Dioxide 24 Anion Gap 8 BUN 17 Creatinine 0.5 BUN/Creatinine Ratio 34.00 H Glucose 113 H Calculated Osmolality 270.0 Calcium 8.5 L Magnesium Total Bilirubin AST ALT Alkaline Phosphatase Total Protein Albumin Globulin Albumin/Globulin Ratio Ur Collection Type Cath specimen Urine Color Yellow Urine Clarity Clear Urine pH 6.5 Ur Specific [place] 1.020 Urine Protein Trace Urine Glucose (UA) Negative Urine Ketones Negative Urine Occult Blood Trace-intact H Urine Nitrate Negative Urine Bilirubin Negative Urine Urobilinogen 0.2 Ur Leukocyte Esterase Negative Urine RBC 0-2 Urine WBC None Ur Squamous Epith Cells None Ur Renal Epithelial Cell None Urine Crystals None Urine Bacteria Rare Urine Casts None Urine Mucus Many Urine Trichomonas None Urine Yeast None Ur Culture Indicated? Culture not set Vital Signs (24 hrs) 08/28/18 18:12 08/28/18 20:40 08/28/18 21:27 Temperature 97.2 F 97.6 F Pulse Rate 64 Pulse Rate [Pulse Oximeter] 70 84 Respiratory Rate 18 18 17 Blood Pressure 148/74 Blood Pressure [Left Arm] 186/78 137/82 Blood Pressure [Right Arm] Pulse Ox 91 92 96 08/28/18 22:00 08/28/18 22:15 08/28/18 22:16 Temperature 97.4 F Pulse Rate 60 58 L 58 L Pulse Rate [Pulse Oximeter] Respiratory Rate 12 16 Blood Pressure 128/72 138/78 128/69 Blood Pressure [Left Arm] Blood Pressure [Right Arm] Pulse Ox 95 95 08/28/18 22:30 08/28/18 22:57 08/28/18 23:02 Temperature 97.4 F 97.2 F Pulse Rate 54 L Pulse Rate [Pulse Oximeter] 59 L 61 Respiratory Rate 16 16 20 Blood Pressure 145/75 Blood Pressure [Left Arm] Blood Pressure [Right Arm] 164/75 Pulse Ox 95 95 08/28/18 23:25 08/29/18 01:00 08/29/18 03:04 Temperature 97.5 F 97.6 F 98.7 F Pulse Rate Pulse Rate [Pulse Oximeter] 59 L 60 65 Respiratory Rate 18 18 20 Blood Pressure Blood Pressure [Left Arm] Blood Pressure [Right Arm] 152/68 127/56 111/58 Pulse Ox 92 95 92 08/29/18 04:31 08/29/18 06:24 08/29/18 06:25 Temperature Pulse Rate 66 68 Pulse Rate [Pulse Oximeter] Respiratory Rate 16 16 Blood Pressure Blood Pressure [Left Arm] Blood Pressure [Right Arm] Pulse Ox 91 93 08/29/18 06:29 08/29/18 06:30 08/29/18 07:53 Temperature 97.6 F Pulse Rate 66 68 Pulse Rate [Pulse Oximeter] 58 L Respiratory Rate 16 16 12 Blood Pressure Blood Pressure [Left Arm] 90/59 Blood Pressure [Right Arm] Pulse Ox 90 CAT scan of the pelvis show no evidence of fracture of the pelvis on the right including femoral head and neck region. The left hip is located there is a small avulsion fracture on the tip of the greater trochanteric region dorsally think this is well above the abductor insertion. No interposed tissue well located joint. The acetabular cup is in a reasonable anteverted position however the version of the cup in a coronal plane is rather significant it looks like it's somewhere around 75-80. There is a screw in place I don't think the cup has necessarily moved from the time of initial insertion but difficult to assess I don't see a broken screw. Generally on the x-rays it looks like the cup is well fixed. Assessment: Left total hip dislocation with closed reduction and greater trochanteric fracture Plan: At this point patient will continue with the abductor pillow until the abduction brace is available and we'll utilize a Amaral in order to minimize up-and-down in risk of re-dislocations. She will work with therapy concentrating on keeping the foot in neutral position. Did spend time discussing with the family issues in regard to long-term stability of the hip but this would require a surgical intervention by total joint surgeon who does revisions. At the current time we will continue to moving the direction of the abduction brace protection immobilization once we have this available. In the meantime we will progress with mobilization but under very controlled circumstances to prevent reinjury. Have discussed this with the therapist.
--- NOTE | 2018-08-29 18:57 | PDOC(PROG) ---
Date of Service: 08/29/18 Time of Service: 18:52 Interval History: patient seen, evaluated earlier in day. d/w ortho. no chest pain, no trouble breathing. no complaints of hip pain. history very limited by hearing difficulties and dementia. Objective : Data - Labs CBC and BMP: 08/29/18 04:25 08/29/18 04:25 Objective : Exam - General General Appearance: No Acute Distress, Cooperative Additional General Exam Details: Vital Signs - Last Taken Temperature 98 F 08/29/18 17:00 Pulse Rate 61 08/29/18 18:29 Respiratory Rate 14 08/29/18 18:29 Blood Pressure 108/46 08/29/18 17:00 Pulse Ox 96 08/29/18 18:28 - Eye Eye Exam: No Scleral Icterus - ENT ENT Exam: Mucous Membranes Moist - Neck Neck Exam: JVP is not Raised - Respiratory Respiratory Exam: Breathing Non Labored, Wheezes - Cardiovascular Cardiovascular Exam: RRR, No Clicks, No Gallops, No Rubs, No JVD - GI/Abdominal GI/Abdominal Exam: Normal Bowel Sounds, Non Tender, Non Distended, Soft - Exam: Amaral Catheter in Place (urine clear) - Extremities Extremities Exam: No Clubbing Present, No Edema Present, No Cyanosis Present Assessment and Plan - Patient Problems (1) Hyponatremia Current Visit: Yes Status: Acute Code(s): E87.1 - Hypo-osmolality and hyponatremia (2) Dislocated hip Current Visit: Yes Status: Acute Code(s): S73.006A - Unspecified dislocation of unspecified hip, initial encounter Qualifiers: Encounter type: initial encounter Laterality: left Qualified Code(s): S73.005A - Unspecified dislocation of left hip, initial encounter (3) Severe anxiety Current Visit: Yes Status: Acute Code(s): F41.9 - Anxiety disorder, unspecified (4) Dementia Current Visit: Yes Status: Chronic Code(s): F03.90 - Unspecified dementia without behavioral disturbance Qualifiers: Dementia type: unspecified type Dementia behavioral disturbance: without behavioral disturbance Qualified Code(s): F03.90 - Unspecified dementia without behavioral disturbance (5) Feeding by G-tube Current Visit: Yes Status: Chronic Code(s): Z93.1 - Gastrostomy status (6) GERD (gastroesophageal reflux disease) Current Visit: Yes Status: Chronic Onset Date: 06/07/13 Code(s): K21.9 - Gastro-esophageal reflux disease without esophagitis Qualifiers: Esophagitis presence: esophagitis presence not specified Qualified Code(s): K21.9 - Gastro-esophageal reflux disease without esophagitis (7) Hypertension, benign Current Visit: Yes Status: Chronic Onset Date: 07/19/14 Code(s): I10 - Essential (primary) hypertension (8) Oropharyngeal dysphagia Current Visit: Yes Status: Chronic Onset Date: 12/25/15 Code(s): R13.12 - Dysphagia, oropharyngeal phase (9) History of left hip replacement Current Visit: Yes Status: Chronic Onset Date: 03/31/15 Code(s): Z96.642 - Presence of left artificial hip joint - Assessment / Plan Additional Assessment/Plan Details: hip pain is better dehydration improving, but still hyponatremia--continue NS for now. recheck BMP in AM this is a very complex situation as patient's dementia will limit options for joint revision, but may be difficult rehab. I agree with ortho that we should keep catheter in place until abductor brace is in place check thyroid function in AM, though I think the hyponatremia is resultant of dehydration. on Friday, try to discuss with nutrition. patient may need more free water daily? swing bed evaluation--I think a non surgical, conservative approach makes the most sense to allow acutely injured tissues to scar down and hopefully prevent the hip from dislocating again. will be very difficult to provide this at assisted living.
[2018-08-29] MEDS: DONEPEZIL 5 MG TABLET PO SCH (20:30)
[2018-08-29] MEDS: QUEtiapine Tab 25 MG TAB PO SCH (20:34)
[2018-08-29] MEDS: GABAPENTIN 300 MG CAPSULE PO SCH ×2 (20:35)
[2018-08-29] MEDS: IBUPROFEN 400 MG TABLET PO PRN (20:37)
[2018-08-30] MEDS: Sodium Chloride 0.9% 1,000 ML PRIMARY IV SCH (00:35)
[2018-08-30] MEDS: HYDROcodone-APAP 5 MG -325 MG TABLET PO PRN (01:14)
[2018-08-30] MEDS: DOCUSATE 100 MG CAPSULE PO SCH ×3 (01:14→20:06)
[2018-08-30 04:53] LABS: ABG BASE EXCESS -2 MMOL/L (-2-2); ABG OXYGEN SATURATION 95 % (90-100); ABG PCO2 45 MMHG (34-38); ABG PH 7.34 (7.35-7.45); ABG PO2 79 MMHG (65-75)
[2018-08-30 05:08] LABS: Hemoglobin [HGB] 11.4 g/dL (12.0-16.0); MEAN CORPUSCULAR HEMOGLOBIN 31.4 PG (27-31); MEAN CORPUSCULAR HGB CONC 33.5 g/dL (33-37); MEAN CORPUSCULAR VOLUME 93.7 FL (81-99); MEAN PLATELET VOLUME 8.7 FL (7.4-12.2); RED BLOOD COUNT 3.63 10^6/uL (4.20-5.40)
[2018-08-30 05:24] LABS: BLOOD UREA NITROGEN 15 mg/dL (7-22)
[2018-08-30] MEDS: IPRATROPIUM/ALBUTEROL SULFATE 3 ML NEB NEB SCH ×2 (07:18→18:50)
[2018-08-30] MEDS: BUDESONIDE 0.5 MG/2 ML NEB SCH ×2 (07:22→18:50)
[2018-08-30] MEDS: LANSOPRAZOLE 30 MG SOLUTAB PO SCH (07:36)
[2018-08-30] MEDS: [UNRECOGNIZED DRUG - REMARK] SCH (09:09)
[2018-08-30] MEDS: Sertraline Tab 50 MG TAB PEG SCH (09:11)
[2018-08-30] MEDS: LORazepam 1 MG TABLET PO SCH ×2 (09:11→20:07)
[2018-08-30] MEDS: ASPIRIN EC 81 MG TABLET PO SCH (09:12)
[2018-08-30] MEDS: ACIDOPHILUS/BULGARICUS CHEWABLE TABLET PO SCH (09:12)
[2018-08-30] MEDS: MEMANTINE 10 MG TABLET PO SCH ×2 (09:12→20:07)
[2018-08-30] MEDS: AmLODIPine Tab 5 MG TABLET PO SCH (09:12)
[2018-08-30] MEDS: ACETAMINOPHEN 325 MG TABLET PO PRN (12:58)
--- NOTE | 2018-08-30 13:02 | ORTHO.PROG ---
Last Taken Vital Signs: Vital Signs - Last Taken Temperature 97.8 F 08/30/18 12:35 Pulse Rate 62 08/30/18 12:35 Respiratory Rate 20 08/30/18 12:35 Blood Pressure 137/58 08/30/18 12:35 Pulse Ox 93 08/30/18 12:35 Subjective: Patient doing well pain well controlled, stopping narcotics Objective: Leg is in good position patient in abduction pillow awaiting abduction. Rotational leg looks good good motor and sensory exam strong pulses and brisk refill Laboratory Results 08/30/18 08/30/18 08/30/18 04:45 04:54 04:54 WBC 6.89 RBC 3.63 L Hgb 11.4 L Hct 34.0 L MCV 93.7 MCH 31.4 H MCHC 33.5 RDW Std Deviation 43.1 RDW Coeff of Reid 13.0 Plt Count 208 MPV 8.7 ABG pH 7.34 L ABG pCO2 45 H ABG pO2 79 H ABG HCO3 24 ABG Total CO2 25 ABG O2 Saturation 95 ABG Base Excess -2 [place]ie[place] Test pass FiO2 51 Sodium 136 D Potassium 4.5 Chloride 103 Carbon Dioxide 24 Anion Gap 9 BUN 15 Creatinine 0.4 L Estimated GFR [employer] BUN/Creatinine Ratio 37.50 H Glucose 94 Calculated Osmolality 282.0 Calcium 8.2 L TSH Free T4 08/30/18 04:54 WBC RBC Hgb Hct MCV MCH MCHC RDW Std Deviation RDW Coeff of Reid Plt Count MPV ABG pH ABG pCO2 ABG pO2 ABG HCO3 ABG Total CO2 ABG O2 Saturation ABG Base Excess Eliezer Test FiO2 Sodium Potassium Chloride Carbon Dioxide Anion Gap BUN Creatinine Estimated GFR BUN/Creatinine Ratio Glucose Calculated Osmolality Calcium TSH 7.13 H Free T4 0.98 Vital Signs (24 hrs) 08/29/18 17:00 08/29/18 18:26 08/29/18 18:27 Temperature 98 F Pulse Rate 84 61 Pulse Rate [Pulse Oximeter] 59 L Respiratory Rate 24 14 16 Blood Pressure [Left Arm] 108/46 Blood Pressure [Right Arm] Pulse Ox 90 96 08/29/18 18:28 08/29/18 18:29 08/29/18 19:00 Temperature 97.3 F Pulse Rate 84 61 Pulse Rate [Pulse Oximeter] 65 Respiratory Rate 14 14 18 Blood Pressure [Left Arm] 124/55 Blood Pressure [Right Arm] Pulse Ox 96 95 08/29/18 23:50 08/30/18 02:30 08/30/18 03:15 Temperature Pulse Rate Pulse Rate [Pulse Oximeter] 68 63 Respiratory Rate 22 Blood Pressure [Left Arm] 123/55 Blood Pressure [Right Arm] 115/62 Pulse Ox 94 94 90 08/30/18 04:00 08/30/18 04:07 08/30/18 04:45 Temperature 96.6 F L Pulse Rate Pulse Rate [Pulse Oximeter] 52 L 52 L Respiratory Rate 20 16 Blood Pressure [Left Arm] 115/62 100/43 Blood Pressure [Right Arm] 106/57 Pulse Ox 91 08/30/18 04:51 08/30/18 05:01 08/30/18 05:10 Temperature Pulse Rate Pulse Rate [Pulse Oximeter] 52 L 55 L Respiratory Rate 16 16 Blood Pressure [Left Arm] 112/53 92/46 Blood Pressure [Right Arm] 96/53 94/49 Pulse Ox 94 94 08/30/18 05:12 08/30/18 05:36 08/30/18 05:48 Temperature Pulse Rate Pulse Rate [Pulse Oximeter] 43 L 56 L 54 L Respiratory Rate 16 18 18 Blood Pressure [Left Arm] 107/48 106/56 109/52 Blood Pressure [Right Arm] Pulse Ox 93 08/30/18 05:57 08/30/18 06:10 08/30/18 07:00 Temperature Pulse Rate Pulse Rate [Pulse Oximeter] 52 L 62 59 L Respiratory Rate 18 16 Blood Pressure [Left Arm] 115/47 112/57 Blood Pressure [Right Arm] Pulse Ox 97 08/30/18 07:18 08/30/18 07:19 08/30/18 07:22 Temperature Pulse Rate 60 59 L 60 Pulse Rate [Pulse Oximeter] Respiratory Rate 22 18 22 Blood Pressure [Left Arm] Blood Pressure [Right Arm] Pulse Ox 96 96 08/30/18 07:23 08/30/18 09:00 08/30/18 12:35 Temperature 97.8 F 97.8 F Pulse Rate 59 L Pulse Rate [Pulse Oximeter] 57 L 62 Respiratory Rate 18 16 20 Blood Pressure [Left Arm] Blood Pressure [Right Arm] 131/71 137/58 Pulse Ox 98 93 Assessment: Left hip dislocation status post total hip replacement overall doing well Plan: Patient will continue with physical therapy with mobilization but making sure not to excessively externally rotate the leg and foot I would try to keep the knee In a neutral position straight ahead as well as a foot and ankle as a guide. We should have the abduction brace available either Friday or Friday she was measured yesterday but being Easter having a get here likely be best case Friday but more likely Friday. Continue with current plan of treatment
--- NOTE | 2018-08-30 16:56 | PDOC(PROG) ---
Date of Service: 08/30/18 Time of Service: 16:52 Interval History: seen, evaluated earlier today no chest pain not short of breath daughter reports patient doing well, but more tired, thinks pain medications might be too much. Objective : Data - Labs CBC and BMP: 08/30/18 04:54 08/30/18 04:54 Additional Lab Results: 08/30/18 08/30/18 04:45 04:54 ABG pH 7.34 L ABG pCO2 45 H ABG HCO3 24 TSH 7.13 H Free T4 0.98 Objective : Exam - General General Appearance: No Acute Distress, Cooperative Additional General Exam Details: Vital Signs - Last Taken Temperature 97 F 08/30/18 16:44 Pulse Rate 63 08/30/18 16:44 Respiratory Rate 20 08/30/18 16:44 Blood Pressure 130/55 08/30/18 16:44 Pulse Ox 90 08/30/18 16:44 - Eye Eye Exam: No Scleral Icterus - ENT ENT Exam: Mucous Membranes Moist - Neck Neck Exam: JVP is not Raised - Respiratory Respiratory Exam: Breathing Non Labored, Coarse Breath Sounds - Cardiovascular Cardiovascular Exam: RRR, No Murmur, No Clicks, No Gallops, No Rubs, No JVD - GI/Abdominal GI/Abdominal Exam: Normal Bowel Sounds, Non Tender, Non Distended, Soft - Extremities Extremities Exam: No Clubbing Present, No Edema Present, No Cyanosis Present - Neurological Neurological Exam: Alert, No Facial Droop, Speech Intact / Clear, Moves All Extremities Equally Assessment and Plan - Patient Problems (1) Hyponatremia Current Visit: Yes Status: Acute Code(s): E87.1 - Hypo-osmolality and hyponatremia (2) Dislocated hip Current Visit: Yes Status: Acute Code(s): S73.006A - Unspecified dislocation of unspecified hip, initial encounter Qualifiers: Encounter type: initial encounter Laterality: left Qualified Code(s): S73.005A - Unspecified dislocation of left hip, initial encounter (3) Severe anxiety Current Visit: Yes Status: Acute Code(s): F41.9 - Anxiety disorder, unspecified (4) Dementia Current Visit: Yes Status: Chronic Code(s): F03.90 - Unspecified dementia without behavioral disturbance Qualifiers: Dementia type: unspecified type Dementia behavioral disturbance: without behavioral disturbance Qualified Code(s): F03.90 - Unspecified dementia without behavioral disturbance (5) Feeding by G-tube Current Visit: Yes Status: Chronic Code(s): Z93.1 - Gastrostomy status (6) GERD (gastroesophageal reflux disease) Current Visit: Yes Status: Chronic Onset Date: 06/07/13 Code(s): K21.9 - Gastro-esophageal reflux disease without esophagitis Qualifiers: Esophagitis presence: esophagitis presence not specified Qualified Code(s): K21.9 - Gastro-esophageal reflux disease without esophagitis (7) Hypertension, benign Current Visit: Yes Status: Chronic Onset Date: 07/19/14 Code(s): I10 - Essential (primary) hypertension (8) Oropharyngeal dysphagia Current Visit: Yes Status: Chronic Onset Date: 12/25/15 Code(s): R13.12 - Dysphagia, oropharyngeal phase (9) History of left hip replacement Current Visit: Yes Status: Chronic Onset Date: 03/31/15 Code(s): Z96.642 - Presence of left artificial hip joint - Assessment / Plan Additional Assessment/Plan Details: was bradycardic, more hypoxic overnight. question related to sleep apnea? also, TSH elevated (subclinical hypothyroidism) but high enough I think patient would benefit from thyroid replacement. no further IV fluids PT and OT swing bed start synthroid we confirmed other medications with patient's daughter. these have helped the patient's severe anxiety, dementia, and have improved her quality of life when I speak with the patient's daughter.
[2018-08-30] MEDS: IBUPROFEN 400 MG TABLET PO PRN (17:44)
[2018-08-30] MEDS: QUEtiapine Tab 25 MG TAB PO SCH (20:06)
[2018-08-30] MEDS: POTASSIUM CHLORIDE 20 MEQ TAB PO SCH (20:06)
[2018-08-30] MEDS: DONEPEZIL 5 MG TABLET PO SCH (20:06)
[2018-08-30] MEDS: GABAPENTIN 300 MG CAPSULE PO SCH (20:07)
[2018-08-30] MEDS: DONEPEZIL HCL 10 MG PO SCH (21:04)
[2018-08-31 04:14] LABS: Hematocrit [HCT] 34.7 % (37.0-47.0); Hemoglobin [HGB] 11.8 g/dL (12.0-16.0); MEAN CORPUSCULAR HEMOGLOBIN 31.9 PG (27-31); MEAN CORPUSCULAR VOLUME 93.8 FL (81-99); MEAN PLATELET VOLUME 8.7 FL (7.4-12.2); RED BLOOD COUNT 3.7 10^6/uL (4.20-5.40)
[2018-08-31 04:24] LABS: BLOOD UREA NITROGEN 17 mg/dL (7-22)
[2018-08-31] MEDS: LEVOTHYROXINE 25 MCG TABLET PO SCH (04:30)
[2018-08-31] MEDS: IPRATROPIUM/ALBUTEROL SULFATE 3 ML NEB NEB SCH ×2 (06:45→18:52)
[2018-08-31] MEDS: BUDESONIDE 0.5 MG/2 ML NEB SCH ×2 (06:47→18:53)
[2018-08-31] MEDS: ACETAMINOPHEN 325 MG TABLET PO PRN (07:35)
[2018-08-31] MEDS: LANSOPRAZOLE 30 MG SOLUTAB PO SCH (07:37)
[2018-08-31] MEDS: AmLODIPine Tab 5 MG TABLET PO SCH (09:07)
[2018-08-31] MEDS: MEMANTINE 10 MG TABLET PO SCH ×2 (09:07→20:36)
[2018-08-31] MEDS: [UNRECOGNIZED DRUG - REMARK] SCH (09:07)
[2018-08-31] MEDS: DOCUSATE 100 MG CAPSULE PO SCH (09:07)
[2018-08-31] MEDS: LORazepam 1 MG TABLET PO SCH ×2 (09:07→20:36)
[2018-08-31] MEDS: ASPIRIN EC 81 MG TABLET PO SCH (09:08)
[2018-08-31] MEDS: ACIDOPHILUS/BULGARICUS CHEWABLE TABLET PO SCH (09:08)
[2018-08-31] MEDS: Sertraline Tab 50 MG TAB PEG SCH (09:09)
--- NOTE | 2018-08-31 11:32 | OT.PROG ---
Progress Note Progress Note: S: pt stated that she had a stomach ache but agreed to some light therapy. O: tx consisted of UE red RTB exercises in all planes x10, UE AROM in all planes x10. A: pt is fatigued and needed MOD VCs to completed exercises. P: continue POC
--- NOTE | 2018-08-31 12:48 | PDOC(PROG) ---
Date of Service: 08/31/18 Time of Service: 12:45 Interval History: Patient seen and evaluated earlier today. No chest pain, shortness breath, or nausea. She states that her stomach "hurts". Has not had a bowel movement according to the RN. Complains of hip soreness Objective : Data - Labs CBC and BMP: 08/31/18 04:10 08/31/18 04:10 Objective : Exam - General General Appearance: No Acute Distress, Cooperative Additional General Exam Details: Vital Signs - Last Taken Temperature 97.4 F 08/31/18 11:51 Pulse Rate 66 08/31/18 11:51 Respiratory Rate 18 08/31/18 11:51 Blood Pressure 116/58 08/31/18 11:51 Pulse Ox 93 08/31/18 11:51 - Eye Eye Exam: No Scleral Icterus - ENT ENT Exam: Mucous Membranes Moist - Neck Neck Exam: JVP is not Raised - Respiratory Respiratory Exam: Breathing Non Labored, Coarse Breath Sounds - Cardiovascular Cardiovascular Exam: RRR, No Murmur, No Clicks, No Gallops, No Rubs, No JVD - GI/Abdominal GI/Abdominal Exam: Normal Bowel Sounds, Non Tender, Non Distended, Soft - Extremities Extremities Exam: No Clubbing Present, No Edema Present, No Cyanosis Present - Neurological Neurological Exam: Alert, No Facial Droop, Speech Intact / Clear, Moves All Extremities Equally, Altered Assessment and Plan - Patient Problems (1) Dislocated hip Current Visit: Yes Status: Acute Code(s): S73.006A - Unspecified dislocation of unspecified hip, initial encounter Qualifiers: Encounter type: initial encounter Laterality: left Qualified Code(s): S73.005A - Unspecified dislocation of left hip, initial encounter (2) History of left hip replacement Current Visit: Yes Status: Chronic Onset Date: 03/31/15 Code(s): Z96.642 - Presence of left artificial hip joint (3) Severe anxiety Current Visit: Yes Status: Acute Code(s): F41.9 - Anxiety disorder, unspecified (4) Dementia Current Visit: Yes Status: Chronic Code(s): F03.90 - Unspecified dementia without behavioral disturbance Qualifiers: Dementia type: unspecified type Dementia behavioral disturbance: without be havioral disturbance Qualified Code(s): F03.90 - Unspecified dementia without behavioral disturbance (5) Feeding by G-tube Current Visit: Yes Status: Chronic Code(s): Z93.1 - Gastrostomy status (6) GERD (gastroesophageal reflux disease) Current Visit: Yes Status: Chronic Onset Date: 06/07/13 Code(s): K21.9 - Gastro-esophageal reflux disease without esophagitis Qualifiers: Esophagitis presence: esophagitis presence not specified Qualified Code(s): K21.9 - Gastro-esophageal reflux disease without esophagitis (7) Hypertension, benign Current Visit: Yes Status: Chronic Onset Date: 07/19/14 Code(s): I10 - Essential (primary) hypertension (8) Oropharyngeal dysphagia Current Visit: Yes Status: Chronic Onset Date: 12/25/15 Code(s): R13.12 - Dysphagia, oropharyngeal phase (9) Hyponatremia Current Visit: Yes Status: Acute Code(s): E87.1 - Hypo-osmolality and hyponatremia (10) Constipation Current Visit: Yes Status: Acute Code(s): K59.00 - Constipation, unspecified - Assessment / Plan Additional Assessment/Plan Details: May go ahead and add enema today. Increase milk of magnesia. Continue PT and OT, await hip brace. Swing bed evaluation
[2018-08-31] MEDS ORDERED: Fleet Enema w/Mineral Oil 133ml RECTAL PRN (12:49)
[2018-08-31] MEDS ORDERED: MAGNESIUM 400 MG/5 ML - 30 ML (MILK OF MAGNESIA) PO ONE (12:49)
--- NOTE | 2018-08-31 13:00 | OTI REPORT ---
Thank you for the referral of Kellie Bello. She was seen on 08/29/18 for an occupational therapy inpatient evaluation secondary to a left anterior hip dislocation. SUBJECTIVE: The patient is an 82-year-old female who is currently living at an assisted living facility in [facility] with her . The patient is on a feeding tube secondary to aspiration pneumonia. The patient has a history of chronic UTIs. The patient ambulated with a four wheeled walker at prior level of function. She receives assistance at home from [employer] staff to help get her up in the morning. They also assist with showering tasks. The patient's family comes in twice a day to perform her feeding tasks and medication management to assist with crushing the meds to go into her feeding tube. Typically the patient does have a daryl drink around lunchtime; however, her daughter reports that she is not going to be doing that right now due to an increased cough. The patient does report pretty significant pain in her left hip, especially when she coughs. The patient had a closed reduction yesterday performed by Dr. Rendon. Orders currently stand as anterior hip precautions and a hip abduction brace. No hip abduction brace is available right now; however, the patient does have an abductor pillow in place to assist with following precautions. At prior level of function the patient was independent with toileting tasks and required assistance for dressing and showering tasks due to cognition. The patient has received therapy in the past due to increased weakness. PAST MEDICAL HISTORY: Past medical history can be found in the patient's medical record. OBJECTIVE FINDINGS: General observations: The patient is very confused today and is very hard of hearing. She has difficulty following one step verbal commands. The patient's daughter reports that the confusion is increased somewhat; however, she is confused on a daily basis due to dementia. The patient is currently on 4 liters of oxygen; however, she is not on oxygen at home. Bed mobility: The patient demonstrated the ability to move from sitting propped up in bed to sitting edge of bed with max assist x2 while following precautions. Ambulation: The patient ambulated two steps to the recliner chair with max assist x2 and max verbal cues. Transfers: The patient transferred from stand to sit and required max assist x2 to reposition in the chair. The patient was positioned with abductor pillow in place and oxygen in place. Range of motion: The patient demonstrated upper extremity range of motion within functional limits and upper extremity strength at 3+ to 4/5 bilaterally in the shoulder, elbow, hand, and wrist. ASSESSMENT: Rehab potential is fair. The patient may benefit from skilled occupational therapy to improve upper extremity strength, functional mobility tasks, safety, and ADL task performance. Problem List: Decreased upper extremity strength Decreased functional mobility Decreased ability to follow hip precautions Decreased ability to complete ADLs Occupational Therapy Goals: To be met by discharge from inpatient: Patient will increase bilateral upper extremity strength by one manual muscle grade. Patient will improve standing balance/activity tolerance to stand at the sink x5 minutes to complete standing grooming tasks. Patient will be fitted with a hip abduction brace to assist with following precautions of no external rotation, no leg crossing, and no hip extension on the left side. Patient will demonstrate the ability to complete a toileting task with verbal cues for safety and will independently perform hygiene, pants management, and transfer with adaptive equipment as needed. Patient will be able to complete lower and upper extremity dressing tasks with minimal assistance. Patient will be able to complete all functional transfers to include bed/chair/toilet with stand by assistance only for safety. TREATMENT PLAN: Patient will be seen B.I.D during the week and one time per day over the weekend as an inpatient to address the above goals and objectives. INITIAL TREATMENT: Treatment today consisted of the initial evaluation followed by functional mobility tasks and moving the patient to the recliner chair. Nursing staff was notified of the anterior hip precautions and the patient's status and performance. EMILY
[2018-08-31] MEDS: IBUPROFEN 100 MG/5 ML CUP PO PRN ×2 (13:20→20:35)
--- NOTE | 2018-08-31 15:02 | OT AM DAY ---
Diagnosis : Left Hip Dislocation AM - Occupational Therapy S: The patient reports she is doing okay. She reports no pain while resting in bed and minimal pain with movement. The patient's daughter reports that she has been very sleepy this morning secondary to having a lot of pain medication. She also states she was having some blood pressure issues this morning. O: Blood pressure and oxygen were within normal limits prior to starting treatment. The patient was sitting propped up in bed upon therapy team arrival with abductor pillow in place. Abductor pillow was removed and the patient was given one step verbal directives and moved to sitting edge of bed with mod assist x2 with assistance to keep her left lower extremity in a neutral position while being assisted to twist her upper torso. The patient completed a sit to stand transfer from the edge of bed with mod assist x2. The patient ambulated approximately three feet to the recliner chair with one step verbal directives and tactile cues to move each leg independently. The patient demonstrated the ability to maintain her foot in a neutral position with verbal and tactile cues during the transfer. The patient transferred to recliner chair and was made comfortable with abductor pillow in place. The patient completed upper extremity activities while sitting propped up in her chair including shoulder flexion to 75% of full x15, shoulder abduction x15, and bilateral shoulder shrugs. The patient also performed a grooming task in the seated position of washing her face. The patient was left with call light within reach, chair alarm set, and bedside table in place. A: The patient does require very simple one step verbal directives and does get confused. She does demonstrate increased apprehensiveness with movement and struggles to keep her hands on the walker; she wants to lean forward instead of maintaining an upright position during the functional transfers. She did have minimal pain; however, when she returned to her recliner she reported no pain. P: Continue seeing patient BID during the week and one time per day over the weekend for upper extremity strengthening, ADLs, and overall functional mobility. EMILY
--- NOTE | 2018-08-31 15:16 | PT.PROG ---
Progress Note Progress Note: S. Patient stated that she would like to get back in bed. O. Patient performed seated long arc quads, heel toe raises, and seated marches all x 10 bilaterally. Patient then transferred 3 steps to the bed and was left with alarm and call light. A. Patient tolerated open chain exercises fair, she was very confused and required frequent verbal cues to complete all exercises. Patient required mod assist x 2 with transfer to the bed. Patient would continue to benefit from skilled therapy to increase strength, mobility and safety at this time. P. Continue POC.
--- NOTE | 2018-08-31 15:41 | ORTHO.PROG ---
Last Taken Vital Signs: Vital Signs - Last Taken Temperature 97.4 F 08/31/18 11:51 Pulse Rate 66 08/31/18 11:51 Respiratory Rate 18 08/31/18 11:51 Blood Pressure 116/58 08/31/18 11:51 Pulse Ox 93 08/31/18 11:51 Subjective: Pain control reasonably well and left hip Objective: Motor and sensory exam is nonfocal motion is reasonable trouble mobilizing secondary to acute pain from dislocation. Motor and sensory exam is nonfocal. Laboratory Results 08/31/18 08/31/18 04:10 04:10 WBC 9.94 RBC 3.70 L Hgb 11.8 L Hct 34.7 L MCV 93.8 MCH 31.9 H MCHC 34.0 RDW Std Deviation 43.2 RDW Coeff of Reid 13.2 Plt Count 219 MPV 8.7 Sodium 136 Potassium 4.5 Chloride 99 Carbon Dioxide 28 Anion Gap 9 BUN 17 Creatinine 0.5 BUN/Creatinine Ratio 34.00 H Glucose 108 Calculated Osmolality 284.0 Calcium 8.6 L Vital Signs (Last 8 hours) Temp Pulse Resp BP Pulse Ox 08/31/18 11:51 97.4 F 66 18 116/58 93 Assessment: A left total hip replacement with dislocation anterior superiorly overall doing well Plan: Abduction brace should be available tomorrow she will be fitted. Hopefully with this in place months pain mobilization will improve. The goal is to get her back to assisted living. We'll continue with physical therapy and occupational therapy at the current time.
--- NOTE | 2018-08-31 16:09 | PTI REPORT ---
Thank you for the referral of Kellie Bello. She was seen on 08/31/18 for an inpatient evaluation status post closed left hip reduction. SUBJECTIVE: The patient is an 82-year-old female. At the time of the subjective portion of the evaluation, the patient appeared confused and the majority of the subjective evaluation was found from the nursing notes, which states that she was found in her bathroom after a fall and was transported via ambulance to the hospital where she required a closed reduction of her left hip under Dr. Rendon. He has since ordered a hip abduction brace which we contacted Eder Rivas with and the brace will be available for her on either Friday or Friday. The nursing staff states she is very hesitant about any weight-bearing on the left lower extremity and at times appears confused as to why her hip even hurts. The patient is well known to our department and does demonstrate dementia type cognition. The therapist was contacted by the hospital on 08/29/18. The therapist did contact Eder Rivas with [facility] and gave the appropriate height/weight and dress measurements for a hip abduction brace to be ordered ILIANA for use on her left hip per Dr. Rendon's orders. Dr. Rendon was notified that the brace will not come in until Friday or Friday. PAST MEDICAL HISTORY: Past medical history can be found in the patient's medical record. OBJECTIVE FINDINGS: General observations: The patient does have six butch in her head from a laceration from her fall. Pain: The patient denied having any pain while seated in her chair; however, did complain of pain in her left hip with sit to stand transfers. She is unable to rate her pain on the VAS. Strength/Range of motion: Strength and range of motion were not able to be formally assessed due to the patient being status post hip dislocation as well as the patient's cognitive level. She is able to perform active range of motion of ankles and knees at this time. Transfers: The patient was able to tolerate sit to stand transfers with max assist x1 with constant verbal cues for affirmation. She was able to perform weight-bearing activities for up to one minute with bilateral hand hold assist from the therapist as well as retrograde steps only. Ambulation: Ambulation will not be attempted until her brace comes in. ASSESSMENT: Problem List: Decreased strength Decreased functional mobility Decreased cognition Physical Therapy Goals: To be met by discharge from inpatient: Patient will be able to transfer with mod assist x1 with appropriate assistive device from her chair to her bed. Patient will be able to ambulate up to 5 feet in her hip abduction brace. Patient will be able to perform standing activities for hygiene purposes for 3 minutes or greater. TREATMENT PLAN: Patient will be seen B.I.D during the week and one time per day over the weekend as an inpatient to address the above goals and objectives. INITIAL TREATMENT: Treatment today consisted of the initial evaluation followed by the patient performing three sit to stand transfers with the therapist only and use of a gait belt. We attempted to stand for at least one minute for each sit to stand as well as performing retrograde steps back to the chair, requiring constant verbal cues for safety awareness as well as hand placement when sitting down. While seated in the chair, she was unable to perform unsupported seated activities, needing to lean back, but we did perform long arc quads x15 bilaterally as well as quad sets, glut sets, and ankle pumps. The therapist did educate nursing staff on having them encourage the patient to perform ankle pumps as well as glut sets while sitting in her chair. While nursing was there with the sit to stands, a skin inspection was done and no open areas or redness was noted at this time. EMILY
[2018-08-31] MEDS: ACETAMINOPHEN 650 MG/20.3 ML CUP PO PRN ×2 (17:49→23:30)
[2018-08-31] MEDS: QUEtiapine Tab 25 MG TAB PO SCH (20:36)
[2018-08-31] MEDS: GABAPENTIN 300 MG CAPSULE PO SCH (20:36)
[2018-08-31] MEDS: DONEPEZIL 5 MG TABLET PO SCH (20:36)
[2018-08-31] MEDS: DONEPEZIL HCL 10 MG PO SCH (20:37)
[2018-08-31] MEDS: POTASSIUM CHLORIDE 20 MEQ TAB PO SCH (20:37)
[2018-09-01] MEDS: IBUPROFEN 100 MG/5 ML CUP PO PRN (06:11)
[2018-09-01] MEDS: LEVOTHYROXINE 25 MCG TABLET PO SCH (06:11)
[2018-09-01] MEDS: BUDESONIDE 0.5 MG/2 ML NEB SCH (06:36)
[2018-09-01] MEDS: IPRATROPIUM/ALBUTEROL SULFATE 3 ML NEB NEB SCH (06:37)
[2018-09-01] MEDS: LANSOPRAZOLE 30 MG SOLUTAB PO SCH (07:55)
[2018-09-01 08:28] VITALS: BP 138/58; RESP 20; TEMP 97; O2SAT 92
[2018-09-01] MEDS ORDERED: MAGNESIUM 400 MG/5 ML - 30 ML (MILK OF MAGNESIA) PO SCH (09:00)
[2018-09-01] MEDS: [UNRECOGNIZED DRUG - REMARK] SCH (09:03)
[2018-09-01] MEDS: ASPIRIN EC 81 MG TABLET PO SCH (09:03)
[2018-09-01] MEDS: LORazepam 1 MG TABLET PO SCH (09:04)
[2018-09-01] MEDS: ACIDOPHILUS/BULGARICUS CHEWABLE TABLET PO SCH (09:04)
[2018-09-01] MEDS: AmLODIPine Tab 5 MG TABLET PO SCH (09:04)
[2018-09-01] MEDS: MEMANTINE 10 MG TABLET PO SCH (09:04)
[2018-09-01] MEDS: Sertraline Tab 50 MG TAB PEG SCH (09:04)
[2018-09-01] MEDS: ACETAMINOPHEN 650 MG/20.3 ML CUP PO PRN (09:05)
--- NOTE | 2018-09-01 10:09 | ORTHO.PROG ---
Last Taken Vital Signs: Vital Signs - Last Taken Temperature 97 F 09/01/18 08:28 Pulse Rate 67 09/01/18 08:28 Respiratory Rate 20 09/01/18 08:28 Blood Pressure 138/58 09/01/18 08:28 Pulse Ox 92 09/01/18 08:28 Subjective: Patient denies any pain in left hip Objective: Thigh- foot angle is about 20. She has good flexion of the hip knee and ankle. No demonstrable pain. Gentle rotation does not produce any significant discomfort. Motor and sensory exam is nonfocal Assessment: Status post left hip reduction after left total hip dislocation anterior superior direction. Status post an anterior approach Plan: Patient will continue with physical therapy. Patient will get a hip abduction brace and then be fitted with that. When she is able to mobilize with the brace and protect this over the next 6-8 weeks and I think we can consider getting her back to assisted living.
--- NOTE | 2018-09-01 10:45 | OT.PROG ---
Progress Note Progress Note: S: pt was accompanied by her son in law this morning. She was not very talkative. O: pt was seen in her room and had already been transferred to chair by nursing. She completed Ue exercises with RTB in all planes x10. She also completed active shoulder flex/abd with BUE's x15 all to increase strength and maintain function. A: pt participated well. Her Ue's did demo some fatigue towards end of activities. P: continue per pOC.
--- NOTE | 2018-09-01 10:58 | DCSUMMARY ---
Hospitalization Summary Admit Date: 08/28/2018 Discharge Date: 09/01/18 Primary Diagnosis:: weakness, left hip dislocation Hospital Course: This very pleasant 82-year-old female who has advanced dementia, hypertension, dysphagia, PEG tube status, who has a history of a left hip replacement and had a dislocation. She was admitted, was reduced, but given her high risk of recurrent dislocation, it was felt that the best thing to do would be to have the patient go to the swing bed for further PT/OT, and learning how to use that abduction brace to prevent further dislocation as the patient is not a great surgical candidate for redo hip replacement given her advanced dementia. She's had a Amaral catheter in place to minimize movements until we can get the brace in place. The Amaral catheter will be pulled at that time. Orthopedics, Dr. Rendon, followed and consult on this patient with us. We greatly appreciate his efforts. He did a CT scan to look for any further fractures and there were none. Several imaging studies revealed no other fractures, had bleeds, or other issues. There is no decompensation of her other medical issues during the hospital stay. She did occasionally desaturate at night and I think that was mostly related to her obstructive sleep apnea and pain medications. Her opiates were stopped and she's been maintained on Tylenol and Motrin for pain through the rest of the hospital stay and that seemed to control patient's pain very well. We did find that the patient has subclinical hypothyroidism. Given some of the bradycardia and hypoxia at night, I think it would be worthwhile to treat this. We will start at a low dose of 25 g, and retest TSH and free T4 in 6-8 weeks. Today, no chest pain, shortness breath, nausea or vomiting. Hip is sore. Assessment and Plan: 1. As per discharge assessments noted 2. Disposition: Patient is discharged to swing bed 3. Condition on discharge, stable and improved. 4. Diet: Patient is getting feedings via her PEG tube 5. Activities: resume normal activities 6. Follow-Up: 1. Hospitalist will continue to follow the patient on the swing bed 2. 7. Medications at the Time of Discharge: Active Medications Generic Name Dose Route Start Last Admin Trade Name Freq PRN Reason Stop Dose Admin Acetaminophen 325 - 650 mg 08/31/18 13:15 09/01/18 09:05 Tylenol Liq PO 650 mg Q4H PRN Administration pain or fever Albuterol Sulfate 2.5 mg 08/28/18 23:05 Albuterol Neb Soln 0.083% NEB RTQID PRN Wheezing / Shortness of Breath Albuterol/Ipratropium 3 ml 08/29/18 07:00 09/01/18 06:37 Duoneb Neb Soln NEB 3 ml RTBID DEANNA Administration Amlodipine Besylate 5 mg 08/29/18 09:00 09/01/18 09:04 Norvasc PO 5 mg DAILY DEANNA Administration Aspirin 81 mg 08/29/18 09:00 09/01/18 09:03 Aspirin Ec PO 81 mg DAILY DEANNA Administration Bisacodyl 5 mg 08/28/18 22:51 Dulcolax Tab PO BID PRN Constipation Bisacodyl 10 mg 08/28/18 22:51 Bisac-Evac Supp RECTAL ONCE PRN Constipation Budesonide 0 mg 08/28/18 07:00 09/01/18 06:36 Pulmicort Neb Soln NEB 0.5 mg RTBID DEANNA Administration Calcium Carbonate 1 - 2 tab 08/28/18 22:51 Tums PO Q4H PRN Indigestion Donepezil HCl 10 mg 08/29/18 21:00 08/31/18 20:36 Aricept PO 10 mg BEDTIME DEANNA Administration Gabapentin 300 mg 08/28/18 23:00 08/31/18 20:36 Neurontin PO 300 mg BEDTIME DEANNA Administration Sodium Chloride 25 mls @ 200 mls/hr 08/28/18 22:51 Normal Saline 0.9% IV .Post Infusion PRN No Primary IV for Flush ONLY Ibuprofen 400 mg 08/31/18 13:15 09/01/18 06:11 Motrin Susp PO 400 mg Q6H PRN Administration Pain Lactobacillus Acidoph/Bulgaricus 1 tab 08/29/18 09:00 09/01/18 09:04 Lactinex PO 1 tab DAILY DEANNA Administration Lansoprazole 30 mg 08/29/18 09:30 09/01/18 07:55 Prevacid Solutab Tab PO 30 mg AC BK DEANNA Administration Levothyroxine Sodium 25 mcg 08/31/18 05:30 09/01/18 06:11 Synthroid PO 25 mcg DAILY@0530 DEANNA Administration Lidocaine HCl 10 ml 08/28/18 23:04 Xylocaine Uro-Ject 2% TOPICAL ONCE PRN Discomfort catheter insertion Lorazepam 0.75 mg 08/29/18 11:30 09/01/18 09:04 Ativan Tab PO 0.75 mg DAILY DEANNA Administration Lorazepam 1 mg 08/29/18 21:00 08/31/18 20:36 Ativan Tab PO 1 mg BEDTIME DEANNA Administration Memantine 10 mg 08/29/18 09:00 09/01/18 09:04 Namenda PO 10 mg BID DEANNA Administration Mineral Oil 133 ml 08/31/18 12:49 Fleet Mineral Oil Enema RECTAL ONCE PRN no BM today by 1700 Non-Formulary: 0 mg 08/28/18 23:00 08/31/18 20:37 Donepezil Hcl Odt PO Not Given Tablet 10mg BEDTIME DEANNA Patient Own Med-Non 0 08/29/18 09:00 09/01/18 09:03 Charge Item- N/A 1 Trimethoprim Tablet DAILY DEANNA Administration 100mg Ondansetron HCl 4 mg 08/28/18 22:51 Zofran Inj IVP Q4H PRN NAUSEA / VOMITING Potassium Chloride 20 meq 08/29/18 21:00 08/31/18 20:37 Klor-Con PO 20 meq BEDTIME DEANNA Administration Prochlorperazine Maleate 10 mg 08/28/18 22:51 Compazine PO Q6H PRN NAUSEA Quetiapine Fumarate 50 mg 08/28/18 23:30 08/31/18 20:36 Seroquel Tab PO 50 mg BEDTIME DEANNA Administration Sertraline HCl 150 mg 08/30/18 09:00 09/01/18 09:04 Zoloft PEG 150 mg DAILY DEANNA Administration 8. Time, care, counseling and coordination of care for this discharge is less than 30 minutes. Exam - Vitals Vital Signs: Vital Signs Temperature 97 F Temperature Source Temporal Artery Scan Pulse Rate [Pulse Oximeter] 67 Pulse Rate 60 Respiratory Rate 20 Blood Pressure [Right Arm] 138/58 Blood Pressure [Left Arm] 131/61 Blood Pressure 145/75 Pulse Ox 92 Oxygen Flow Rate 4 Oxygen Delivery Method Nasal Cannula Height 5 ft 5 in Weight 147 lb - General General Appearance: No Acute Distress, Cooperative - Eye Eye Exam: POSITIVE: No Scleral Icterus - Neck Neck Exam: JVP is not Raised - Respiratory Respiratory Exam: POSITIVE: Breathing Non Labored, Coarse Breath Sounds (But improving overall) - Cardiovascular Cardiovascular Exam: POSITIVE: No Clicks, No Gallops, No Rubs, Irregular Rhythm, Systolic Murmur, No JVD - GI/Abdominal GI/Abdominal Exam: POSITIVE: Normal Bowel Sounds, Non Tender, Non Distended, Soft - Extremities Extremities Exam: POSITIVE: No Clubbing Present, No Edema Present, No Cyanosis Present - Neurological Neurological Exam: POSITIVE: Alert, No Facial Droop, Speech Intact / Clear, Moves All Extremities Equally - Psychiatric Psychiatric Exam: POSITIVE: Normal Affect, Normal Mood Data Peritnent Studies: 08/30/18 08/30/18 08/31/18 04:45 04:54 04:10 WBC 9.94 Hgb 11.8 L Hct 34.7 L Plt Count 219 ABG pH 7.34 L ABG pCO2 45 H ABG pO2 79 H ABG HCO3 24 Sodium Potassium Chloride Carbon Dioxide Anion Gap BUN Creatinine Glucose Calculated Osmolality Calcium TSH 7.13 H Free T4 0.98 08/31/18 04:10 WBC Hgb Hct Plt Count ABG pH ABG pCO2 ABG pO2 ABG HCO3 Sodium 136 Potassium 4.5 Chloride 99 Carbon Dioxide 28 Anion Gap 9 BUN 17 Creatinine 0.5 Glucose 108 Calculated Osmolality 284.0 Calcium 8.6 L TSH Free T4 Procedures: [address] [facility] [place] [address] PH: DD: [phone] FAX: [phone] ~DIAGNOSTIC IMAGING REPORT~ Patient: AceKellie : 1935 Sex: F Age: 82 Exam Name: CT Pelvis WO Contrast Exam Date: 08/29/18 Report # : [id number] CPT Code: 04734 EMR/MR #: [id number] Ordering: Jose Rendon Admiting: Jose Rendon MD. Primary: YOLI CARPENTER Attending: Jose Rendon MD. Signed EXAM: CT Pelvis Without Intravenous Contrast CLINICAL HISTORY: 82-year-old female with right hip pain and left hip dislocation. TECHNIQUE: Axial computed tomography images of the pelvis without intravenous contrast. Coronal and sagittal reformatted images were created and reviewed. COMPARISON: AP pelvis and two-view left hip 08/28/2018 and 02/17/2015. FINDINGS: Bones/joints: Interval advent of anatomic alignment of the cementless left acetabular and femoral components of total hip replacement. Acute appearing, nondisplaced probable avulsion fracture of the left greater trochanter. Superficial soft tissues: Mild to moderate ill-defined superficial subcutaneous fat stranding on the left adjacent to the posterolateral greater trochanter/proximal femoral metadiaphysis. Small fat-containing right indirect inguinal hernia. Imaged pelvis: Colonic diverticulosis. Status post hysterectomy. Pelvic floor relaxation/descent, and sigmoidocele. Satisfactory position of Amaral catheter within the lumen of the mildly distended urinary bladder. IMPRESSION: 1. Status post interval advent of normal alignment of prosthetic left hip components. 2. Acute appearing, nondisplaced probable avulsion fracture of the left greater trochanter noted, with adjacent posterolateral ill-defined superficial subcutaneous probable hematoma. 3. No acute abnormality identified to explain the reported right hip pain. 4. Additional incidental findings, including pelvic floor relaxation/descent and sigmoidocele. Dictated By: Lyla Mckoy MD. Signed By: 08/29/18 0830 Lyla Mckoy MD. [address] [facility] [place] [address] PH: DD: [phone] FAX: [phone] ~DIAGNOSTIC IMAGING REPORT~ Patient: Kellie Bello : 1935 Sex: F Age: 82 Exam Name: XR HIP COMPLETE MIN 2VW U/L Exam Date: 08/28/18 Report # : [id number] CPT Code: 55658 EMR/MR #: [id number] Ordering: CHAD ANDREWS Admiting: Primary: YOLI CARPENTER Attending: Signed History: ITS.REASON fall Physician Notes: Tech Comments: Exam: XR PELVIS single image Comparison: 02/17/2015 FINDINGS: No evidence of fracture. The SI joints and pubic symphysis appear within limits. IMPRESSION: No evidence of fracture. Exam: XR LEFT HIP 2 views Comparison: 02/17/2015 FINDINGS: Status post left hip replacement again noted and now appears subluxed/dislocated anterior and lateral. No fracture. Mild heterotopic bone formation again noted. IMPRESSION: Status post left hip replacement again noted and now appears subluxed/dislocated anterior and lateral. No fracture. Dictated By: Bijan Patel MD Signed By: 08/28/182001 Bijan Patel MD Patient Problems - Patient Problem List (1) Dislocated hip Current Visit: Yes Status: Acute Code(s): S73.006A - Unspecified dislocation of unspecified hip, initial encounter Qualifiers: Encounter type: initial encounter Laterality: left Qualified Code(s): S73.005A - Unspecified dislocation of left hip, initial encounter Category: Medical (2) History of left hip replacement Current Visit: Yes Status: Chronic Onset Date: 03/31/15 Code(s): Z96.642 - Presence of left artificial hip joint Category: Surgical (3) Severe anxiety Current Visit: Yes Status: Acute Code(s): F41.9 - Anxiety disorder, unspecified Category: Medical (4) Dementia Current Visit: Yes Status: Chronic Code(s): F03.90 - Unspecified dementia without behavioral disturbance Qualifiers: Dementia type: unspecified type Dementia behavioral disturbance: without behavioral disturbance Qualified Code(s): F03.90 - Unspecified dementia without behavioral disturbance Category: Medical (5) Feeding by G-tube Current Visit: Yes Status: Chronic Code(s): Z93.1 - Gastrostomy status Category: Medical (6) GERD (gastroesophageal reflux disease) Current Visit: Yes Status: Chronic Onset Date: 06/07/13 Code(s): K21.9 - Gastro-esophageal reflux disease without esophagitis Qualifiers: Esophagitis presence: esophagitis presence not specified Qualified Code(s): K21.9 - Gastro-esophageal reflux disease without esophagitis Category: Medical (7) Hypertension, benign Current Visit: Yes Status: Chronic Onset Date: 07/19/14 Code(s): I10 - Essential (primary) hypertension Category: Medical (8) Oropharyngeal dysphagia Current Visit: Yes Status: Chronic Onset Date: 12/25/15 Code(s): R13.12 - Dysphagia, oropharyngeal phase Category: Medical (9) Hyponatremia Current Visit: Yes Status: Acute Code(s): E87.1 - Hypo-osmolality and hyponatremia Category: Medical (10) Constipation Current Visit: Yes Status: Acute Code(s): K59.00 - Constipation, unspecified Category: Medical
--- NOTE | 2018-09-01 11:27 | PT.PROG ---
Progress Note Progress Note: S. Patient stated she needs to use the restroom. O. Patient performed sit to stand transfer and pivot transferred to the commode. Patient then stood x 2 minutes and pivot transferred back to the chair where she was left with nursing. A. patient tolerated sit to stand and pivot transfers fair, she required mod a ssist x 2 for transfers, she would continue to benefit from skilled therapy to increase strength, mobility and safety. P. Continue POC.
--- NOTE | 2018-09-02 16:36 | OT PM DAY ---
Diagnosis : Left Anterior Hip Reduction PM - Occupational Therapy S: The patient reports that she is feeling tired. Her daughter reports that she was confused this afternoon. O: The hip abduction brace still has not arrived. We will just have the patient complete upper extremity strengthening exercises today. She performed yellow theraband resisted biceps curls, internal/external rotation, rows, shoulder extension, and shoulder adduction. The patient completed blue foam block and red putty. A: The patient was a good participant. She did need cues to continue with her exercises as she gets distracted very easily and does perseverate on some things. P: Continue seeing patient BID during the week and one time per day over the weekend for upper extremity strengthening, ADLs, and overall functional mobility. EMILY
== END 2018-09-01 11:40 | DRG 537 ==
LOC: ER 18:03 → OR 21:25 → MED/SURG 21:27 → OPS 21:33 → MED/SURG 22:06
PROVIDERS: ADMIT Orthopaedic Surgery; ATTEND Orthopaedic Surgery

== ENCOUNTER 2019-01-29 14:07 | Inpatient (IN) ==
[2019-01-29] MEDS ORDERED: LIDOCAINE W/ SODIUM BICARB 0.5 ML SYR SUBD PRN (14:57)
[2019-01-29] MEDS ORDERED: DOCUSATE 100 MG CAPSULE PO PRN (14:57)
[2019-01-29] MEDS ORDERED: CALCIUM CARBONATE 500 MG (TUMS) CHEWABLE TABLET PO PRN (14:57)
[2019-01-29] MEDS ORDERED: ONDANSETRON 4 MG/2 ML VIAL IVP PRN (14:57)
[2019-01-29] MEDS ORDERED: SPACER SCH (15:00)
[2019-01-29] MEDS ORDERED: [UNRECOGNIZED DRUG - OTHER] SCH (15:00)
[2019-01-29] MEDS ORDERED: LORazepam 1 MG TABLET PO PRN (16:30)
[2019-01-29] MEDS ORDERED: PANTOPRAZOLE IV 40 MG VIAL IVP ONE (18:53)
[2019-01-29] MEDS ORDERED: ALBUTEROL SULFATE 2.5 MG/3 ML NEB PRN (19:00)
[2019-01-29 19:15] LABS: BASOPHILS # (AUTO) 0.03 10*3/UL; BASOPHILS % (AUTO) 0.4 % (0-1); EOSINOPHILS # (AUTO) 0.06 10*3/UL; EOSINOPHILS % (AUTO) 0.8 % (0-8); Hematocrit [HCT] 36.3 % (37.0-47.0); Hemoglobin [HGB] 12.2 g/dL (12.0-16.0); LYMPHOCYTES # (AUTO) 2.61 10*3/uL; MEAN CORPUSCULAR HGB CONC 33.8 g/dL (33-37); MEAN CORPUSCULAR VOLUME 94 FL (81-99); MEAN PLATELET VOLUME 7.4 FL (7.4-12.2); MONOCYTES % (AUTO) 6.9 % (5-15); NEUTROPHILS # (AUTO) 4.01 10*3/UL; NEUTROPHILS % (AUTO) 55.7 % (50-80); RED BLOOD COUNT 3.84 10^6/uL (4.20-5.40)
[2019-01-29 19:16] LABS: PLATELET MORPHOLOGY COMMENT NORMAL MORPHOLOGY (NORM); RBC MORPHOLOGY COMMENT NORMAL MORPHOLOGY (NORM); WBC MORPHOLOGY COMMENT NORMAL MORPHOLOGY (NORM)
[2019-01-29 19:25] LABS: SERUM ALBUMIN 3.7 g/dL (3.5-4.8)
[2019-01-29] MEDS: Fluconazole 200mg (Premix) 200 MG/100 ML BAG IV SCH (19:36)
[2019-01-29] MEDS: GLYCERIN PRIMARY IV SCH (19:42)
[2019-01-29] MEDS: [UNRECOGNIZED DRUG - OTHER] PRIMARY IV SCH (19:42)
[2019-01-29] MEDS: ELECTROLYTE PRIMARY IV SCH (19:42)
[2019-01-29] MEDS: OCTREOTIDE ACETATE 50 MCG/1 ML VIAL OR AMP IVP SCH (20:36)
[2019-01-29] MEDS: cefTRIAXone Inj 2 GM in Sodium Chloride 0.9% 100 ML IV SCH (20:37)
[2019-01-29] MEDS ORDERED: QUEtiapine Tab 25 MG TAB PO SCH (21:00)
[2019-01-29] MEDS ORDERED: MEMANTINE 10 MG TABLET PO SCH (21:00)
[2019-01-29] MEDS ORDERED: DONEPEZIL 5 MG TABLET PO SCH (21:00)
[2019-01-29] MEDS ORDERED: GABAPENTIN 300 MG CAPSULE PO SCH (21:00)
[2019-01-29] MEDS: metroNIDAZOLE 500mg (Premix) 500 MG/100 ML BAG IV SCH (21:12)
[2019-01-29] MEDS: LORazepam 2 MG/1 ML VIAL IVP SCH (21:12)
[2019-01-29] MEDS: IPRATROPIUM/ALBUTEROL SULFATE 3 ML NEB NEB SCH (21:44)
[2019-01-29] MEDS: BUDESONIDE 0.5 MG/2 ML NEB SCH (21:44)
[2019-01-30] MEDS: ELECTROLYTE PRIMARY IV SCH ×3 (03:06→18:36)
[2019-01-30] MEDS: [UNRECOGNIZED DRUG - OTHER] PRIMARY IV SCH ×3 (03:06→18:36)
[2019-01-30] MEDS: GLYCERIN PRIMARY IV SCH ×3 (03:06→18:36)
[2019-01-30] MEDS: OCTREOTIDE ACETATE 50 MCG/1 ML VIAL OR AMP IVP SCH ×3 (03:07→19:52)
[2019-01-30] MEDS: metroNIDAZOLE 500mg (Premix) 500 MG/100 ML BAG IV SCH ×3 (04:34→23:23)
[2019-01-30 05:10] LABS: BASOPHILS % (AUTO) 0.4 % (0-1); EOSINOPHILS % (AUTO) 1.1 % (0-8); Hematocrit [HCT] 38.1 % (37.0-47.0); Hemoglobin [HGB] 12.8 g/dL (12.0-16.0); MEAN CORPUSCULAR HGB CONC 33.5 g/dL (33-37); MEAN CORPUSCULAR VOLUME 95 FL (81-99); MONOCYTES % (AUTO) 4.3 % (5-15); NEUTROPHILS # (AUTO) 7.82 10*3/UL; NEUTROPHILS % (AUTO) 72.6 % (50-80); RED BLOOD COUNT 3.99 10^6/uL (4.20-5.40)
[2019-01-30 05:11] LABS: BASOPHILS # (AUTO) 0.04 10*3/UL; EOSINOPHILS # (AUTO) 0.12 10*3/UL; LYMPHOCYTES # (AUTO) 2.33 10*3/uL; MONOCYTES # (AUTO) 0.46 10*3/UL (0.3-0.8); PLATELET MORPHOLOGY COMMENT NORMAL MORPHOLOGY (NORM); RBC MORPHOLOGY COMMENT NORMAL MORPHOLOGY (NORM); WBC MORPHOLOGY COMMENT NORMAL MORPHOLOGY (NORM)
[2019-01-30 05:17] LABS: BUN/CREATININE RATIO 24.28 (6-20)
[2019-01-30] MEDS ORDERED: LEVOTHYROXINE 50 MCG TABLET PO SCH (05:30)
[2019-01-30] MEDS: IPRATROPIUM/ALBUTEROL SULFATE 3 ML NEB NEB SCH ×2 (06:25→19:36)
[2019-01-30] MEDS: BUDESONIDE 0.5 MG/2 ML NEB SCH ×2 (06:26→19:34)
[2019-01-30] MEDS ORDERED: LANSOPRAZOLE 30 MG SOLUTAB PO SCH (07:00)
[2019-01-30] MEDS: LORazepam 2 MG/1 ML VIAL IVP SCH ×2 (08:52→20:39)
[2019-01-30] MEDS ORDERED: AmLODIPine Tab 5 MG TABLET PO SCH (09:00)
[2019-01-30] MEDS ORDERED: TRIMETHOPRIM 100 MG PO SCH (09:00)
[2019-01-30] MEDS ORDERED: Sertraline Tab 100 MG TAB PO SCH (09:00)
[2019-01-30] MEDS ORDERED: Potassium Chloride 20mEq Packet PO SCH (09:00)
[2019-01-30] MEDS: Fluconazole 200mg (Premix) 200 MG/100 ML BAG IV SCH (18:35)
[2019-01-30] MEDS: cefTRIAXone Inj 2 GM in Sodium Chloride 0.9% 100 ML IV SCH (19:52)
[2019-01-30] MEDS: CLOTRIMAZOLE 28.35 GM CREAM TOPICAL SCH (20:39)
[2019-01-31] MEDS: [UNRECOGNIZED DRUG - OTHER] PRIMARY IV SCH ×3 (02:28→18:54)
[2019-01-31] MEDS: OCTREOTIDE ACETATE 50 MCG/1 ML VIAL OR AMP IVP SCH ×3 (02:28→18:54)
[2019-01-31] MEDS: ELECTROLYTE PRIMARY IV SCH ×3 (02:28→18:54)
[2019-01-31] MEDS: GLYCERIN PRIMARY IV SCH ×3 (02:28→18:54)
[2019-01-31] MEDS: IPRATROPIUM/ALBUTEROL SULFATE 3 ML NEB NEB SCH ×2 (06:26→20:29)
[2019-01-31] MEDS: BUDESONIDE 0.5 MG/2 ML NEB SCH ×2 (06:30→20:28)
[2019-01-31] MEDS: metroNIDAZOLE 500mg (Premix) 500 MG/100 ML BAG IV SCH ×3 (06:59→22:53)
[2019-01-31] MEDS: LORazepam 2 MG/1 ML VIAL IVP SCH (09:17)
[2019-01-31] MEDS: CLOTRIMAZOLE 28.35 GM CREAM TOPICAL SCH ×2 (09:18→21:04)
[2019-01-31] MEDS ORDERED: Sertraline Tab 100 MG TAB PO ONE (12:32)
[2019-01-31] MEDS: cefTRIAXone Inj 2 GM in Sodium Chloride 0.9% 100 ML IV SCH (18:54)
[2019-01-31] MEDS ORDERED: LIDOCAINE HCL 2 % 10 ML JELLY URO-JECT TOPICAL PRN (19:37)
[2019-01-31] MEDS: DONEPEZIL 5 MG TABLET PO SCH (20:01)
[2019-01-31] MEDS: LORazepam 1 MG TABLET PO SCH (20:01)
[2019-01-31] MEDS: Fluconazole 200mg (Premix) 200 MG/100 ML BAG IV SCH (20:01)
[2019-01-31] MEDS: QUEtiapine Tab 100 MG TAB PO SCH (20:02)
[2019-02-01] MEDS: OCTREOTIDE ACETATE 50 MCG/1 ML VIAL OR AMP IVP SCH ×3 (02:52→18:41)
[2019-02-01] MEDS: ELECTROLYTE PRIMARY IV SCH ×3 (02:52→22:36)
[2019-02-01] MEDS: [UNRECOGNIZED DRUG - OTHER] PRIMARY IV SCH ×3 (02:52→22:36)
[2019-02-01] MEDS: GLYCERIN PRIMARY IV SCH ×3 (02:52→22:36)
[2019-02-01 05:09] LABS: SERUM ALBUMIN 3.4 g/dL (3.5-4.8)
[2019-02-01 05:12] LABS: Hematocrit [HCT] 34.4 % (37.0-47.0); Hemoglobin [HGB] 11.6 g/dL (12.0-16.0); MEAN CORPUSCULAR VOLUME 95 FL (81-99); RED BLOOD COUNT 3.64 10^6/uL (4.20-5.40)
[2019-02-01 05:13] LABS: BASOPHILS # (AUTO) 0.03 10*3/UL; BASOPHILS % (AUTO) 0.4 % (0-1); EOSINOPHILS # (AUTO) 0.09 10*3/UL; LYMPHOCYTES # (AUTO) 1.74 10*3/uL; MEAN CORPUSCULAR HGB CONC 33.8 g/dL (33-37); MEAN PLATELET VOLUME 7.4 FL (7.4-12.2); MONOCYTES # (AUTO) 0.48 10*3/UL (0.3-0.8); MONOCYTES % (AUTO) 5.5 % (5-15); NEUTROPHILS # (AUTO) 6.36 10*3/UL; NEUTROPHILS % (AUTO) 73.1 % (50-80); PLATELET MORPHOLOGY COMMENT NORMAL MORPHOLOGY (NORM); RBC MORPHOLOGY COMMENT NORMAL MORPHOLOGY (NORM); WBC MORPHOLOGY COMMENT NORMAL MORPHOLOGY (NORM)
[2019-02-01] MEDS: metroNIDAZOLE 500mg (Premix) 500 MG/100 ML BAG IV SCH ×3 (06:56→23:06)
[2019-02-01] MEDS: IPRATROPIUM/ALBUTEROL SULFATE 3 ML NEB NEB SCH (08:15)
[2019-02-01] MEDS: BUDESONIDE 0.5 MG/2 ML NEB SCH ×2 (08:15→19:28)
[2019-02-01] MEDS: LORazepam 1 MG TABLET PO SCH ×2 (09:57→20:04)
[2019-02-01] MEDS: Sertraline Tab 100 MG TAB PO SCH (09:57)
[2019-02-01] MEDS: CLOTRIMAZOLE 28.35 GM CREAM TOPICAL SCH ×2 (16:18→20:04)
[2019-02-01] MEDS: Fluconazole 200mg (Premix) 200 MG/100 ML BAG IV SCH (18:41)
[2019-02-01] MEDS: DONEPEZIL 5 MG TABLET PO SCH (20:03)
[2019-02-01] MEDS: cefTRIAXone Inj 2 GM in Sodium Chloride 0.9% 100 ML IV SCH (20:03)
[2019-02-01] MEDS: QUEtiapine Tab 100 MG TAB PO SCH (20:03)
[2019-02-02] MEDS: OCTREOTIDE ACETATE 50 MCG/1 ML VIAL OR AMP IVP SCH (03:17)
[2019-02-02] MEDS: BUDESONIDE 0.5 MG/2 ML NEB SCH (06:52)
[2019-02-02] MEDS: IPRATROPIUM/ALBUTEROL SULFATE 3 ML NEB NEB SCH ×3 (06:52→18:29)
[2019-02-02] MEDS: metroNIDAZOLE 500mg (Premix) 500 MG/100 ML BAG IV SCH ×3 (07:17→23:27)
[2019-02-02] MEDS: GLYCERIN PRIMARY IV SCH (08:52)
[2019-02-02] MEDS: [UNRECOGNIZED DRUG - OTHER] PRIMARY IV SCH (08:52)
[2019-02-02] MEDS: ELECTROLYTE PRIMARY IV SCH (08:52)
[2019-02-02] MEDS: LORazepam 1 MG TABLET PO SCH ×2 (08:53→21:04)
[2019-02-02] MEDS: Sertraline Tab 100 MG TAB PO SCH (08:53)
[2019-02-02] MEDS: CLOTRIMAZOLE 28.35 GM CREAM TOPICAL SCH ×2 (09:16→21:04)
[2019-02-02] MEDS: ACETAMINOPHEN 325 MG TABLET PO PRN (18:09)
[2019-02-02] MEDS: cefTRIAXone Inj 2 GM in Sodium Chloride 0.9% 100 ML IV SCH (19:02)
[2019-02-03] MEDS: ACETAMINOPHEN 325 MG TABLET PO PRN (03:29)
[2019-02-03] MEDS: metroNIDAZOLE 500mg (Premix) 500 MG/100 ML BAG IV SCH ×2 (06:35→15:11)
[2019-02-03] MEDS: IPRATROPIUM/ALBUTEROL SULFATE 3 ML NEB NEB SCH ×2 (07:25→19:57)
[2019-02-03] MEDS: CLOTRIMAZOLE 28.35 GM CREAM TOPICAL SCH ×2 (09:39→20:53)
[2019-02-03] MEDS: LORazepam 1 MG TABLET PO SCH ×2 (09:39→20:54)
[2019-02-03] MEDS: Sertraline Tab 100 MG TAB PO SCH (09:39)
[2019-02-03] MEDS: cefTRIAXone Inj 2 GM in Sodium Chloride 0.9% 100 ML IV SCH (19:43)
[2019-02-03] MEDS: Loperamide Tab 2 MG TABLET PO PRN (22:40)
[2019-02-04] MEDS: ACETAMINOPHEN 325 MG TABLET PO PRN (05:34)
[2019-02-04] MEDS: Loperamide Tab 2 MG TABLET PO PRN (05:40)
[2019-02-04] MEDS: IPRATROPIUM/ALBUTEROL SULFATE 3 ML NEB NEB SCH (06:27)
[2019-02-04 08:16] VITALS: BP 109/51; RESP 20; TEMP 97.4; O2SAT 94
[2019-02-04] MEDS: LORazepam 1 MG TABLET PO SCH (09:10)
[2019-02-04] MEDS: CLOTRIMAZOLE 28.35 GM CREAM TOPICAL SCH (09:11)
[2019-02-04] MEDS: Sertraline Tab 100 MG TAB PO SCH (09:11)
== END 2019-02-04 10:49 | disposition hospice, home (50) | DRG 178 ==
LOC: MED/SURG 16:45
PROVIDERS: ADMIT Family Medicine; ATTEND Family Medicine